=== PATIENT | female | born 1985 | race African-American/Black ===

== ENCOUNTER 2016-03-07 09:33 | Inpatient (IN) | payer OTHER ==
[2016-03-07] MEDS ORDERED: HYDROmorphone 1 MG/ML 1 ML SYRINGE IVP STA ×2 (10:11→12:18)
[2016-03-07] MEDS ORDERED: SODIUM CHLORIDE 0.9% 1,000 ML IV STA (10:12)
[2016-03-07] MEDS ORDERED: AMPICILLIN-SULBACTAM 3 GM in SODIUM CHLORIDE 0.9% 100 ML IVPB STA (10:13)
[2016-03-07 10:58] LABS: Basophils % (A) 0 %; CH 28.4; CHCM 32.9; Eosinophils # (A) 0.2 k/uL (0-0.7); Eosinophils % (A) 1 %; HCT 36.8 % (34.0-46.0); HDW 2.28; HGB 11.7 gm/dL (11.4-16.0); Luc # (Auto) 0.12; Luc % (Auto) 1; Lymphocytes # (A) 1.9 k/uL (1.0-4.8); Lymphocytes % (A) 14 %; MCH 27.5 pg (25.0-35.0); MCHC 31.7 g/dL (31.0-37.0); MCV 86.7 fL (80.0-100.0); Mean Platelet Volume 7.8; Monocytes # (A) 0.5 k/uL (0-1.0); Monocytes % (A) 4 %; Neutrophils # (A) 10.5 k/uL (1.3-7.7); Neutrophils % (A) 79 %; RBC 4.25 m/uL (3.80-5.40); RDW 12.8 % (11.5-15.5); WBC 13.2 k/uL (3.8-10.6); WBC (Perox) 13.86
[2016-03-07] MEDS ORDERED: IV VANCOMYCIN PER PHARMACY 1 EACH MISC MISCELLANE PRN ×2 (11:01→14:17)
[2016-03-07] MEDS ORDERED: VANCOMYCIN 1,250 MG in SODIUM CHLORIDE 0.9% 250 ML IVPB STA (11:01)
--- NOTE | 2016-03-07 11:01 | ED ---
Skin/Abscess/FB HPI - General Chief complaint: Skin/Abscess/Foreign Body Stated complaint: BOIL UNDER RT ARM Time Seen by Provider: 03/07/16 10:03 Source: patient Mode of arrival: ambulatory Limitations: no limitations - History of Present Illness Initial comments: This 31-year-old after medical female presents complaining of some right axillary pain. She states that she developed the pain and swelling approximately one week ago. She had the abscess drained in the emergency department approximately 3 days ago. This has not improved her symptoms. She rates the pain as severe in nature. She has tried some Motrin as well as [place] with limited relief. She was prescribed Bactrim and she's been taking this. She has a fever of 101 at home. She has a history of hidradenitis suppurativa. She has had previous surgeries on both her left and right axillary regions. No other complaints or modifying factors. - Related Data Home Medications Medication Instructions Recorded Confirmed Ibuprofen [Motrin] 400 mg PO Q6HR PRN 03/07/16 03/07/16 Sulfamethox-Tmp 800-160Mg [Bactrim 1 tab PO Q12HR 03/07/16 03/07/16 DS 800-160 mg] Previous Rx's Medication Instructions Recorded HYDROcodone/APAP 5-325MG [[place] 1 tab PO Q4HR PRN #20 tab 02/05/15 5-325] Allergies Allergy/AdvReac Type Severity Reaction Status Date / Time No Known Allergies Allergy Verified 03/07/16 10:12 Review of Systems ROS Statement: Those systems with pertinent positive or pertinent negative responses have been documented in the HPI. ROS Other: All systems not noted in ROS Statement are negative. Past Medical History Past Medical History: Skin Disorder, Syncope Additional Past Medical History / Comment(s): 02/03/15 Pt admitted to [facility] ER with abscess in L armpit. Pt has had extensive surgery in the past for this abscess but it has come back. Pt was on clindamycin about 2 weeks ago. She is admitted with hidadenitis suppurativa. Other HX: L/R axillae hidradenitis with ABX and surgical txs, syncopy, UTI, chronic pain. History of Any Multi-Drug Resistant Organisms: MRSA Date of last positivie culture/infection: 12/23/2014 MDRO Source:: left axilla Past Surgical History: Section Additional Past Surgical History / Comment(s): R axillary abscess (hidradenitis suppuriativa) removal, L axillary abscess (hidradenitis suppurativa) surgery- large excision with wound vac, sweat glands removed. Past Anesthesia/Blood Transfusion Reactions: No Reported Reaction Additional Past Anesthesia/Blood Transfusion Reaction / Comment(s): Pt received blood without reaction after 1st childbirth. Past Psychological History: Anxiety Additional Psychological History / Comment(s): Works at a local [employer]. Lives in the family home with her children. Did not have a history of experience, travels. No noted current animal exposures. Smoking Status: Current every day smoker Past Alcohol Use History: Occasional Additional Past Alcohol Use History / Comment(s): started smoking at age 19 smokes 1/2 ppd- smoking cessation boooklet given to pt. Past Drug Use History: None Reported - Past Family History Father Family Medical History: No Reported History Additional Family Medical History / Comment(s): Father is healthy Mother Family Medical History: No Reported History Additional Family Medical History / Comment(s): Mother is healthy General Exam - General Exam Comments Initial Comments: GENERAL: The patient is well nourished and well hydrated. VITAL SIGNS: Heart rate, blood pressure, respiratory rate reviewed as recorded in nurse's notes. EYES: Pupils are round and reactive. Extraocular movements are intact. No conjunctival / lid redness or swelling. ENT: No external evidence of injury, swelling, or ecchymosis. Airway is patent. Throat is clear. NECK: Nontender. No swelling or evidence of injury. No subcutaneous emphysema. Trachea is midline. No thyroid mass. HEART: Regular rate and rhythm. Good peripheral pulses. LUNGS/CHEST: Breath sounds clear and equal bilaterally. No rales, rhonchi, or wheezes. No ecchymosis, subcutaneous emphysema, or tenderness. ABDOMEN: Abdomen soft without tenderness. No palpable masses or organomegaly. No peritoneal signs. No abdominal wall swelling or ecchymosis. EXTREMITIES: The patient will barely move her right arm due to the pain associated with the right axillary abscess. No thoracolumbar tenderness. NEUROLOGIC: Sensation is grossly intact. Cranial nerve exam reveals face is symmetrical, tongue is midline, speech is clear. SKIN: There is a large tender fluctuant erythematous abscess noted to the right axillary region. PSYCHIATRIC: Alert and oriented. Appropriate behavior and judgment. Limitations: no limitations Course Vital Signs 03/07/16 03/07/16 03/07/16 09:41 10:01 10:47 Temperature 100.5 F H 98.3 F Pulse Rate 84 86 79 Respiratory 20 18 15 Rate Blood Pressure 130/82 137/72 106/63 O2 Sat by Pulse 99 99 99 Oximetry 03/07/16 11:54 Temperature 98.3 F Pulse Rate 83 Respiratory 14 Rate Blood Pressure 110/63 O2 Sat by Pulse 99 Oximetry Medical Decision Making - Medical Decision Making The patient was seen and examined. All diagnostics were reviewed. An IV is started patient is hydrated. She receives antibiotics intravenously and IV Dilaudid for pain. She is placed on nothing by mouth status. Laboratory is reviewed and it appears that she does have a slight leukocytosis. The case is discussed with Dr. Mason from general surgery and she will see the patient in the near future. It is felt as though the patient may require operative intervention for treatment. She is still having pain on recheck and receives additional Dilaudid. She will be going to the operating room in the near future. - Lab Data Result diagrams: 03/07/16 10:42 03/07/16 10:42 Lab Results 03/07/16 03/07/16 03/07/16 Range/Units 10:42 10:42 10:42 WBC 13.2 H (3.8-10.6) k/uL RBC 4.25 (3.80-5.40) m/uL Hgb 11.7 (11.4-16.0) gm/dL Hct 36.8 (34.0-46.0) % MCV 86.7 (80.0-100.0) fL MCH 27.5 (25.0-35.0) pg MCHC 31.7 (31.0-37.0) g/dL RDW 12.8 (11.5-15.5) % Plt Count 244 (150-450) k/uL Neutrophils % 79 % Lymphocytes % 14 % Monocytes % 4 % Eosinophils % 1 % Basophils % 0 % Neutrophils # 10.5 H (1.3-7.7) k/uL Lymphocytes # 1.9 (1.0-4.8) k/uL Monocytes # 0.5 (0-1.0) k/uL Eosinophils # 0.2 (0-0.7) k/uL Basophils # 0.0 (0-0.2) k/uL PT 10.8 (9.0-12.0) sec INR 1.1 (<1.1) APTT 24.6 (22.0-30.0) sec Sodium 145 (137-145) mmol/L Potassium 4.0 (3.5-5.1) mmol/L Chloride 106 (98-107) mmol/L Carbon Dioxide 26 (22-30) mmol/L Anion Gap 13 mmol/L BUN 5 L (7-17) mg/dL Creatinine 0.60 (0.52-1.04) mg/dL Est GFR (MDRD) Af Amer >60 (>60 ml/min/1.73 sqM) Est GFR (MDRD) Non-Af >60 (>60 ml/min/1.73 sqM) Glucose 109 H (74-99) mg/dL Calcium 10.0 (8.4-10.2) mg/dL Total Bilirubin 0.5 (0.2-1.3) mg/dL AST 14 (14-36) U/L ALT 23 (9-52) U/L Alkaline Phosphatase 72 (38-126) U/L Total Protein 7.4 (6.3-8.2) g/dL Albumin 4.0 (3.5-5.0) g/dL HCG, Qual Not Detected Disposition Clinical Impression: Abscess of right axilla, Hidradenitis suppurativa, Fever, Leukocytosis Disposition: ADMITTED IP TO THIS [facility] Condition: Fair Time of Disposition: : Decision Date: 03/07/16 Decision Time: 13:
[2016-03-07 11:05] LABS: HCG,Qualitative Serum Not Detected
[2016-03-07 11:08] LABS: INR 1.1 (<1.1); Partial Thromboplastin Time 24.6 sec (22.0-30.0); Prothrombin Time 10.8 sec (9.0-12.0)
[2016-03-07 11:18] LABS: ALT 23 U/L (9-52); AST 14 U/L (14-36); Alkaline Phosphatase 72 U/L (38-126); Anion Gap 13 mmol/L; Blood Urea Nitrogen 5 mg/dL (7-17); Carbon Dioxide 26 mmol/L (22-30); Chloride 106 mmol/L (98-107); Glucose 109 mg/dL (74-99); Non-African American GFR(MDRD) >60 (>60 ml/min/1.73 sqM); Sodium 145 mmol/L (137-145); Total Bilirubin 0.5 mg/dL (0.2-1.3); Total Protein 7.4 g/dL (6.3-8.2)
[2016-03-07] MEDS ORDERED: IV FLUID CONTINUATION 1,000 ML IV ONE (14:08)
--- NOTE | 2016-03-07 14:14 | P.GSHP ---
History of Present Illness H&P Date: 03/07/16 Chief Complaint: Right axilla abscess 31 years old female with known history of axillary hidradenitis presents with pain and swelling in the right axilla with decreased range of motion. She had prior incision and drainage of axillary abscess on both sides. She underwent incision and drainage in the ER on Saturday and was started on Bactrim. However this continued to worsen and she comes to ER at [facility]. Prior history of MRSA skin infections. Chronic cigarette smoking half pack per day. Denies use of illicit drug - Review of Systems Comment: Constitutional: Denies fever, weight loss or loss of appetite HEENT: No difficulty in vision or hearing. Denies dysphagia. Cardiovascular: Denies chest pain, palpitations, dizziness, shortness of breath. Respiratory: Recent upper respiratory tract infection with dry cough. Long- standing asthma well controlled with rescue inhalers. Gastrointestinal: No recent change in bowel habits, no abdominal pain, no nausea or vomiting. Genitourinary: No urinary incontinence, hematuria or dysuria Neurologic: No seizures, denies weakness in upper or lower extremities Past Medical History Past Medical History: Skin Disorder, Syncope Additional Past Medical History / Comment(s): 02/03/15 Pt admitted to [facility] ER with abscess in L armpit. Pt has had extensive surgery in the past for this abscess but it has come back. Pt was on clindamycin about 2 weeks ago. She is admitted with hidadenitis suppurativa. Other HX: L/R axillae hidradenitis with ABX and surgical txs, syncopy, UTI, chronic pain. History of Any Multi-Drug Resistant Organisms: MRSA Date of last positivie culture/infection: 12/23/2014 MDRO Source:: left axilla Past Surgical History: Section Additional Past Surgical History / Comment(s): R axillary abscess (hidradenitis suppuriativa) removal, L axillary abscess (hidradenitis suppurativa) surgery- large excision with wound vac, sweat glands removed. Past Anesthesia/Blood Transfusion Reactions: No Reported Reaction Additional Past Anesthesia/Blood Transfusion Reaction / Comment(s): Pt received blood without reaction after 1st childbirth. 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 Lives in the family home with her children. Did not have a history of experience, travels. No noted current animal exposures. Smoking Status: Current every day smoker Past Alcohol Use History: Occasional Additional Past Alcohol Use History / Comment(s): started smoking at age 19 smokes 1/2 ppd- smoking cessation boooklet given to pt. Past Drug Use History: None Reported - Past Family History Father Family Medical History: No Reported History Additional Family Medical History / Comment(s): Father is healthy Mother Family Medical History: No Reported History Additional Family Medical History / Comment(s): Mother is healthy Medications and Allergies Home Medications Medication Instructions Recorded Confirmed Type Ibuprofen [Motrin] 400 mg PO Q6HR PRN 03/07/16 03/07/16 History Sulfamethox-Tmp 800-160Mg [Bactrim 1 tab PO Q12HR 03/07/16 03/07/16 History DS 800-160 mg] Allergies Allergy/AdvReac Type Severity Reaction Status Date / Time No Known Allergies Allergy Verified 03/07/16 10:12 Surgical - Exam Vital Signs Temp Pulse Resp BP Pulse Ox 100.5 F H 84 20 130/82 99 03/07/16 09:41 03/07/16 09:41 03/07/16 09:41 03/07/16 09:41 03/07/16 09:41 Gen.: Patient is alert and oriented to time place and person and cooperative with exam. She is in distress and crying secondary to pain. Chest: Bilateral breath sounds present Cardiovascular: S1 and S2 with no murmurs Integumentary: Multiple abscesses in right axilla with chronic hidradenitis Musculoskeletal: Limited range of motion of the right arm secondary to pain Results - Labs 03/07/16 10:42 03/07/16 10:42 Assessment and Plan (1) Abscess of right axilla Status: Acute (2) Leukocytosis Status: Acute (3) Hidradenitis suppurativa Status: Acute (4) Leukocytosis Status: Acute Plan: Right axillary abscess Known axillary hidradenitis Vancomycin IV in ER Incision and drainage in operating room. Full consent obtained from the patient after explaining the risks, benefits and potential complications and she elected to undergo right axillary incision and drainage for axillary abscess. The risks, benefits and potential complications were discussed and she elected to undergo the procedure.
[2016-03-07] MEDS ORDERED: ONDANSETRON 4 MG/2 ML VIAL ONE (14:23)
[2016-03-07] MEDS ORDERED: PROPOFOL 10 MG/ML 20 ML VIAL IV ONE (14:23)
[2016-03-07] MEDS ORDERED: fentaNYL (PF) 50 MCG/ML 2 ML AMP ONE (14:23)
[2016-03-07] MEDS ORDERED: LIDOCAINE 1% INJ 10MG/ML (20 ML MDV) ONE (14:23)
[2016-03-07] MEDS ORDERED: SODIUM CHLORIDE 0.9% 1,000 ML BAG ONE (14:23)
[2016-03-07] MEDS ORDERED: SUCCINYLCHOLINE CHLORIDE 100 MG/5 ML SYR IV ONE (14:23)
[2016-03-07] MEDS ORDERED: HYDROmorphone (PF) 1 MG/ML ONE (14:23)
[2016-03-07] MEDS ORDERED: MIDAZOLAM 2 MG/2 ML VIAL ONE (14:23)
--- NOTE | 2016-03-07 14:55 | P.OP ---
Date of Procedure: 03/07/16 Preoperative Diagnosis: Right axillary abscess History of multiple axillary abscess and MRSA infection Bilateral axillary hidradenitis Chronic smoking Postoperative Diagnosis: Same Procedure(s) Performed: Incision and drainage of right axillary abscess. Post debridement measurement 3 x 2 x 1 cm. Implants: NA Anesthesia: CRISTINEA Surgeon: Jessica Mason Pathology: other Condition: other (ASA2) Disposition: PACU Indications for Procedure: 31 years old female with prior history of axillary abscesses secondary to hydradenitis and chronic smoking presents with painful swelling and limited range of motion of the right arm. She is febrile and has leukocytosis secondary to axillary abscess. Informed consent obtained from the patient and she elected to undergo incision and drainage of right axillary abscess. The risks, benefits and potential complications were discussed with the patient. Operative Findings: Right axillary abscess. 10 mL of farhana pus drained. Final post-debridement measurement 3 x 1 x 2 cm. Description of Procedure: Patient was brought to the operating room and placed in supine position with both arms out. Gen. anesthesia with endotracheal intubation was performed as per anesthesia team. Chlorhexidine was used to prep the skin followed by application of sterile drapes. A timeout was performed to verify correct patient, correct procedure and correct side. A 3 x 1cm elliptical incision was made over the area of maximum fluctuance using Bovie electrocautery. 10 mL of farhana pus was drained which was sent for aerobic and anaerobic cultures. The cavity was opened. Post debridement cavity measured 3 x 1 x 2 cm. Hemostasis was checked. The cavity was irrigated with half-strength hydrogen peroxide. This was packed with half-inch iodoform. Dressings were applied. Patient tolerates procedure well and was taken to postanesthesia care unit in stable condition. The sponge, instrument and needle count were correct 2 Patient tolerated the procedure well and was sent to post anesthesia care unit in stable condition.
[2016-03-07] MEDS ORDERED: HYDROmorphone 1 MG/ML 1 ML SYRINGE IVP ONE ×4 (15:21→15:45)
[2016-03-07] MEDS ORDERED: SODIUM CHLORIDE 0.9% 1,000 ML IV ONE ×2 (17:00)
[2016-03-07] MEDS: DOCUSATE 100 MG CAP PO SCH (19:44)
[2016-03-07] MEDS: HYDROmorphone 1 MG/ML 1 ML SYRINGE IVP PRN (19:44)
[2016-03-07] MEDS: HEPARIN SODIUM,PORCINE 5,000 UNIT/ML 1 ML VIAL SQ SCH (19:44)
[2016-03-07] MEDS: HYDROcodone/APAP 5-325MG 1 EACH TAB PO PRN (21:08)
[2016-03-07] MEDS: VANCOMYCIN 1,250 MG in SODIUM CHLORIDE 0.9% 250 ML IVPB SCH (21:30)
[2016-03-08] MEDS: HEPARIN SODIUM,PORCINE 5,000 UNIT/ML 1 ML VIAL SQ SCH ×4 (00:13→23:52)
[2016-03-08] MEDS: HYDROcodone/APAP 5-325MG 1 EACH TAB PO PRN ×4 (00:28→20:29)
[2016-03-08] MEDS: HYDROmorphone 1 MG/ML 1 ML SYRINGE IVP PRN ×4 (01:52→22:10)
[2016-03-08 07:11] LABS: Basophils % (A) 0 %; CH 27.9; CHCM 31.8; Eosinophils # (A) 0.2 k/uL (0-0.7); Eosinophils % (A) 2 %; HCT 31.6 % (34.0-46.0); HDW 2.21; HGB 10.1 gm/dL (11.4-16.0); Luc # (Auto) 0.21; Luc % (Auto) 2; Lymphocytes # (A) 2.8 k/uL (1.0-4.8); Lymphocytes % (A) 27 %; MCH 28.2 pg (25.0-35.0); MCV 88.1 fL (80.0-100.0); Monocytes # (A) 0.4 k/uL (0-1.0); Monocytes % (A) 4 %; Neutrophils % (A) 66 %; RBC 3.58 m/uL (3.80-5.40); RDW 12.6 % (11.5-15.5); WBC 10.7 k/uL (3.8-10.6); WBC (Perox) 11.39
[2016-03-08 07:32] LABS: ALT 22 U/L (9-52); AST 13 U/L (14-36); Alkaline Phosphatase 63 U/L (38-126); Anion Gap 8 mmol/L; Blood Urea Nitrogen 4 mg/dL (7-17); Calcium 8.8 mg/dL (8.4-10.2); Carbon Dioxide 26 mmol/L (22-30); Chloride 106 mmol/L (98-107); Glucose 96 mg/dL (74-99); Non-African American GFR(MDRD) >60 (>60 ml/min/1.73 sqM); Sodium 140 mmol/L (137-145); Total Bilirubin 0.3 mg/dL (0.2-1.3)
[2016-03-08] MEDS ORDERED: HYDROmorphone 1 MG/ML 1 ML SYRINGE IVP STA (08:45)
[2016-03-08] MEDS: DOCUSATE 100 MG CAP PO SCH ×2 (09:02→20:30)
[2016-03-08] MEDS: VANCOMYCIN 1,250 MG in SODIUM CHLORIDE 0.9% 250 ML IVPB SCH ×2 (09:03→19:45)
[2016-03-08] MEDS ORDERED: KETOROLAC 30 MG/ML 1 ML VIAL IVP PRN (13:06)
--- NOTE | 2016-03-08 13:41 | P.PN ---
Subjective Principal diagnosis: Right axilla abscess S/P incision and drainage of right axillary abscess. Postop day #1. Pain is fairly controlled. No fever or chills or rigors. Bactrim has been removed and repacked. Cultures no growth. Leukocytosis improving. Objective - Vital Signs Vital signs: Vital Signs Temp 96.4 F L 03/08/16 09:54 Pulse 68 03/08/16 09:54 Resp 16 03/08/16 09:54 BP 115/77 03/08/16 09:54 Pulse Ox 100 03/08/16 09:54 Intake & Output 03/07/16 03/08/16 03/08/16 18:59 06:59 18:59 Intake Total 1000 1580 Output Total 10 Balance 990 1580 Intake: IV 1000 Intake, IV Titration 800 Amount Sodium Chloride 0.9% 1, 800 000 ml As IV .[employer] ONE Rx#:[id number] Oral 780 Output: Estimated Blood Loss 10 Other: Voiding Method Toilet - Exam Patient is alert and oriented to time And Person and Cooperative with Exam. Packing in place with dressing clean dry and intact. - Labs CBC & Chem 7: 03/08/16 06:42 03/08/16 06:42 Labs: Abnormal Lab Results - Last 24 Hours (Table) 03/08/16 03/08/16 Range/Units 06:42 06:42 WBC 10.7 H (3.8-10.6) k/uL RBC 3.58 L (3.80-5.40) m/uL Hgb 10.1 L (11.4-16.0) gm/dL Hct 31.6 L (34.0-46.0) % BUN 4 L (7-17) mg/dL AST 13 L (14-36) U/L Total Protein 6.0 L (6.3-8.2) g/dL Albumin 3.0 L (3.5-5.0) g/dL Microbiology - Last 24 Hours (Table) 03/07/16 14:44 Gram Stain - Preliminary Axilla - Right Wound Culture - Preliminary 03/07/16 14:44 Anaerobic Culture - Preliminary Axilla - Right Assessment and Plan (1) Abscess of right axilla Status: Acute (2) Leukocytosis Status: Acute (3) Hidradenitis suppurativa Status: Acute (4) Leukocytosis Status: Acute Plan: 1. Remove packing. Let patient shower. Repack with aquacel silver 2. Consult case management for home health care nursing 3. Antibiotics as per infectious disease 4. Stable from discharge from general surgery standpoint
--- NOTE | 2016-03-08 15:33 | P.PN ---
Progress Note - Text circuit manager did offer home care to be set up for treatment and follow-up and home care setting as requested by surgical service patient is refusing home care at this time states that she has a mother and feels that between her mother and herself she can take care of the wound and does not want home care as offered at this time is declining home care
--- NOTE | 2016-03-08 20:06 | P.CONS ---
History of Present Illness - Reason for Consult Consult date: 03/08/16 - Chief Complaint Abscess right axilla - History of Present Illness 31-year-old woman presents to hospital with increasing pain to her right axilla. She was having some outpatient therapy but despite this the area became considerably more painful, swollen with drainage. With history of a prior extensive abscess to the left axilla she presented emergency center. She' s been seen by general surgery and taken to the operating room for the debridement of the extensive abscess area to the right axillary site. Overall goal will be to debrided the site well to prevent further abscess formation as was very successful to the left axilla. She has a known history of hidradentis suppurativa. She does have a known history of prior MRSA infection. She does relate she was in the outpatient setting and started on antibiotic therapy but never had enough improvement before she presented to the emergency center for the surgical intervention. Other than pain she's doing quite well. She denying high-grade fevers, chills or rigors. Review of Systems HEENT:Denies headache or acute visual change. Denies sinus or mouth discomforts. Denies neck stiffness or pain. Denies significant oral cavity pain. Denies difficulty on swallowing. Lungs: Denies significant shortness of breath, cough, sputum production, or hemoptysis. Cardiovascular: Denies significant shortness of breath, chest pain, chest wall pain, orthopnea, dyspnea on exertion, syncope Gastrointestinal:Denies nausea, vomiting, diarrhea, constipation, hematemesis, melena, hematochezia. No no significant change of bowel habit noticed. Appetite however is been poor Musculoskeletal: denies significant myalgias or arthralgias. No new joint swelling. Denies new back pain. Skin: Significant abscess to the right axilla. Prior abscess left axilla completely healed after the drainage and wound VAC therapy. Neuro: Denies headache or visual change. Denies any new onset weakness or difficulty with ambulation. Denies falls or seizures. Psychiatric:Denies anxiety or depression. Endocrine: Denies significant fatigue, denies significant weight loss or weight gain. Past Medical History Past Medical History: Skin Disorder, Syncope Additional Past Medical History / Comment(s): 03-07-16 RT AXILLARY ABCESS. Pt admitted to [facility] ER with abscess in L armpit. Pt has had extensive surgery in the past for this abscess but it has come back. Pt was on clindamycin about 2 weeks ago. She is admitted with hidadenitis suppurativa. Other HX: L/R axillae hidradenitis with ABX and surgical txs, syncopy, UTI, chronic pain. History of Any Multi-Drug Resistant Organisms: MRSA Year Discovered:: 12/23/2014 MDRO Source:: left axilla Past Surgical History: Section Additional Past Surgical History / Comment(s): R axillary abscess (hidradenitis suppuriativa) removal, L axillary abscess (hidradenitis suppurativa) surgery- large excision with wound vac, sweat glands removed.03-07-16 I&D RT AXILLARY ABCESS. Past Anesthesia/Blood Transfusion Reactions: No Reported Reaction Additional Past Anesthesia/Blood Transfusion Reaction / Comm: Pt received blood without reaction after 1st childbirth. Past Psychological History: Anxiety Additional Psychological History / Comment(s): Works at a local [employer]. Lives in the family home with her MOM and children. Did not have a history of experience, travels. No noted current animal exposures. Smoking Status: Current every day smoker Past Alcohol Use History: Occasional Additional Past Alcohol Use History / Comment(s): started smoking at age 19 smokes 1/2 ppd- smoking cessation boooklet given to pt. Past Drug Use History: None Reported - Past Family History Father Family Medical History: No Reported History Additional Family Medical History / Comment(s): Father is healthy Mother Family Medical History: No Reported History Additional Family Medical History / Comment(s): Mother is healthy Medications and Allergies Home Medications and Allergies Comment(s): Current Medications Acetaminophen/Hydrocodone Bitart ([place] 5-325) 1 each PO Q4HR PRN PRN Reason: moderate Pain Last Admin: 03/08/16 15:44 Dose: 1 each Docusate Sodium (Colace) 100 mg PO BID HAYDEE Last Admin: 03/08/16 09:02 Dose: 100 mg Heparin Sodium (Porcine) (Heparin) 5,000 unit SQ Q8HR HAYDEE Last Admin: 03/08/16 19:45 Dose: 5,000 unit Hydromorphone HCl (Dilaudid) 1 mg IVP Q6HR PRN PRN Reason: severe pain Last Admin: 03/08/16 16:54 Dose: 1 mg Vancomycin HCl 1,250 mg/ (Sodium Chloride) 250 mls @ 125 mls/hr IVPB Q8HR HAYDEE Last Admin: 03/08/16 19:45 Dose: 125 mls/hr Ketorolac Tromethamine (Toradol) 30 mg IVP Q6HR PRN PRN Reason: pain Stop: 03/12/16 13:06 Miscellaneous Information (Vancomycin Trough Due) 0 each MISCELLANE DIRECTED ONE Stop: 03/09/16 07:01 Home Medications Medication Instructions Recorded Confirmed Type Ibuprofen [Motrin] 400 mg PO Q6HR PRN 03/07/16 03/07/16 History Sulfamethox-Tmp 800-160Mg [Bactrim 1 tab PO Q12HR 03/07/16 03/07/16 History DS 800-160 mg] Allergies Allergy/AdvReac Type Severity Reaction Status Date / Time No Known Allergies Allergy Verified 03/07/16 10:12 Physical Exam Vitals: Vital Signs Temp Pulse Pulse Resp BP Pulse Ox 03/08/16 15:00 97 F L 63 17 115/69 100 03/08/16 09:54 96.4 F L 68 16 115/77 100 03/08/16 06:00 97.9 F 66 16 102/56 99 03/07/16 20:15 90 106/70 100 03/07/16 20:00 94 108/63 96 Intake and Output 03/08/16 03/08/16 03/08/16 06:59 14:59 22:59 Intake Total 1280 Balance 1280 Intake: Intake, IV Titration 800 Amount Sodium Chloride 0.9% 1, 800 000 ml As IV .[facility] Rx#:[id number] Oral 480 HEENT: Anicteric conjunctiva are pink and moist nasal mucosa grossly intact without significant lesions, there is no thrush. Neck: The neck is supple without significant lymphadenopathy or thyromegaly. Lungs: Good bilateral air entry without significant crackles or wheezing. There is no significant bronchial sounds. There is no egophony or dullness. Heart: Regular rate and rhythm with an audible S1-S2, no S3 no S4. There is no significant murmur click or rub, PMI was nondisplaced. Abdomen: Positive bowel sounds soft and nontender without palpable masses or organomegaly. There was no guarding or rebound. Extremities: Upper extremities reveal complete resolution of the prior abscess of the effects of with complete healing and minimal scar formation. The right axilla is evidence of the recent surgical incision and drainage. The packing is removed. It is repacked with the silver dressing. She received Dilaudid for pain control. There is no purulence being seen. The site is somewhat tender. No extensive or traveling cellulitis is noted Neuro: Awake alert oriented to person place and time. There are no acute new gross focal sensory motor deficits. Results CBC & Chem 7: 03/08/16 06:42 03/08/16 06:42 Labs: Abnormal Lab Results - Last 24 Hours (Table) 03/08/16 03/08/16 Range/Units 06:42 06:42 WBC 10.7 H (3.8-10.6) k/uL RBC 3.58 L (3.80-5.40) m/uL Hgb 10.1 L (11.4-16.0) gm/dL Hct 31.6 L (34.0-46.0) % BUN 4 L (7-17) mg/dL AST 13 L (14-36) U/L Total Protein 6.0 L (6.3-8.2) g/dL Albumin 3.0 L (3.5-5.0) g/dL Microbiology - Last 24 Hours (Table) 03/07/16 15:36 Blood Culture - Preliminary Blood No Growth after 24 hours 03/07/16 14:44 Gram Stain - Preliminary Axilla - Right Wound Culture - Preliminary 03/07/16 14:44 Anaerobic Culture - Preliminary Axilla - Right Laboratory Results WBC 10.7 k/uL (3.8-10.6) H 03/08/16 06:42 RBC 3.58 m/uL (3.80-5.40) L 03/08/16 06:42 Hgb 10.1 gm/dL (11.4-16.0) L 03/08/16 06:42 Hct 31.6 % (34.0-46.0) L 03/08/16 06:42 MCV 88.1 fL (80.0-100.0) 03/08/16 06:42 MCH 28.2 pg (25.0-35.0) 03/08/16 06:42 MCHC 32.0 g/dL (31.0-37.0) 03/08/16 06:42 RDW 12.6 % (11.5-15.5) 03/08/16 06:42 Plt Count 217 k/uL (150-450) 03/08/16 06:42 Neutrophils % 66 % 03/08/16 06:42 Lymphocytes % 27 % 03/08/16 06:42 Monocytes % 4 % 03/08/16 06:42 Eosinophils % 2 % 03/08/16 06:42 Basophils % 0 % 03/08/16 06:42 Neutrophils # 7.0 k/uL (1.3-7.7) 03/08/16 06:42 Lymphocytes # 2.8 k/uL (1.0-4.8) 03/08/16 06:42 Monocytes # 0.4 k/uL (0-1.0) 03/08/16 06:42 Eosinophils # 0.2 k/uL (0-0.7) 03/08/16 06:42 Basophils # 0.0 k/uL (0-0.2) 03/08/16 06:42 PT 10.8 sec (9.0-12.0) 03/07/16 10:42 INR 1.1 (<1.1) 03/07/16 10:42 APTT 24.6 sec (22.0-30.0) 03/07/16 10:42 Sodium 140 mmol/L (137-145) 03/08/16 06:42 Potassium 4.0 mmol/L (3.5-5.1) 03/08/16 06:42 Chloride 106 mmol/L (98-107) 03/08/16 06:42 Carbon Dioxide 26 mmol/L (22-30) 03/08/16 06:42 Anion Gap 8 mmol/L 03/08/16 06:42 BUN 4 mg/dL (7-17) L 03/08/16 06:42 Creatinine 0.65 mg/dL (0.52-1.04) 03/08/16 06:42 Est GFR (MDRD) Af Amer >60 (>60 ml/min/1.73 sqM) 03/08/16 06:42 Est GFR (MDRD) Non-Af >60 (>60 ml/min/1.73 sqM) 03/08/16 06:42 Glucose 96 mg/dL (74-99) 03/08/16 06:42 Calcium 8.8 mg/dL (8.4-10.2) 03/08/16 06:42 Total Bilirubin 0.3 mg/dL (0.2-1.3) 03/08/16 06:42 AST 13 U/L (14-36) L 03/08/16 06:42 ALT 22 U/L (9-52) 03/08/16 06:42 Alkaline Phosphatase 63 U/L (38-126) 03/08/16 06:42 Total Protein 6.0 g/dL (6.3-8.2) L 03/08/16 06:42 Albumin 3.0 g/dL (3.5-5.0) L 03/08/16 06:42 HCG, Qual Not Detected 03/07/16 10:42 Microbiology 03/07/16 15:36 Blood Blood Culture - Preliminary No Growth after 24 hours 03/07/16 14:44 Axilla - Right Gram Stain - Preliminary 03/07/16 14:44 Axilla - Right Wound Culture - Preliminary 03/07/16 14:44 Axilla - Right Anaerobic Culture - Preliminary Assessment and Plan (1) Abscess of right axilla Narrative/Plan: Pleasant 31-year-old woman presents to Hospital with increasing pain and difficulties to the right axillary area. Has a history of prior abscess to the other axilla to require surgical drainage. Because she was not improving at home percentage emergency center and was admitted. She's been seen by surgery as had the incision and drainage and debridement to that area. She'll follow will allow a similar outcome she's had to her left axilla. Sometimes surgical debridements are ideal in persons with her chronic inflammatory skin condition. Likely has MRSA infection and is currently receiving vancomycin therapy. Await final cultures and hopefully we'll to go home on Bactrim double strength 3 times per day to complete her course of therapy over the next 10-14 days. Will need to have home care so the axillary abscess site can be packed with the silver rope 3 times per week. She understands importance of adequate protein intake. Also but it was zinc as requested. Status: Acute (2) Hidradenitis suppurativa Status: Acute (3) Leukocytosis Status: Acute
--- NOTE | 2016-03-08 21:24 | HP ---
DATE OF ADMISSION: [id number][id number]-old female with history of hidradenitis suppurativa came in with abscess of right axilla ( ) the patient does not have any chills, nausea, vomiting. Patient is on IV fluids. Patient was complaining of severe pain in that area. Biopsy ( ) microbiology showing Gram-positive cocci as well as Gram-negative bacilli. Patient was given a dose of Unasyn and Infectious Disease has already evaluated the patient. They continued vancomycin. I will let Infectious Disease aware of the Gram-negative ( ) in the culture of the axilla. REVIEW OF SYSTEMS: CONSTITUTIONAL: No fever, no malaise, no fatigue. HEENT: No recent visual problems or hearing problems. Denied any sore throat. CARDIOVASCULAR: No chest pain, orthopnea, PND, no palpitations, no syncope. PULMONARY: No shortness of breath, no cough, no hemoptysis. GASTROINTESTINAL: No diarrhea, no nausea, no vomiting, no abdominal pain. Normoactive bowel sounds. NEUROLOGICAL: No headaches, no weakness, no numbness. HEMATOLOGICAL: Denies any bleeding or petechiae. GENITOURINARY: Denies any burning micturition, frequency, or urgency. MUSCULOSKELETAL/RHEUMATOLOGICAL: As described in HPI. ENDOCRINE: Denies any polyuria or polydipsia. The rest of the 14 point review of systems is negative. Past medical history is significant for hidradenitis suppurativa, ( ) in the past, MRSA in the past. SOCIAL HISTORY: Patient is a smoker; smokes about half a pack per day. Denied any alcohol abuse or any drug abuse. FAMILY HISTORY: Father and mother are healthy, without any significant medical problems. Home medications include ibuprofen, Bactrim. ALLERGIES: NO KNOWN DRUG ALLERGIES. PHYSICAL EXAMINATION: VITAL SIGNS: Temperature 100.5, pulse of 84, respiratory rate of 20. Blood pressure is 130/82. saturating at 99% on room air. GENERAL: The patient is alert and oriented x3, not in any acute distress. Well developed, well nourished. HEENT: Pupils are round and equally reacting to light. EOMI. No scleral icterus. No conjunctival pallor. Normocephalic, atraumatic. No pharyngeal erythema. No thyromegaly. CARDIOVASCULAR: S1 and S2 present. No murmurs, rubs, or gallops. PULMONARY: Chest is clear to auscultation, no wheezing or crackles. ABDOMEN: Soft, nontender, nondistended, normoactive bowel sounds. No palpable organomegaly. MUSCULOSKELETAL: No joint swelling or deformity. EXTREMITIES: No cyanosis, clubbing, or pedal edema. NEUROLOGICAL: Gross neurological examination did not reveal any focal deficits. SKIN: No rashes. RIGHT AXILLA: Patient is post-surgically packed, because of which I did not remove the packing. That was already examined by Infectious Disease as well as Surgery. NEUROLOGICAL: Gross neurological examination did not reveal any focal deficits. SKIN: No rashes. LABORATORY DATA: CBC, CMP are abnormal for elevated WBC count of 13,200, hemoglobin 11.7. ASSESSMENT AND PLAN: 1. Sepsis secondary to right axillary abscess. Patient is on vancomycin. Continue with IV fluids. 2. Axillary abscess is secondary to hidradenitis suppurativa. 3. Nicotine abuse. Counseling was provided. 4. Leukocytosis due to assessment #1. Plan is to continue with IV fluids, IV vancomycin. Because of the microbiology report, patient may need Gram-negative coverage with Unasyn as well as anaerobic coverage. Patient's primary care physician is Dr. Richardson.
[2016-03-09] MEDS: VANCOMYCIN 1,250 MG in SODIUM CHLORIDE 0.9% 250 ML IVPB SCH ×3 (00:40→15:52)
[2016-03-09] MEDS: HYDROmorphone 1 MG/ML 1 ML SYRINGE IVP PRN ×2 (06:29→12:59)
[2016-03-09] MEDS ORDERED: VANCOMYCIN TROUGH DUE 1 EACH MISC MISCELLANE ONE (07:00)
[2016-03-09 07:14] LABS: CHCM 31.8; HCT 31.7 % (34.0-46.0); HGB 10.2 gm/dL (11.4-16.0); MCH 28.5 pg (25.0-35.0); MCHC 32.2 g/dL (31.0-37.0); MCV 88.5 fL (80.0-100.0); Mean Platelet Volume 7.1; RBC 3.59 m/uL (3.80-5.40); RDW 12.6 % (11.5-15.5); WBC 5.7 k/uL (3.8-10.6)
[2016-03-09 07:50] LABS: Anion Gap 8 mmol/L; Blood Urea Nitrogen 4 mg/dL (7-17); Calcium 8.9 mg/dL (8.4-10.2); Carbon Dioxide 24 mmol/L (22-30); Chloride 109 mmol/L (98-107); Glucose 86 mg/dL (74-99); Non-African American GFR(MDRD) >60 (>60 ml/min/1.73 sqM); Sodium 141 mmol/L (137-145)
[2016-03-09] MEDS: DOCUSATE 100 MG CAP PO SCH (07:51)
[2016-03-09] MEDS: HEPARIN SODIUM,PORCINE 5,000 UNIT/ML 1 ML VIAL SQ SCH ×2 (07:51→15:52)
[2016-03-09] MEDS: HYDROcodone/APAP 5-325MG 1 EACH TAB PO PRN ×3 (07:52→18:21)
[2016-03-09] MEDS ORDERED: MULTIVITAMINS, THERA 1 EACH TAB PO SCH (12:00)
--- NOTE | 2016-03-09 12:23 | P.PN ---
<Danielle Martínez Nusrat - Last Filed: 03/09/16 12:14> Subjective 31-year-old female being seen on rounds per surgical service for a postop surgical visit in a patient who is status post debridement of an extensive abscess area involving the right axillary area. Currently the patient is sitting up in bed. There is a dressing to the right axillary area is dry. Patient does have a history of prior MRSA infection. Patient has a known history of hidradentis suppurativa. Patient reportedly had been followed in the outpatient setting for the abscess involving the right axillary area had started on antibiotic therapy but there was no significant improvement. Patient presented to the emergency room for surgical intervention which the patient elected to proceed. Did undergo the surgical intervention with a debridement done on March 08. Did discuss with the patient at the bedside the need for home care to participate in the plan of care and that the patient needed to have 3 times a week silver rope packing to the axillary upset site. Patient is now agreeing to have home care set up. Did discuss with the patient case manager who will set up home care for the wound care management Objective - Vital Signs Vital signs: Vital Signs Temp 96.8 F L 03/09/16 07:00 Pulse 64 03/09/16 07:00 Resp 16 03/09/16 07:00 BP 112/64 03/09/16 07:00 Pulse Ox 99 03/09/16 07:00 Intake & Output 03/08/16 03/09/16 03/09/16 18:59 06:59 18:59 Intake Total 1640 Balance 1640 Intake: IV 250 Vancomycin 1,250 mg In 250 Sodium Chloride 0.9% 250 ml @ 125 mls/hr IVPB Q8HR [facility] Rx#:[id number] Intake, IV Titration 650 Amount Sodium Chloride 0.9% 1, 650 000 ml As IV .[facility] Rx#:[id number] Oral 740 Other: Voiding Method Toilet # Voids 1 - Exam Physical exam 31-year-old female talkative appears in no acute distress sitting up oriented 3 Lungs essentially clear adequate air movement bilaterally room air no conversational dyspnea noted Heart S1-S2 audible and regular Abdomen soft nontender reports no nausea vomiting no difficulty in urinating Extremities no pedal edema. The right axillary area surgical dressing in place dressing is dry - Labs CBC & Chem 7: 03/09/16 06:57 03/09/16 06:57 Labs: Abnormal Lab Results - Last 24 Hours (Table) 03/09/16 03/09/16 Range/Units 06:57 06:57 RBC 3.59 L (3.80-5.40) m/uL Hgb 10.2 L (11.4-16.0) gm/dL Hct 31.7 L (34.0-46.0) % Chloride 109 H (98-107) mmol/L BUN 4 L (7-17) mg/dL Microbiology - Last 24 Hours (Table) 03/07/16 15:36 Blood Culture - Preliminary Blood No Growth after 24 hours Assessment and Plan Plan: Impression Status post incision and drainage and debridement of an extensive abscess right axillary area done on March 08 Present on admission right axillary abscess failed outpatient treatment with antibiotic therapy Acute leukocytosis History of prior MRSA infections History of hidradenitis supprativa Chronic nicotine dependency active smoker Plan Continue postop surgical care Continue recommendations antibiotic by infectious disease Follow-up on wound culture Wound care as ordered Silvadene rope packing 3 times a week to the wound right axillary area Patient's been advised to stop smoking cigarettes Set up home care to participate in the plan of care patient has agreed The above dictated assessment and findings were discussed with dr mason Impression and the plan of care have been dictated as directed. Danielle Martínez nurse practitioner acting as a scribe for dr mason <Jessica Mason - Last Filed: 03/09/16 17:13> Objective - Vital Signs Vital signs: Vital Signs Temp 96.4 F L 03/09/16 13:32 Pulse 86 03/09/16 13:32 Resp 17 03/09/16 13:32 BP 121/81 03/09/16 13:32 Pulse Ox 100 03/09/16 13:32 Intake & Output 03/08/16 03/09/16 03/09/16 18:59 06:59 18:59 Intake Total 1640 610 Balance 1640 610 Intake: IV 250 250 Vancomycin 1,250 mg In 250 250 Sodium Chloride 0.9% 250 ml @ 125 mls/hr IVPB Q8HR [facility] Rx#:[id number] Intake, IV Titration 650 Amount Sodium Chloride 0.9% 1, 650 000 ml As IV .[facility] Rx#:[id number] Oral 740 360 Other: Voiding Method Toilet # Voids 1 - Labs CBC & Chem 7: 03/09/16 06:57 03/09/16 06:57 Labs: Abnormal Lab Results - Last 24 Hours (Table) 03/09/16 03/09/16 Range/Units 06:57 06:57 RBC 3.59 L (3.80-5.40) m/uL Hgb 10.2 L (11.4-16.0) gm/dL Hct 31.7 L (34.0-46.0) % Chloride 109 H (98-107) mmol/L BUN 4 L (7-17) mg/dL Microbiology - Last 24 Hours (Table) 03/07/16 15:36 Blood Culture - Preliminary Blood No Growth after 24 hours Assessment and Plan (1) Abscess of right axilla Status: Acute (2) Leukocytosis Status: Acute (3) Hidradenitis suppurativa Status: Acute (4) Leukocytosis Status: Acute Plan: Patient examined. C/O increased pain requiring IV dilaudid . Packing removed with resolution of pain. Wound is clean and has minimmal exudates. USe Aquacel silver rope for packing instead. There were disintegrated pieces of dressing inside the wound. Hence, I recommend using Aquacel silver rope only. Leucocytosis resolved. Cultures- final growth pending. On IV vanco. Antibiotics at discharge as per ID . Home health care nurse for packing changes . Follow up with Dr. Mason in 7-10 days.
[2016-03-09 13:33] VITALS: BP 121/81; PULSE 86; RESP 17; TEMP 96.4
--- NOTE | 2016-03-09 18:07 | PN ---
Patient is admitted with a right arm abscess secondary to hidradenitis suppurativa. Patient is complaining of pain in that area. REVIEW OF SYSTEMS: CARDIOVASCULAR: No chest pain, no orthopnea, no PND, no palpitations. PULMONARY: Denied any shortness of breath. No cough or hemoptysis. GASTROINTESTINAL: No diarrhea, nausea or vomiting. No abdominal pain. Normoactive bowel sounds. NEUROLOGIC: No headaches, no weakness, no numbness. MUSCULOSKELETAL: As described in HPI. Medications were reviewed. PHYSICAL EXAMINATION: VITAL SIGNS: Temperature 96.4, pulse of 86, respiratory rate of 17, blood pressure 128/81. Saturating at 100% on room air. GENERAL: The patient is alert and oriented x3, not in any acute distress. Well developed, well nourished. HEENT: Pupils are round and equally reacting to light. EOMI. No scleral icterus. No conjunctival pallor. Normocephalic, atraumatic. No pharyngeal erythema. No thyromegaly. CARDIOVASCULAR: S1 and S2 present. No murmurs, rubs, or gallops. PULMONARY: Chest is clear to auscultation, no wheezing or crackles. ABDOMEN: Soft, nontender, nondistended, normoactive bowel sounds. No palpable organomegaly. MUSCULOSKELETAL: Right axillary abscess was post-surgically packed. Defer to surgical evaluation for that. EXTREMITIES: No cyanosis, clubbing, or pedal edema. NEUROLOGICAL: Gross neurological examination did not reveal any focal deficits. SKIN: No rashes. LABORATORY DATA: CBC, CMP are essentially within normal limits. Leukocytosis improved. ASSESSMENT AND PLAN: 1. Sepsis secondary to right axillary abscess. Patient had fevers, resolved at this point of time. Patient is on vancomycin. Antibiotic management as per Infectious Disease. 2. Hidradenitis suppurative. 3. Nicotine abuse. 4. Leukocytosis due to assessment #1. PLAN: Continue with antibiotics, pain medications, pain management and IV fluids.
--- NOTE | 2016-03-09 21:25 | P.PN ---
Subjective Principal diagnosis: abscess right axilla 31-year-old woman presents to hospital with increasing pain to her right axilla. She was having some outpatient therapy but despite this the area became considerably more painful, swollen with drainage. With history of a prior extensive abscess to the left axilla she presented emergency center. She' s been seen by general surgery and taken to the operating room for the debridement of the extensive abscess area to the right axillary site. Overall goal will be to debrided the site well to prevent further abscess formation as was very successful to the left axilla. She has a known history of hidradentis suppurativa. She does have a known history of prior MRSA infection. She does relate she was in the outpatient setting and started on antibiotic therapy but never had enough improvement before she presented to the emergency center for the surgical intervention. Other than pain she's doing quite well. She denying high-grade fevers, chills or rigors. she has been cleared by her surgeon for discharge antibiotics for home ordered Objective - Vital Signs Vital signs: Vital Signs Temp 96.4 F L 03/09/16 13:32 Pulse 86 03/09/16 13:32 Resp 17 03/09/16 13:32 BP 121/81 03/09/16 13:32 Pulse Ox 100 03/09/16 13:32 Intake & Output 03/09/16 03/09/16 03/10/16 06:59 18:59 06:59 Intake Total 1090 Balance 1090 Intake: IV 250 Vancomycin 1,250 mg In 250 Sodium Chloride 0.9% 250 ml @ 125 mls/hr IVPB Q8HR ON LICENSE OF [facility] Rx#:[id number] Oral 840 Other: Voiding Method Toilet # Voids 1 - Exam HEENT: Anicteric conjunctiva are pink and moist nasal mucosa grossly intact without significant lesions, there is no thrush. Neck: The neck is supple without significant lymphadenopathy or thyromegaly. Lungs: Good bilateral air entry without significant crackles or wheezing. There is no significant bronchial sounds. There is no egophony or dullness. Heart: Regular rate and rhythm with an audible S1-S2, no S3 no S4. There is no significant murmur click or rub, PMI was nondisplaced. Abdomen: Positive bowel sounds soft and nontender without palpable masses or organomegaly. There was no guarding or rebound. Extremities: Upper extremities reveal complete resolution of the prior abscess of the effects of with complete healing and minimal scar formation. The right axilla is evidence of the recent surgical incision and drainage. The packing is removed. It is repacked with the silver dressing. She received Dilaudid for pain control. There is no purulence being seen. The site is somewhat tender. No extensive or traveling cellulitis is noted Neuro: Awake alert oriented to person place and time. There are no acute new gross focal sensory motor deficits. - Labs CBC & Chem 7: 03/09/16 06:57 03/09/16 06:57 Labs: Abnormal Lab Results - Last 24 Hours (Table) 03/09/16 03/09/16 Range/Units 06:57 06:57 RBC 3.59 L (3.80-5.40) m/uL Hgb 10.2 L (11.4-16.0) gm/dL Hct 31.7 L (34.0-46.0) % Chloride 109 H (98-107) mmol/L BUN 4 L (7-17) mg/dL Microbiology - Last 24 Hours (Table) 03/07/16 14:44 Gram Stain - Final Axilla - Right Wound Culture - Final 03/07/16 15:36 Blood Culture - Preliminary Blood No Growth after 48 hours Laboratory Results WBC 5.7 k/uL (3.8-10.6) 03/09/16 06:57 RBC 3.59 m/uL (3.80-5.40) L 03/09/16 06:57 Hgb 10.2 gm/dL (11.4-16.0) L 03/09/16 06:57 Hct 31.7 % (34.0-46.0) L 03/09/16 06:57 MCV 88.5 fL (80.0-100.0) 03/09/16 06:57 MCH 28.5 pg (25.0-35.0) 03/09/16 06:57 MCHC 32.2 g/dL (31.0-37.0) 03/09/16 06:57 RDW 12.6 % (11.5-15.5) 03/09/16 06:57 Plt Count 206 k/uL (150-450) 03/09/16 06:57 Neutrophils % 66 % 03/08/16 06:42 Lymphocytes % 27 % 03/08/16 06:42 Monocytes % 4 % 03/08/16 06:42 Eosinophils % 2 % 03/08/16 06:42 Basophils % 0 % 03/08/16 06:42 Neutrophils # 7.0 k/uL (1.3-7.7) 03/08/16 06:42 Lymphocytes # 2.8 k/uL (1.0-4.8) 03/08/16 06:42 Monocytes # 0.4 k/uL (0-1.0) 03/08/16 06:42 Eosinophils # 0.2 k/uL (0-0.7) 03/08/16 06:42 Basophils # 0.0 k/uL (0-0.2) 03/08/16 06:42 PT 10.8 sec (9.0-12.0) 03/07/16 10:42 INR 1.1 (<1.1) 03/07/16 10:42 APTT 24.6 sec (22.0-30.0) 03/07/16 10:42 Sodium 141 mmol/L (137-145) 03/09/16 06:57 Potassium 4.0 mmol/L (3.5-5.1) 03/09/16 06:57 Chloride 109 mmol/L (98-107) H 03/09/16 06:57 Carbon Dioxide 24 mmol/L (22-30) 03/09/16 06:57 Anion Gap 8 mmol/L 03/09/16 06:57 BUN 4 mg/dL (7-17) L 03/09/16 06:57 Creatinine 0.68 mg/dL (0.52-1.04) 03/09/16 06:57 Est GFR (MDRD) Af Amer >60 (>60 ml/min/1.73 sqM) 03/09/16 06:57 Est GFR (MDRD) Non-Af >60 (>60 ml/min/1.73 sqM) 03/09/16 06:57 Glucose 86 mg/dL (74-99) 03/09/16 06:57 Calcium 8.9 mg/dL (8.4-10.2) 03/09/16 06:57 Total Bilirubin 0.3 mg/dL (0.2-1.3) 03/08/16 06:42 AST 13 U/L (14-36) L 03/08/16 06:42 ALT 22 U/L (9-52) 03/08/16 06:42 Alkaline Phosphatase 63 U/L (38-126) 03/08/16 06:42 Total Protein 6.0 g/dL (6.3-8.2) L 03/08/16 06:42 Albumin 3.0 g/dL (3.5-5.0) L 03/08/16 06:42 HCG, Qual Not Detected 03/07/16 10:42 Vancomycin Trough 21.7 ug/mL 03/09/16 06:57 Microbiology 03/07/16 14:44 Axilla - Right Gram Stain - Final 03/07/16 14:44 Axilla - Right Wound Culture - Final 03/07/16 15:36 Blood Blood Culture - Preliminary No Growth after 48 hours 03/07/16 14:44 Axilla - Right Anaerobic Culture - Preliminary Assessment and Plan (1) Abscess of right axilla Narrative/Plan: Pleasant 31-year-old woman presents to Hospital with increasing pain and difficulties to the right axillary area. Has a history of prior abscess to the other axilla to require surgical drainage. Because she was not improving at home percentage emergency center and was admitted. She's been seen by surgery as had the incision and drainage and debridement to that area. She'll follow will allow a similar outcome she's had to her left axilla. Sometimes surgical debridements are ideal in persons with her chronic inflammatory skin condition. Likely has MRSA infection and is currently receiving vancomycin therapy. final cultures and prior assessment most like on Bactrim double strength 3 times per day to complete her course of therapy over the next 10-14 days.this is been sent to her pharmacy. Will need to have home care so the axillary abscess site can be packed with the silver rope 3 times per week. She understands importance of adequate protein intake. multivitamin with zinc was requested. Status: Acute (2) Hidradenitis suppurativa Status: Acute (3) Leukocytosis Status: Acute
--- NOTE | 2016-03-12 15:40 | CDI ---
In responding to this query, please exercise your independent professional judgment. The [facility] Coding Staff and Clinical Documentation Specialists appreciate your assistance in clarifying documentation, maintaining compliance with coding guidelines, accurately documenting patients condition and capturing severity of illness. The fact that a question is asked does not imply that any particular answer is desired or expected. Communication forms are a method of clarifying documentation and are not made part of the Legal Health Record. Thank you in advance for your clarification. Last Revision, December 2014 Randolph Lancaster [address] [place] [address] Documentation Clarification Form Date: 03/12/2016 3:34:00 PM From: Janell Barnes Phone: Admit Date: 03/07/2016 1:32:00 PM Patient Name: Zenaida Santos Visit Number: [id number] Discharge Date: 03/12/16 Dr. Jessica Mason Per your operative note, a debridement was performed on pm right axillary abscess. History/Risk Factors: abscesses, axillary hidradenitis, chronic smoking Treatment: I&D with debridement Five elements required for accurate and compliant documentation of a debridement : 1. Technique used (e.g., excisional, excised, cutting, etc.) 2. Instrument(s) used (e.g., scalpel, curette, etc.) 3. Nature of the tissue removed (e.g., necrotic, devitalized tissues, non- viable tissue, etc.) 4. Appearance and size of the wound (e.g., down to fresh bleeding tissue, 7cm x 10cm, etc.) 5. Depth of the debridement* (e.g., skin, subcutaneous tissue, fascia, muscle , bone, etc.) In order to capture the severity of condition and code the appropriate procedure could you please document the following: Excisional debridement (the removal of necrotic, devitalized tissue or slough by means of cutting away of tissue) Non-excisional debridement (the removal of necrotic, devitalized tissue or slough by means of flushing, brushing, or washing. (Irrigation) Other; with explanation for clinical findings Unable to determine (no explanation for clinical findings) Please document in your operative note or progress notes or discharge summary in order to capture severity of illness and risk of mortality. Include clinical findings that support your diagnosis. FYI: Press F11 to launch patient chart. KENISHA Toussaint, CCS, [facility] Certified [employer] Military Technology Manager/Residential Recycle Driver Military Technology Manager II [place]
--- NOTE | 2016-03-27 08:35 | DS ---
DATE OF ADMISSION: 03/07/2016 DATE OF DISCHARGE: 03/09/2016 DATE OF SERVICE: 03/09/2016 Patient was admitted with right axillary abscess. The patient was diagnosed with Hidradenitis suppurativa. Patient is being discharged on Bactrim. Follow up with Surgery. Follow up with Dr. Guaman as an outpatient. Follow up with primary care physician in one week. Activity as tolerated. Regular diet. Patient was counseled regarding nicotine abuse.
== END 2016-03-09 20:01 | disposition home health service (06) | DRG 872 ==
LOC: EC 09:33 → 2ORMAIN 13:32 → 3SUR 17:21
PROVIDERS: ADMIT Hospitalist; ATTEND Hospitalist
PROC: 0X940ZZ Drainage of Right Axilla, Open Approach (ICD-10-PCS; principal; 2016-03-07 11:25)
DX: A41.9 Sepsis, unspecified organism (principal); L02.411 Cutaneous abscess of right axilla; L73.2 Hidradenitis suppurativa; G89.29 Other chronic pain; F41.9 Anxiety disorder, unspecified; F17.210 Nicotine dependence, cigarettes, uncomplicated; Z86.14 Personal history of Methicillin resistant Staphylococcus aureus infection; Z79.899 Other long term (current) drug therapy
CPT/HCPCS: 36415; 80048; 80053; 80202; 81025; 84703; 85025; 85027; 85610; 85730; 87040; 87070; 87075; 87205; 96361; 96365; 96366; 96375; 96376; 99284

== ENCOUNTER 2017-09-06 08:24 | Emergency (ER) | payer SELFPAY ==
[2017-09-06 08:30] VITALS: RESP 16
--- NOTE | 2017-09-06 08:48 | ED ---
General Adult HPI - General Chief complaint: Skin/Abscess/Foreign Body Stated complaint: lump in breast Time Seen by Provider: 09/06/17 08:37 Source: patient, RN notes reviewed Mode of arrival: ambulatory Limitations: no limitations - History of Present Illness Initial comments: Patient 32-year-old female with significant past medical history for hidradenitis suppurativa, presenting to the emergency room today with a chief complaint of a lump to the right breast just above the nipple. Patient does admit that it is red. States it has become more tender over the last 3-4 days after noticing this. Patient denies any other complaints or symptoms. Patient denies any recent fever, chills, shortness of breath, chest pain, back pain, abdominal pain, nausea or vomiting, numbness or tingling, headaches or visual changes, or any other complaints. - Related Data Previous Rx's Medication Instructions Recorded Sulfamethox-Tmp 800-160Mg [Bactrim 1 tab PO Q12HR #20 tab 09/06/17 DS 800-160 mg] Allergies Allergy/AdvReac Type Severity Reaction Status Date / Time No Known Allergies Allergy Verified 09/06/17 08:54 Review of Systems ROS Statement: Those systems with pertinent positive or pertinent negative responses have been documented in the HPI. ROS Other: All systems not noted in ROS Statement are negative. Past Medical History Past Medical History: Skin Disorder, Syncope Additional Past Medical History / Comment(s): 03-07-16 RT AXILLARY ABCESS. Pt admitted to [facility] ER with abscess in L armpit. Pt has had extensive surgery in the past for this abscess but it has come back. Pt was on clindamycin about 2 weeks ago. She is admitted with hidadenitis suppurativa. Other HX: L/R axillae hidradenitis with ABX and surgical txs, syncopy, UTI, chronic pain. History of Any Multi-Drug Resistant Organisms: MRSA Date of last positivie culture/infection: 12/23/2014 MDRO Source:: left axilla Past Surgical History: Section Additional Past Surgical History / Comment(s): R axillary abscess (hidradenitis suppuriativa) removal, L axillary abscess (hidradenitis suppurativa) surgery- large excision with wound vac, sweat glands removed.03-07-16 I&D RT AXILLARY ABCESS. Past Anesthesia/Blood Transfusion Reactions: No Reported Reaction Additional Past Anesthesia/Blood Transfusion Reaction / Comment(s): Pt received blood without reaction after 1st childbirth. Past Psychological History: Anxiety Smoking Status: Current every day smoker Past Alcohol Use History: Occasional Past Drug Use History: None Reported - Past Family History Father Family Medical History: No Reported History Additional Family Medical History / Comment(s): Father is healthy Mother Family Medical History: No Reported History Additional Family Medical History / Comment(s): Mother is healthy General Exam - General Exam Comments Initial Comments: General: The patient is awake and alert, in no distress, and does not appear acutely ill. Eye: Pupils are equal, round and reactive to light, extra-ocular movements are intact. No nystagmus. There is normal conjunctiva bilaterally. No signs of icterus. Ears, nose, mouth and throat: There are moist mucous membranes and no oral lesions. Neck: The neck is supple, there is no tenderness or JVD. Musculoskeletal: Normal ROM, no tenderness. Strength 5/5. Sensation intact. Pulses equal bilaterally 2+. Neurological: A&O x 3. CN II-XII intact, There are no obvious motor or sensory deficits. Coordination appears grossly intact. Speech is normal. Skin: Skin is warm and dry and no rashes or lesions are noted. Psychiatric: Cooperative, appropriate mood & affect, normal judgment. : WASTE REMOVALISTHOA Ortiz present for exam. Patient does have an area just above the right nipple at the 11 o'clock position measures approximately 1-2 cm across. Mild redness. No fluctuant area. Limitations: no limitations Course Vital Signs 09/06/17 08:25 Temperature 98.8 F Pulse Rate 98 Respiratory 16 Rate Blood Pressure 107/68 O2 Sat by Pulse 100 Oximetry Medical Decision Making - Medical Decision Making Patient's ultrasound reviewed and does show a possible abscess measuring 2 x 2 centimeters at 1 o'clock position. At 4 o'clock position possible benign cystic lesion. Results were discussed with the patient in detail. At this time there is no fluctuant area to the abscess. Patient states she would like to follow up with her surgeon for possible drainage. Patient will be started on antibiotic advised warm compresses to the area. Patient is advised to return here to the emergency room symptoms increase worsen or follow-up surgeon. Also discussed about possible benign cystic lesion at the 4 o'clock position advised to follow-up with either surgeon or family physician for further evaluation. Disposition Clinical Impression: Breast abscess, Breast lesion Disposition: HOME SELF-CARE Condition: Good Instructions: Abscess (ED) Additional Instructions: Please use medication as discussed. Please follow-up with surgeon/family doctor in the next 2 days. Please return to emergency room if the symptoms increase or worsen or for any other concerns. Prescriptions: Sulfamethox-Tmp 800-160Mg [Bactrim DS 800-160 mg] 1 tab PO Q12HR #20 tab Is patient prescribed a controlled substance at d/c from ED?: No Referrals: Karolyn Richardson MD [Primary Care Provider] - 1-2 days Kathi iTnoco MD [STAFF PHYSICIAN] - 1-2 days Time of Disposition: 10:56
--- NOTE | 2017-09-06 10:07 | USB ---
Reason for exam: clinical finding. US Breast Limited RT Right limited breast ultrasound including focal area of concern, retroareolar and axilla demonstrates a 2.2 x 0.9 x 1.8cm hypoechoic, vascular lesion at 1 o'clock , appears as a complex phlegmenous fluid collection, likely abscess with peripheral and internal vascularity with overlying skin thickening and a 0.7 x 0.5 x 0.7cm cystic, benign lesion at 4 o'clock. Reassessment with ultrasound is recommended after therapy in 2-3 weeks. These results were verbally communicated with the patient and result sheet given to the patient on 09/06/17. ASSESSMENT: Probably benign, BI-RAD 3 RECOMMENDATION: Ultrasound of the right breast in 1 month. (2-3 weeks after therapy unless worsening, then sooner) [facility]
[2017-09-06 11:03] VITALS: BP 115/68; PULSE 78; TEMP 97.8
== END 2017-09-06 11:02 | disposition home or self-care (01) ==
LOC: EC 08:24
DX: N61.1 Abscess of the breast and nipple (principal); N64.89 Other specified disorders of breast; F17.200 Nicotine dependence, unspecified, uncomplicated; Z86.14 Personal history of Methicillin resistant Staphylococcus aureus infection
CPT/HCPCS: 99283

== ENCOUNTER 2019-05-08 16:48 | Emergency (ER) | payer OTHER ==
[2019-05-08] MEDS ORDERED: SODIUM CHLORIDE 0.9% 1,000 ML IV STA (17:10)
[2019-05-08] MEDS ORDERED: ONDANSETRON 4 MG/2 ML VIAL IVP STA ×2 (17:10→19:33)
--- NOTE | 2019-05-08 17:16 | ED ---
General Adult HPI - General Chief complaint: Nausea/Vomiting/Diarrhea Stated complaint: Abdominal pain Time Seen by Provider: 05/08/19 17:06 Source: patient, RN notes reviewed, old records reviewed Mode of arrival: ambulatory Limitations: no limitations - History of Present Illness Initial comments: 34-year-old female presented for evaluation of nausea vomiting and diarrhea. Symptoms have progressed over the past 24 hours. Began as vomiting, she had several episodes of nonbloody nonbilious vomiting which has progressed to nausea and diarrhea. She's had several episodes of diarrhea over the past few hours. Her vomiting has seemed to improve. She denies fever or chills. She denies significant abdominal pain. She has some mild crampy abdominal pain. No chest pain or dyspnea. No dysuria or hematuria. - Related Data Previous Rx's Medication Instructions Recorded Sulfamethox-Tmp 800-160Mg [Bactrim 1 tab PO Q12HR #20 tab 09/06/17 DS 800-160 mg] Allergies Allergy/AdvReac Type Severity Reaction Status Date / Time No Known Allergies Allergy Verified 05/08/19 16:50 Review of Systems ROS Statement: Those systems with pertinent positive or pertinent negative responses have been documented in the HPI. ROS Other: All systems not noted in ROS Statement are negative. Past Medical History Past Medical History: Skin Disorder, Syncope Additional Past Medical History / Comment(s): 03-07-16 RT AXILLARY ABCESS.02/03/15 Pt admitted to [facility] ER with abscess in L armpit. Pt has had extensive surgery in the past for this abscess but it has come back. Pt was on clindamycin about 2 weeks ago. She is admitted with hidadenitis suppurativa. Other HX: L/R axillae hidradenitis with ABX and surgical txs, syncopy, UTI, chronic pain. History of Any Multi-Drug Resistant Organisms: MRSA Date of last positivie culture/infection: 12/23/2014 MDRO Source:: left axilla Past Surgical History: Section Additional Past Surgical History / Comment(s): R axillary abscess (hidradenitis suppuriativa) removal, L axillary abscess (hidradenitis suppurativa) surgery- large excision with wound vac, sweat glands removed.03-07-16 I&D RT AXILLARY ABCESS. Past Anesthesia/Blood Transfusion Reactions: No Reported Reaction Additional Past Anesthesia/Blood Transfusion Reaction / Comment(s): Pt received blood without reaction after 1st childbirth. Past Psychological History: Anxiety Smoking Status: Current every day smoker Past Alcohol Use History: Occasional Past Drug Use History: None Reported - Past Family History Father Family Medical History: No Reported History Additional Family Medical History / Comment(s): Father is healthy Mother Family Medical History: No Reported History Additional Family Medical History / Comment(s): Mother is healthy General Exam Limitations: no limitations General appearance: alert, in no apparent distress Head exam: Present: atraumatic, normocephalic Eye exam: Present: normal appearance, PERRL ENT exam: Present: normal exam, mucous membranes moist Neck exam: Present: normal inspection. Absent: tenderness, meningismus Respiratory exam: Present: normal lung sounds bilaterally. Absent: respiratory distress, wheezes Cardiovascular Exam: Present: regular rate, normal rhythm GI/Abdominal exam: Present: soft. Absent: distended, tenderness, guarding Extremities exam: Present: normal inspection, normal capillary refill. Absent: pedal edema, calf tenderness Back exam: Present: normal inspection Neurological exam: Present: alert, oriented X3, CN II-XII intact. Absent: motor sensory deficit Psychiatric exam: Present: normal affect, normal mood Skin exam: Present: warm, dry, intact. Absent: cyanosis, diaphoretic Course Vital Signs 05/08/19 05/08/19 05/08/19 16:50 16:52 17:52 Temperature 98.6 F Pulse Rate 84 80 Respiratory 16 20 20 Rate Blood Pressure 121/77 122/75 O2 Sat by Pulse 100 100 Oximetry Medical Decision Making - Medical Decision Making 34-year-old female with nausea vomiting diarrhea. No focal tenderness on exam. Stable vitals. Patient has normal CBC, normal CMP, urinalysis negative for infection, negative for ketosis. Patient's given symptom control, Zofran, morphine, IV fluids. On reevaluation she is feeling much better. She is not driving, she has a ride. Vitals are repeated and they're stable. She has no abdominal pain. She will return with worsening or changing symptoms. - Lab Data Result diagrams: 05/08/19 17:27 05/08/19 17:27 Lab Results 05/08/19 05/08/19 05/08/19 Range/Units 17:27 17:27 17:31 WBC 7.7 (3.8-10.6) k/uL RBC 4.32 (3.80-5.40) m/uL Hgb 11.9 (11.4-16.0) gm/dL Hct 37.6 (34.0-46.0) % MCV 87.1 (80.0-100.0) fL MCH 27.6 (25.0-35.0) pg MCHC 31.7 (31.0-37.0) g/dL RDW 13.2 (11.5-15.5) % Plt Count 298 (150-450) k/uL Neutrophils % 70 % Lymphocytes % 24 % Monocytes % 2 % Eosinophils % 2 % Basophils % 0 % Neutrophils # 5.4 (1.3-7.7) k/uL Lymphocytes # 1.8 (1.0-4.8) k/uL Monocytes # 0.2 (0-1.0) k/uL Eosinophils # 0.2 (0-0.7) k/uL Basophils # 0.0 (0-0.2) k/uL Sodium 135 L (137-145) mmol/L Potassium 3.7 (3.5-5.1) mmol/L Chloride 103 (98-107) mmol/L Carbon Dioxide 28 (22-30) mmol/L Anion Gap 4 mmol/L BUN 7 (7-17) mg/dL Creatinine 0.66 (0.52-1.04) mg/dL Est GFR (CKD-EPI)AfAm >90 (>60 ml/min/1.73 sqM) Est GFR (CKD-EPI)NonAf >90 (>60 ml/min/1.73 sqM) Glucose 94 (74-99) mg/dL Calcium 9.1 (8.4-10.2) mg/dL Total Bilirubin 0.3 (0.2-1.3) mg/dL AST 23 (14-36) U/L ALT 11 (4-34) U/L Alkaline Phosphatase 77 (38-126) U/L Total Protein 7.2 (6.3-8.2) g/dL Albumin 3.9 (3.5-5.0) g/dL Lipase 96 (23-300) U/L Urine Color Yellow Urine Appearance Cloudy H (Clear) Urine pH 6.0 (5.0-8.0) Ur Specific [place] 1.020 (1.001-1.035) Urine Protein Negative (Negative) Urine Glucose (UA) Negative (Negative) Urine Ketones Negative (Negative) Urine Blood Negative (Negative) Urine Nitrite Negative (Negative) Urine Bilirubin Negative (Negative) Urine Urobilinogen <2.0 (<2.0) mg/dL Ur Leukocyte Esterase Small H (Negative) Urine RBC 2 (0-5) /hpf Urine WBC 9 H (0-5) /hpf Ur Squamous Epith Cells 3 (0-4) /hpf Amorphous Sediment Rare H (None) /hpf Urine Bacteria Many H (None) /hpf Hyaline Casts 6 H (0-2) /lpf Urine Mucus Occasional H (None) /hpf Urine HCG, Qual (Not Detectd) 05/08/19 Range/Units 17:31 WBC (3.8-10.6) k/uL RBC (3.80-5.40) m/uL Hgb (11.4-16.0) gm/dL Hct (34.0-46.0) % MCV (80.0-100.0) fL MCH (25.0-35.0) pg MCHC (31.0-37.0) g/dL RDW (11.5-15.5) % Plt Count (150-450) k/uL Neutrophils % % Lymphocytes % % Monocytes % % Eosinophils % % Basophils % % Neutrophils # (1.3-7.7) k/uL Lymphocytes # (1.0-4.8) k/uL Monocytes # (0-1.0) k/uL Eosinophils # (0-0.7) k/uL Basophils # (0-0.2) k/uL Sodium (137-145) mmol/L Potassium (3.5-5.1) mmol/L Chloride (98-107) mmol/L Carbon Dioxide (22-30) mmol/L Anion Gap mmol/L BUN (7-17) mg/dL Creatinine (0.52-1.04) mg/dL Est GFR (CKD-EPI)AfAm (>60 ml/min/1.73 sqM) Est GFR (CKD-EPI)NonAf (>60 ml/min/1.73 sqM) Glucose (74-99) mg/dL Calcium (8.4-10.2) mg/dL Total Bilirubin (0.2-1.3) mg/dL AST (14-36) U/L ALT (4-34) U/L Alkaline Phosphatase (38-126) U/L Total Protein (6.3-8.2) g/dL Albumin (3.5-5.0) g/dL Lipase (23-300) U/L Urine Color Urine Appearance (Clear) Urine pH (5.0-8.0) Ur Specific [place] (1.001-1.035) Urine Protein (Negative) Urine Glucose (UA) (Negative) Urine Ketones (Negative) Urine Blood (Negative) Urine Nitrite (Negative) Urine Bilirubin (Negative) Urine Urobilinogen (<2.0) mg/dL Ur Leukocyte Esterase (Negative) Urine RBC (0-5) /hpf Urine WBC (0-5) /hpf Ur Squamous Epith Cells (0-4) /hpf Amorphous Sediment (None) /hpf Urine Bacteria (None) /hpf Hyaline Casts (0-2) /lpf Urine Mucus (None) /hpf Urine HCG, Qual Not Detected (Not Detectd) Disposition Clinical Impression: Nausea vomiting and diarrhea Disposition: HOME SELF-CARE Condition: Fair Instructions (If sedation given, give patient instructions): Acute Nausea and Vomiting (ED), Acute Diarrhea (ED) Is patient prescribed a controlled substance at d/c from ED?: No Referrals: Karolyn Richardson MD [Primary Care Provider] - 1-2 days Time of Disposition: 18:45
[2019-05-08] MEDS ORDERED: MORPHINE SULFATE 4 MG/ML SYRINGE IVP STA (17:37)
[2019-05-08 17:46] LABS: Basophils % (A) 0 %; Eosinophils # (A) 0.2 k/uL (0-0.7); Eosinophils % (A) 2 %; HCT 37.6 % (34.0-46.0); HGB 11.9 gm/dL (11.4-16.0); Lymphocytes # (A) 1.8 k/uL (1.0-4.8); Lymphocytes % (A) 24 %; MCH 27.6 pg (25.0-35.0); MCHC 31.7 g/dL (31.0-37.0); MCV 87.1 fL (80.0-100.0); Mean Platelet Volume 7.3; Monocytes # (A) 0.2 k/uL (0-1.0); Monocytes % (A) 2 %; Neutrophils # (A) 5.4 k/uL (1.3-7.7); Neutrophils % (A) 70 %; Platelet Count 298 k/uL (150-450); RBC 4.32 m/uL (3.80-5.40); RDW 13.2 % (11.5-15.5); WBC 7.7 k/uL (3.8-10.6)
[2019-05-08 17:53] LABS: ALT 11 U/L (4-34); AST 23 U/L (14-36); African American GFR (CKD) >90 (>60 ml/min/1.73 sqM); Albumin 3.9 g/dL (3.5-5.0); Alkaline Phosphatase 77 U/L (38-126); Anion Gap 4 mmol/L; Blood Urea Nitrogen 7 mg/dL (7-17); Calcium 9.1 mg/dL (8.4-10.2); Carbon Dioxide 28 mmol/L (22-30); Chloride 103 mmol/L (98-107); Glucose 94 mg/dL (74-99); Non-African American GFR(CKD) >90 (>60 ml/min/1.73 sqM); Potassium 3.7 mmol/L (3.5-5.1); Sodium 135 mmol/L (137-145); Total Bilirubin 0.3 mg/dL (0.2-1.3); Total Protein 7.2 g/dL (6.3-8.2)
[2019-05-08 18:14] LABS: Amorphous Sediment,Urine Rare /hpf; Appearance,Urine Cloudy (Clear); Bacteria,Urine Many /hpf; Bilirubin,Urine Negative (Negative); Blood,Urine Negative (Negative); Color,Urine Yellow; Glucose,Urine (UA) Negative (Negative); Hyaline Casts,Urine 6 /lpf (0-2); Ketones,Urine Negative (Negative); Leukocyte Esterase,Urine Small (Negative); Mucus,Urine Occasional /hpf; Nitrite,Urine Negative (Negative); Protein,Urine Negative (Negative); RBC,Urine 2 /hpf (0-5); Squamous Epithelial Cell,Urine 3 /hpf (0-4); Urobilinogen,Urine <2.0 mg/dL (<2.0); WBC,Urine 9 /hpf (0-5)
[2019-05-08 19:42] VITALS: BP 108/68; PULSE 70; RESP 16; TEMP 98.1
== END 2019-05-08 19:42 | disposition home or self-care (01) ==
LOC: EC 16:48
DX: R11.2 Nausea with vomiting, unspecified (principal); R19.7 Diarrhea, unspecified; R10.9 Unspecified abdominal pain; F17.200 Nicotine dependence, unspecified, uncomplicated
CPT/HCPCS: 36415; 80053; 83690; 85025; 81001; 81025; 99284; 96374; 96375; 96376; 96361 ×2; J2270; J2405

== ENCOUNTER 2020-08-24 21:27 | Inpatient (IN) | payer OTHER ==
--- NOTE | 2020-08-24 21:56 | ED ---
SOB HPI - General Chief Complaint: Shortness of Breath Stated Complaint: SOB Time Seen by Provider: 08/24/20 21:55 Source: patient Mode of arrival: ambulatory Limitations: no limitations - History of Present Illness Initial Comments: This patient is a 35-year-old woman who presents with pain to the right sided chest and upper back as well as shoulder that had started last night. She states that the pain as a sharp sensation, worse with taking a deep breath or coughing. She has not had fever or chills. No productive cough. She feels like she can't take a deep breath but she is not short of breath at rest. MD Complaint: shortness of breath, cough, pain with inspiration Onset/Timin -: days(s) Radiation: back Severity: severe Quality: sharp Consistency: constant Improves With: nothing Worsens With: coughing, inspiration Associated Symptoms: denies other symptoms Treatments Prior to Arrival: none - Related Data Previous Rx's Medication Instructions Recorded Sulfamethox-Tmp 800-160Mg [Bactrim 1 tab PO Q12HR #20 tab 09/06/17 DS 800-160 mg] Ondansetron Odt [Zofran Odt] 4 mg PO Q8HR PRN #10 tab 05/08/19 Allergies Allergy/AdvReac Type Severity Reaction Status Date / Time No Known Allergies Allergy Verified 08/24/20 21:43 Review of Systems ROS Statement: Those systems with pertinent positive or pertinent negative responses have been documented in the HPI. ROS Other: All systems not noted in ROS Statement are negative. Constitutional: Denies: fever, chills Respiratory: Reports: as per HPI, cough. Denies: dyspnea, wheezes, hemoptysis Cardiovascular: Reports: as per HPI, chest pain. Denies: palpitations, orthopnea, edema, syncope Gastrointestinal: Denies: abdominal pain, nausea, vomiting, diarrhea Genitourinary: Denies: dysuria, hematuria Musculoskeletal: Denies: back pain Skin: Denies: rash Neurological: Denies: headache, weakness, numbness Hematological/Lymphatic: Denies: easy bleeding Past Medical History Past Medical History: Skin Disorder, Syncope Additional Past Medical History / Comment(s): 03-07-16 RT AXILLARY ABCESS.02/03/15 Pt admitted to [facility] ER with abscess in L armpit. Pt has had extensive surgery in the past for this abscess but it has come back. Pt was on clindamycin about 2 weeks ago. She is admitted with hidadenitis suppurativa. Other HX: L/R axillae hidradenitis with ABX and surgical txs, syncopy, UTI, chronic pain. History of Any Multi-Drug Resistant Organisms: MRSA Date of last positivie culture/infection: 12/23/2014 MDRO Source:: left axilla Past Surgical History: Section Additional Past Surgical History / Comment(s): R axillary abscess (hidradenitis suppuriativa) removal, L axillary abscess (hidradenitis suppurativa) surgery- large excision with wound vac, sweat glands removed.03-07-16 I&D RT AXILLARY ABCESS. Past Anesthesia/Blood Transfusion Reactions: No Reported Reaction Additional Past Anesthesia/Blood Transfusion Reaction / Comment(s): Pt received blood without reaction after 1st childbirth. Past Psychological History: Anxiety Smoking Status: Current every day smoker Past Alcohol Use History: Occasional Past Drug Use History: None Reported - Past Family History Father Family Medical History: No Reported History Additional Family Medical History / Comment(s): Father is healthy Mother Family Medical History: No Reported History Additional Family Medical History / Comment(s): Mother is healthy General Exam Limitations: no limitations General appearance: alert, in no apparent distress Head exam: Present: atraumatic, normocephalic Eye exam: Present: normal appearance. Absent: scleral icterus, conjunctival injection Neck exam: Present: normal inspection, full ROM Respiratory exam: Present: decreased breath sounds (Right-sided). Absent: respiratory distress, wheezes, rales, rhonchi, chest wall tenderness, accessory muscle use Cardiovascular Exam: Present: regular rate, normal rhythm, normal heart sounds. Absent: systolic murmur, diastolic murmur, rubs, gallop GI/Abdominal exam: Present: soft. Absent: distended, tenderness, guarding, rebound, rigid, mass Extremities exam: Present: normal inspection, normal capillary refill. Absent: pedal edema, calf tenderness Back exam: Present: normal inspection. Absent: CVA tenderness (R), CVA tenderness (L) Neurological exam: Present: alert Skin exam: Present: warm, dry, intact, normal color. Absent: rash Course Vital Signs 08/24/20 08/24/20 08/24/20 21:43 23:01 23:35 Temperature 98.0 F Pulse Rate 95 68 Respiratory 20 20 20 Rate Blood Pressure 116/84 137/95 O2 Sat by Pulse 100 100 Oximetry 08/25/20 08/25/20 08/25/20 00:00 00:38 02:31 Temperature Pulse Rate 86 101 H 86 Respiratory 18 18 22 Rate Blood Pressure 113/69 124/81 139/91 O2 Sat by Pulse 100 100 95 Oximetry 08/25/20 02:36 Temperature Pulse Rate 79 Respiratory 22 Rate Blood Pressure 139/91 O2 Sat by Pulse 95 Oximetry Procedures - Chest Tube Insertion Consent Obtained: verbal consent Side of Procedure: right Indication: Pneumothorax Placed on monitor/pulse oximetry: Yes Site Prep: Chloroprep Local Anesthesia: Lidocaine 1% Insertion Site: Other (Anterior approach) Scalpel: #10 Open into Pleural Space Using: Trocar Tube Size (Greenlandic): Other (11) Returns: Air Sutured in Place: No (Self- adhesive dressing) Attached to Suction: Yes Repeat X-ray Results: Lung Inflated Patient Tolerated Procedure: well, no complications - Procedural Sedation Indications: other (Thoravent tube) ASA Class: I Mallampati Airway Score: 2 Preparation: cardiac cath lab technologist applied, pulse oximeter, supplemental O2 applied, suction/airway equipment at bedside, IV secured Complications: none Patient Tolerated Procedure: well, no complications Medical Decision Making - Medical Decision Making Patient is a 35-year-old woman presenting with right-sided thoracic pain and found to have what appears to be spontaneous pneumothorax at probably had de veloped day previous. Discussed risks, benefits, indications and patient did give consent for the tube thoracostomy. This was placed without complication, see the note. Case discussed with Dr. Dominguez. Case is discussed with admitting physician group. Case discussed with Verna from CT surgery - Lab Data Result diagrams: 08/24/20 23:33 08/24/20 23:33 Lab Results 08/24/20 08/24/20 08/24/20 Range/Units 22:42 23:33 23:33 WBC 8.3 (3.8-10.6) k/uL RBC 4.18 (3.80-5.40) m/uL Hgb 12.2 (11.4-16.0) gm/dL Hct 36.3 (34.0-46.0) % MCV 86.7 (80.0-100.0) fL MCH 29.3 (25.0-35.0) pg MCHC 33.8 (31.0-37.0) g/dL RDW 13.0 (11.5-15.5) % Plt Count 256 (150-450) k/uL MPV 7.1 Neutrophils % 51 % Lymphocytes % 41 % Monocytes % 3 % Eosinophils % 3 % Basophils % 0 % Neutrophils # 4.2 (1.3-7.7) k/uL Lymphocytes # 3.4 (1.0-4.8) k/uL Monocytes # 0.3 (0-1.0) k/uL Eosinophils # 0.2 (0-0.7) k/uL Basophils # 0.0 (0-0.2) k/uL Sodium 139 (137-145) mmol/L Potassium 3.9 (3.5-5.1) mmol/L Chloride 107 (98-107) mmol/L Carbon Dioxide 26 (22-30) mmol/L Anion Gap 6 mmol/L BUN 11 (7-17) mg/dL Creatinine 0.66 (0.52-1.04) mg/dL Est GFR (CKD-EPI)AfAm >90 (>60 ml/min/1.73 sqM) Est GFR (CKD-EPI)NonAf >90 (>60 ml/min/1.73 sqM) Glucose 83 (74-99) mg/dL Calcium 9.4 (8.4-10.2) mg/dL Coronavirus (PCR) Not Detected (Not Detectd) - EKG Data -: EKG Interpreted by Me EKG shows normal: sinus rhythm, axis (Normal), intervals (Normal), QRS complexes (Normal), ST-T waves (Normal) Rate: normal Interpretation: normal EKG Disposition Clinical Impression: Pneumothorax Disposition: ADMITTED IP TO THIS HOSP Condition: Fair
--- NOTE | 2020-08-24 23:02 | XR ---
EXAMINATION TYPE: XR chest 2V DATE OF EXAM: 08/24/2020 COMPARISON: NONE HISTORY: Short of breath TECHNIQUE: 2 view FINDINGS: There is a large right-sided pneumothorax. Trachea is midline. Pneumothorax is more than 90 %. The left lung is clear. Bony thorax is intact. IMPRESSION: Large right-sided pneumothorax. No tension seen. Normal heart. This exam was discussed with Dr. Aranda at 11:00 PM
[2020-08-24] MEDS ORDERED: SODIUM CHLORIDE 0.9% 500 ML 500 ML IV STA (23:21)
[2020-08-24] MEDS ORDERED: MORPHINE SULFATE 4 MG/ML SYRINGE IV STA (23:21)
[2020-08-24 23:46] LABS: Basophils % (A) 0 %; Eosinophils # (A) 0.2 k/uL (0-0.7); Eosinophils % (A) 3 %; HCT 36.3 % (34.0-46.0); HGB 12.2 gm/dL (11.4-16.0); Lymphocytes # (A) 3.4 k/uL (1.0-4.8); Lymphocytes % (A) 41 %; MCH 29.3 pg (25.0-35.0); MCHC 33.8 g/dL (31.0-37.0); MCV 86.7 fL (80.0-100.0); Mean Platelet Volume 7.1; Monocytes # (A) 0.3 k/uL (0-1.0); Monocytes % (A) 3 %; Neutrophils # (A) 4.2 k/uL (1.3-7.7); Neutrophils % (A) 51 %; Platelet Count 256 k/uL (150-450); RBC 4.18 m/uL (3.80-5.40); WBC 8.3 k/uL (3.8-10.6)
[2020-08-24 23:58] LABS: African American GFR (CKD) >90 (>60 ml/min/1.73 sqM); Anion Gap 6 mmol/L; Blood Urea Nitrogen 11 mg/dL (7-17); Calcium 9.4 mg/dL (8.4-10.2); Carbon Dioxide 26 mmol/L (22-30); Chloride 107 mmol/L (98-107); Glucose 83 mg/dL (74-99); Non-African American GFR(CKD) >90 (>60 ml/min/1.73 sqM); Potassium 3.9 mmol/L (3.5-5.1); Sodium 139 mmol/L (137-145)
[2020-08-25] MEDS ORDERED: LIDOCAINE 1% INJ 10MG/ML (20 ML MDV) SQ ONE (00:07)
[2020-08-25] MEDS ORDERED: MORPHINE SULFATE 4 MG/ML SYRINGE IV STA (00:07)
[2020-08-25] MEDS ORDERED: LORazepam 2 MG/ML INJ IV STA (00:07)
[2020-08-25] MEDS ORDERED: HYDROmorphone 0.5 MG/0.5 ML SYRINGE IVP STA ×2 (00:51→02:01)
[2020-08-25] MEDS ORDERED: MAG HYDROX/AL HYDROX/SIMETH 30 ML CUP PO PRN (01:28)
[2020-08-25] MEDS ORDERED: ONDANSETRON 4 MG/2 ML VIAL IVP PRN (01:28)
[2020-08-25] MEDS ORDERED: NALOXONE 0.4 MG/ML 1 ML VIAL IV PRN (01:28)
--- NOTE | 2020-08-25 01:39 | XR ---
EXAMINATION TYPE: XR chest 1V portable DATE OF EXAM: 08/25/2020 COMPARISON: 08/24/2020 HISTORY: Chest tube TECHNIQUE: Single view FINDINGS: There is right-sided chest tube. There is a small right apical pneumothorax of approximatel y 15%. There is some atelectasis right lung base. The left lung is clear. Heart and mediastinum are n ormal. IMPRESSION: There is significant improvement in the right side pneumothorax. Normal heart. Mild to mo derate atelectasis at the right lung base.
[2020-08-25] MEDS: SODIUM CHLORIDE 0.9% 1,000 ML IV SCH ×3 (02:18→21:00)
[2020-08-25] MEDS: MORPHINE SULFATE 4 MG/ML SYRINGE IV PRN ×4 (02:22→22:47)
[2020-08-25] MEDS: HYDROmorphone 0.5 MG/0.5 ML SYRINGE IVP PRN ×2 (04:14→10:12)
[2020-08-25] MEDS: KETOROLAC 15 MG/ML 1 ML VIAL IVP SCH ×4 (07:26→23:47)
--- NOTE | 2020-08-25 07:31 | XR ---
EXAMINATION TYPE: XR chest 1V portable DATE OF EXAM: 08/25/2020 COMPARISON: 08/25/2020 HISTORY: History of pneumothorax TECHNIQUE: Single frontal view of the chest is obtained. FINDINGS: Low lung volumes. Heart size is within normal limits. No mediastinal shift. There is a smal l right pneumothorax at the right lung apex measuring up to 1.1 cm. This is similar to prior exam. Th ere is a chest tube seen at the right upper lung. Right basilar atelectasis. The left lung is clear. IMPRESSION: 1. Findings are relatively stable with right sided pneumothorax with chest tube. Right basilar atelec tasis. No mediastinal shift.
[2020-08-25 08:12] LABS: HCT 35.4 % (34.0-46.0); HGB 11.8 gm/dL (11.4-16.0); MCH 29.2 pg (25.0-35.0); MCHC 33.3 g/dL (31.0-37.0); MCV 87.5 fL (80.0-100.0); Mean Platelet Volume 7.3; Platelet Count 227 k/uL (150-450); RBC 4.05 m/uL (3.80-5.40); RDW 13.1 % (11.5-15.5); WBC 16.9 k/uL (3.8-10.6)
[2020-08-25 08:23] LABS: African American GFR (CKD) >90 (>60 ml/min/1.73 sqM); Anion Gap 4 mmol/L; Blood Urea Nitrogen 7 mg/dL (7-17); Calcium 9.1 mg/dL (8.4-10.2); Carbon Dioxide 27 mmol/L (22-30); Chloride 106 mmol/L (98-107); Glucose 95 mg/dL (74-99); Non-African American GFR(CKD) >90 (>60 ml/min/1.73 sqM); Potassium 3.6 mmol/L (3.5-5.1); Sodium 137 mmol/L (137-145)
[2020-08-25] MEDS: FAMOTIDINE 20 MG TAB PO SCH ×2 (09:41→19:16)
--- NOTE | 2020-08-25 09:53 | P.GSCN ---
History of Present Illness Consult date: 08/25/20 Reason for Consult: Right-sided spontaneous pneumothorax status post thoravent placement Requesting physician: Dayton Faulkner History of present illness: This is a 35-year-old active female who follows on an outpatient basis with Dr. Richardson for primary care. Her previous medical history includes current tobacco dependence and hydadenitis suppurativa with bilateral axillary abscesses. She presented to [facility] with complaints of sudden onset right-sided chest pain and being unable to take a deep breath. She was not doing anything in particular at the time, denies any trauma, denies ever having this happen before. Chest x-ray was obtained demonstrating large right-sided pneumothorax estimated to be about 90% per radiology read. Thoravent was placed by the emergency room physician with almost complete reexpansion of the right sided pneumothorax. The patient was admitted for evaluation and continued treatment with consultation placed to pulmonology and cardiothoracic services. Review of Systems Review of systems was completed and was negative except as noted - Cardiovascular Cardiovascular Comment(s): Difficulty taking a deep breath Reports as per HPI, Reports chest pain Past Medical History Past Medical History: Skin Disorder, Syncope Additional Past Medical History / Comment(s): 03-07-16 RT AXILLARY ABCESS.02/03/15 Pt admitted to [facility] ER with abscess in L armpit. Pt has had extensive surgery in the past for this abscess but it has come back. Pt was on clindamycin about 2 weeks ago. She is admitted with hidadenitis suppurativa. Other HX: L/R axillae hidradenitis with ABX and surgical txs, syncopy, UTI, chronic pain. History of Any Multi-Drug Resistant Organisms: MRSA Year Discovered:: 12/23/2014 MDRO Source:: left axilla Past Surgical History: Section Additional Past Surgical History / Comment(s): R axillary abscess (hidradenitis suppuriativa) removal, L axillary abscess (hidradenitis suppurativa) surgery- large excision with wound vac, sweat glands removed.03-07-16 I&D RT AXILLARY ABCE SS. Past Anesthesia/Blood Transfusion Reactions: No Reported Reaction Additional Past Anesthesia/Blood Transfusion Reaction / Comm: Pt received blood without reaction after 1st childbirth. Past Psychological History: Anxiety Smoking Status: Current every day smoker Past Alcohol Use History: Occasional Past Drug Use History: None Reported - Past Family History Father Family Medical History: No Reported History Additional Family Medical History / Comment(s): Father is healthy Mother Family Medical History: No Reported History Additional Family Medical History / Comment(s): Mother is healthy Medications and Allergies Home Medications Medication Instructions Recorded Confirmed Type No Known Home Medications 08/25/20 08/25/20 History Allergies Allergy/AdvReac Type Severity Reaction Status Date / Time No Known Allergies Allergy Verified 08/25/20 07:43 Surgical - Exam Vital Signs Temp Pulse Resp BP Pulse Ox 98.0 F 95 20 116/84 100 08/24/20 21:43 08/24/20 21:43 08/24/20 21:43 08/24/20 21:43 08/24/20 21:43 CONSTITUTIONAL: Awake and alert, appears uncomfortable, cooperative, well- developed, well-nourished, appears to be in pain, no acute distress EYES: Pupils equal, round, reactive to light, normal ocular movement ENT: Moist mucous membranes without oral lesions present NECK: No masses, no bruits, trachea midline RESPIRATORY: Lungs sounds diminished to auscultation bilaterally, right greater than left. Respirations even, nonlabored. Currently on room air with oxygen saturation 93%. Strong cough. No clubbing or cyanosis present. Right-sided thoravent present, connected to wall suction CARDIOVASCULAR: S1, S2 present. Regular rate and rhythm. Palpable peripheral pulses bilaterally. No edema present. No calf pain or tenderness noted. GASTROINTESTINAL: Abdomen soft, nontender, nondistended without masses or org anomegaly noted. There is no rebound or guarding present. Active bowel sounds present 4 quadrants. GENITOURINARY: Deferred INTEGUMENTARY: Skin is warm and dry with evidence of good perfusion. NEUROLOGIC: Cranial nerves II through XII intact, normal coordination, no obvious motor or sensory deficits, speech is normal MUSKULOSKELETAL: Able to move all extremities, strength equal bilaterally, normal posture PSYCHIATRIC: Alert and oriented to person place and time, appropriate affect, intact judgment and insight Results - Labs 08/25/20 07:43 08/25/20 07:43 Diabetes panel 08/24/20 Range/Units 23:33 Sodium 139 (137-145) mmol/L Potassium 3.9 (3.5-5.1) mmol/L Chloride 107 (98-107) mmol/L Carbon Dioxide 26 (22-30) mmol/L BUN 11 (7-17) mg/dL Creatinine 0.66 (0.52-1.04) mg/dL Glucose 83 (74-99) mg/dL Calcium 9.4 (8.4-10.2) mg/dL Calcium panel 08/24/20 Range/Units 23:33 Calcium 9.4 (8.4-10.2) mg/dL Pituitary panel 08/24/20 Range/Units 23:33 Sodium 139 (137-145) mmol/L Potassium 3.9 (3.5-5.1) mmol/L Chloride 107 (98-107) mmol/L Carbon Dioxide 26 (22-30) mmol/L BUN 11 (7-17) mg/dL Creatinine 0.66 (0.52-1.04) mg/dL Glucose 83 (74-99) mg/dL Calcium 9.4 (8.4-10.2) mg/dL Adrenal panel 08/24/20 Range/Units 23:33 Sodium 139 (137-145) mmol/L Potassium 3.9 (3.5-5.1) mmol/L Chloride 107 (98-107) mmol/L Carbon Dioxide 26 (22-30) mmol/L BUN 11 (7-17) mg/dL Creatinine 0.66 (0.52-1.04) mg/dL Glucose 83 (74-99) mg/dL Calcium 9.4 (8.4-10.2) mg/dL - Imaging Chest x-ray: report reviewed, image reviewed EKG: image reviewed Assessment and Plan Assessment: 1. Spontaneous right-sided pneumothorax, first occurrence, status post thoravent placement by the emergency room physicians 2. Current tobacco dependence 3. History of hydadenitis suppurativa with bilateral axillary abscesses Plan: The patient was seen and examined on the medical surgical unit. Chart/diagnostics were reviewed. The case was discussed in detail with Dr. Lee from cardiothoracic surgery. Chest x-rays were reviewed with Dr. Lee. When placing thoravent to atrium with continuous wall suction initial air leak was present, followed by no air leak present. Continue thoravent to continuous wall suction for another 24 hours. Incentive spirometry was ordered and should be encouraged. Smoking cessation was discussed with the patient. Pain control with current medication regimen, Toradol added. Increase activity, ambulate in room, nursing to lengthen suction tubing so patient may ambulate. The usual course of treatment for spontaneous pneumothorax was discussed with the patient, she is at risk for future spontaneous pneumothorax especially if she does not quit smoking. If spontaneous pneumothorax occurs second time for risk for future pneumothoraces increases significantly and we would offer surgical intervention at that time. This was discussed in detail with the patient and she demonstrates understanding. We'll continue to follow daily chest x-rays and make further recommendations. Medical management of other comorbidities per primary care service. Thank you for this consult. Please call us with any questions. Time with Patient: Greater than 30
[2020-08-25] MEDS ORDERED: ALPRAZolam 0.25 MG TAB PO STA (13:23)
--- NOTE | 2020-08-25 16:20 | P.HPIM ---
History of Present Illness H&P Date: 08/25/20 Chief Complaint: Chest tightness Patient is a 35-year-old male with a known history of anxiety, currently rate is no current occasional alcohol use presents to ER with complaints of right-sided chest pain as well as upper back and right shoulder pain worsened last night. Patient says that she has been having sharp pains almost 6 months on and off. Patient did not go to see her primary care physician. Pain gets worse with deep breathing and coughing. Otherwise denied any sputum production. No fever no chills. No recent illnesses. No respiratory infections. No nausea vomiting or abdominal pain or diarrhea. Chest x-ray showed large right-sided pneumothorax. No tension seen. Normal heart. EKG showed normal sinus rhythm Right-sided chest tube was placed in the ER with significant improvement in pneumothorax. Laboratory data reviewed. . Review of Systems Constitutional: Patient denies any fever or chills . No generalized weakness or weight loss. Abdomen: Patient denied nausea vomiting and diarrhea and abdominal pain. Cardiovascular: Patient does have right-sided chest pain and shortness of breath. No palpitations no leg swelling.. Respiratory: patient denied any cough is from production. No shortness of breath Neurologic: Patient denied any numbness or tingling headache. Musculoskeletal: Patient denies any complaints of joint swelling or deformity. Skin: Negative Psychiatric: Negative Endocrine: No heat or cold intolerance. No recent weight gain. Genitourinary: No dysuria or hematuria. All other 14 point ROS negative except the above Past Medical History Past Medical History: Skin Disorder, Syncope Additional Past Medical History / Comment(s): 03-07-16 RT AXILLARY ABCESS.02/03/15 Pt admitted to [facility] ER with abscess in L armpit. Pt has had extensive surgery in the past for this abscess but it has come back. Pt was on clindamycin about 2 weeks ago. She is admitted with hidadenitis suppurativa. Other HX: L/R axillae hidradenitis with ABX and surgical txs, syncopy, UTI, chronic pain. History of Any Multi-Drug Resistant Organisms: MRSA Date of last positivie culture/infection: 12/23/2014 MDRO Source:: left axilla Past Surgical History: Section Additional Past Surgical History / Comment(s): R axillary abscess (hidradenitis suppuriativa) removal, L axillary abscess (hidradenitis suppurativa) surgery- large excision with wound vac, sweat glands removed.03-07-16 I&D RT AXILLARY ABCESS. Past Anesthesia/Blood Transfusion Reactions: No Reported Reaction Additional Past Anesthesia/Blood Transfusion Reaction / Comment(s): Pt received blood without reaction after 1st childbirth. Past Psychological History: Anxiety Smoking Status: Current every day smoker Past Alcohol Use History: Occasional Past Drug Use History: None Reported - Past Family History Father Family Medical History: No Reported History Additional Family Medical History / Comment(s): Father is healthy Mother Family Medical History: No Reported History Additional Family Medical History / Comment(s): Mother is healthy Medications and Allergies Home Medications Medication Instructions Recorded Confirmed Type No Known Home Medications 08/25/20 08/25/20 History Allergies Allergy/AdvReac Type Severity Reaction Status Date / Time No Known Allergies Allergy Verified 08/25/20 07:43 Physical Exam Vitals: Vital Signs Temp Pulse Pulse Resp BP BP Pulse Ox 08/25/20 05:22 98.7 F 97 16 124/77 93 L 08/25/20 03:02 98.2 F 95 16 134/85 100 08/25/20 02:36 79 22 139/91 95 08/25/20 02:31 86 22 139/91 95 08/25/20 00:38 101 H 18 124/81 100 08/25/20 00:00 86 18 113/69 100 08/24/20 23:35 68 20 137/95 100 08/24/20 23:01 20 08/24/20 21:43 98.0 F 95 20 116/84 100 Intake and Output 08/24/20 08/25/20 08/25/20 22:59 06:59 14:59 Intake Total 590 Balance 590 Intake: Oral 590 Other: Voiding Method Toilet Weight 64.864 kg 64.864 kg PHYSICAL EXAMINATION: Patient is lying in the bed comfortably, no acute distress, awake alert and orie nted.. HEENT: Normocephalic. Neck is supple. Pupils reactive. Nostrils clear. Oral cavity is moist. Neck reveals no JVD, carotid bruits, or thyromegaly. CHEST EXAMINATION: Trachea is central. Symmetrical expansion. Right basilar dementia sounds. Lung hi clear to auscultation and percussion. CARDIAC: Normal S1, S2 with no gallops. No murmurs ABDOMEN: Soft. Bowel sounds normal. No organomegaly. No abdominal bruits. Extremities: reveal no edema. No clubbing or cyanosis Neurologically awake, alert, oriented x3 with well-coordinated movements. No focal deficits noted Skin: No rash or skin lesions. Psychiatric: Coperative. Nonsuicidal Musculoskeletal: No joint swelling or deformity. Normal range of motion. Results CBC & Chem 7: 08/25/20 07:43 08/25/20 07:43 Labs: Abnormal Lab Results - Last 24 Hours (Table) 08/25/20 Range/Units 07:43 WBC 16.9 H (3.8-10.6) k/uL Thrombosis Risk Factor Assmnt - DVT/VTE Prophylaxis DVT/VTE Prophylaxis: Pharmacologic Prophylaxis ordered - Choose All That Apply Any of the Below Risk Factors Present?: Yes Each Factor Represents 1 point: Obesity (BMI >25), Serious lung disease incl. pneumonia (< 1month) Other Risk Factors: No Other congenital or acquired thrombophilia - If yes, enter type in comment: No Thrombosis Risk Factor Assessment Total Risk Factor Score: 2 Thrombosis Risk Factor Assessment Level: Low Risk Assessment and Plan Assessment: Spontaneous right-sided pneumothorax status post coronary thoravent placement in the ER. Ongoing nicotine addiction Anxiety Currently with a smoking Occasional USE History of hydradenitis suppurative with bilateral axillary abscesses. DVT prophylaxis with heparin subcu Plan: Status post right-sided chest tube placement. Continue with pain management. CT surgery and pulmonary was consulted. Encourage incentive spirometry and deep breathing exercises. Follow-up serial x-rays. Arnoldo 1 antitrypsin level was ordered. Smoking cessation has been counseled.
--- NOTE | 2020-08-25 16:24 | P.CNPUL ---
History of Present Illness Consult date: 08/25/20 Requesting physician: Asuncion Damon Reason for consult: pneumothorax, abnormal CXR/CT Chief complaint: Right-sided chest and upper back pain History of present illness: This is a pleasant 35-year-old female patient with no significant past medical history. She does have chronic and ongoing tobacco dependence. She presented here to the emergency room 08/24/2020 with complaints of right-sided chest back and right shoulder pain. She was having pain while taking a deep breath. She sensation in her chest. Chest x-ray revealed a large right-sided pneumothorax. No tension was noted. Follow-up chest x-ray revealed small right apical pneumothorax of approximately 15%. Status post right-sided Thoravent placement. She is seen today in consultation on the regular medical or chest currently resting comfortably in bed. Awake and alert in no acute distress. He is maintaining O2 saturations up to 100% on room air. She's afebrile. Hemodynamically stable. Remains in place to Pleur-evac and wall suction. No leak noted currently. White count 16.9. Hemoglobin 14.8. Sodium 137. Potas sium 3.6. Creatinine 0.56. Santiago virus not detected. Review of Systems REVIEW OF SYSTEMS: CONSTITUTIONAL: Denies any recent significant weight loss or weight gain. EYES: Denies change in vision. EARS, NOSE, MOUTH, THROAT: Denies headaches, denies sore throat. CARDIOVASCULAR: Positive for right-sided chest pain, no palpitations or syncopal episodes. RESPIRATORY: Positive for sharp right-sided chest pain, shortness of breath on inspiration GASTROINTESTINAL: Denies change in appetite, denies abdominal pain GENITOURINARY: Denies hematuria, denies infections. MUSKULOSKELETAL: Denies pain, denies swelling. INTEGUMENTARY: Denies rash, denies eczema. NEUROLOGICAL: Denies recent memory loss, no recent seizure activity. PSYCHIATRIC: Denies anxiety, denies depression. HEMATOLOGIC/LYMPHATIC: Denies anemia, denies enlarged lymph nodes. Past Medical History Past Medical History: Skin Disorder, Syncope Additional Past Medical History / Comment(s): 03-07-16 RT AXILLARY ABCESS.02/03/15 Pt admitted to [facility] ER with abscess in L armpit. Pt has had extensive surgery in the past for this abscess but it has come back. Pt was on clindamycin about 2 weeks ago. She is admitted with hidadenitis suppurativa. Other HX: L/R axillae hidradenitis with ABX and surgical txs, syncopy, UTI, chronic pain. History of Any Multi-Drug Resistant Organisms: MRSA Date of last positivie culture/infection: 12/23/2014 MDRO Source:: left axilla Past Surgical History: Section Additional Past Surgical History / Comment(s): R axillary abscess (hidradenitis suppuriativa) removal, L axillary abscess (hidradenitis suppurativa) surgery- large excision with wound vac, sweat glands removed.03-07-16 I&D RT AXILLARY ABCESS. Past Anesthesia/Blood Transfusion Reactions: No Reported Reaction Additional Past Anesthesia/Blood Transfusion Reaction / Comment(s): Pt received blood without reaction after 1st childbirth. Past Psychological History: Anxiety Smoking Status: Current every day smoker Past Alcohol Use History: Occasional Past Drug Use History: None Reported - Past Family History Father Family Medical History: No Reported History Additional Family Medical History / Comment(s): Father is healthy Mother Family Medical History: No Reported History Additional Family Medical History / Comment(s): Mother is healthy Medications and Allergies Home Medications Medication Instructions Recorded Confirmed Type No Known Home Medications 08/25/20 08/25/20 History Allergies Allergy/AdvReac Type Severity Reaction Status Date / Time No Known Allergies Allergy Verified 08/25/20 07:43 Physical Exam Vitals: Vital Signs Temp Pulse Pulse Resp BP BP Pulse Ox 08/25/20 11:19 97.7 F 58 L 16 104/64 100 08/25/20 08:40 58 L 16 08/25/20 05:22 98.7 F 97 16 124/77 93 L 08/25/20 03:02 98.2 F 95 16 134/85 100 08/25/20 02:36 79 22 139/91 95 08/25/20 02:31 86 22 139/91 95 08/25/20 00:38 101 H 18 124/81 100 08/25/20 00:00 86 18 113/69 100 08/24/20 23:35 68 20 137/95 100 08/24/20 23:01 20 08/24/20 21:43 98.0 F 95 20 116/84 100 Intake and Output 08/25/20 08/25/2021 06:59 14:59 22:59 Intake Total 590 Balance 590 Intake: Oral 590 Other: Voiding Method Toilet Toilet Weight 64.864 kg GENERAL EXAM: Alert, very pleasant 35-year-old female patient, on room air, fairly comfortable in no apparent distress. HEAD: Normocephalic. EYES: Normal reaction of pupils, equal size. NOSE: Clear with pink turbinates. THROAT: No erythema or exudates. NECK: No masses, no JVD. CHEST: Right sided Thora-Vent in place LUNGS: Equal air entry with no crackles, wheeze, rhonchi or dullness. Diminished in the right upper lobe. CVS: S1 and S2 normal with no audible murmur, regular rhythm. ABDOMEN: No hepatosplenomegaly, normal bowel sounds, no guarding or rigidity. SPINE: No scoliosis or deformity SKIN: No rashes CENTRAL NERVOUS SYSTEM: No focal deficits, tone is normal in all 4 extremities. EXTREMITIES: There is no peripheral edema. No clubbing, no cyanosis. Peripheral pulses are intact. Results - Laboratory Findings CBC and BMP: 08/25/20 07:43 08/25/20 07:43 Abnormal lab findings: Abnormal Labs 08/25/20 07:43 WBC 16.9 H - Diagnostic Findings Chest x-ray: image reviewed Assessment and Plan Assessment: 1 Spontaneous right-sided pneumothorax status post Thora-Vent placement early AM 08/25/2020 2 Chronic and ongoing tobacco dependence 3 History of left axillary abscess with extensive surgery Plan: The patient was seen and evaluated by Dr. Dominguez Chest x-ray was reviewed Continue Thora vent for now Incentive spirometer Follow-up chest x-ray in a.m. Educated regarding the importance of complete smoking cessation We will continue to follow and make further recommendations based on her clinical status I, the cosigning physician, performed a history & physical examination of the patient. Lungs sounds diminished in the right upper lobe. Maintaining good O2 saturations in the 90s on room air. I discussed the assessment and plan of care with my nurse practitioner, Katerine Frazier. I attest to the above consultation as dictated by her. Time with Patient: Greater than 30
[2020-08-25] MEDS: HEPARIN SODIUM,PORCINE/PF 5,000 UNIT/0.5 ML SYRINGE SQ SCH (19:16)
[2020-08-26] MEDS: KETOROLAC 15 MG/ML 1 ML VIAL IVP SCH ×4 (05:25→23:45)
[2020-08-26] MEDS: MORPHINE SULFATE 4 MG/ML SYRINGE IV PRN ×4 (05:30→21:48)
[2020-08-26 05:45] LABS: Basophils % (A) 0 %; Eosinophils # (A) 0.1 k/uL (0-0.7); Eosinophils % (A) 2 %; HCT 33.4 % (34.0-46.0); HGB 10.6 gm/dL (11.4-16.0); Lymphocytes # (A) 3.5 k/uL (1.0-4.8); Lymphocytes % (A) 55 %; MCH 28.4 pg (25.0-35.0); MCHC 31.7 g/dL (31.0-37.0); MCV 89.7 fL (80.0-100.0); Mean Platelet Volume 7.4; Monocytes # (A) 0.2 k/uL (0-1.0); Monocytes % (A) 3 %; Neutrophils # (A) 2.4 k/uL (1.3-7.7); Neutrophils % (A) 38 %; Platelet Count 194 k/uL (150-450); RBC 3.72 m/uL (3.80-5.40); RDW 13.5 % (11.5-15.5); WBC 6.4 k/uL (3.8-10.6)
--- NOTE | 2020-08-26 08:24 | XR ---
EXAMINATION TYPE: XR chest 1V portable DATE OF EXAM: 08/26/2020 COMPARISON: NONE HISTORY: TECHNIQUE: Single frontal view of the chest is obtained. FINDINGS: There is a slightly larger right pneumothorax of approximately 20%. Right-sided chest tube is seen. No evidence of mediastinal shift. Heart size is within normal limits. Left lung is clear. IMPRESSION: 1. Slightly larger right pneumothorax is approximately 20%. Right chest tube is seen. This may need t o be readjusted. No mediastinal shift.
[2020-08-26] MEDS ORDERED: ALPRAZolam 0.25 MG TAB PO PRN (09:14)
[2020-08-26] MEDS: HEPARIN SODIUM,PORCINE/PF 5,000 UNIT/0.5 ML SYRINGE SQ SCH ×2 (09:26→21:40)
[2020-08-26] MEDS: SODIUM CHLORIDE 0.9% 1,000 ML IV SCH ×2 (09:26→21:17)
[2020-08-26] MEDS: FAMOTIDINE 20 MG TAB PO SCH ×2 (09:26→21:40)
--- NOTE | 2020-08-26 10:27 | P.PN ---
Subjective Progress Note Date: 08/26/20 Principal diagnosis: Spontaneous right-sided pneumothorax, first occurrence, status post thoravent placement by the emergency room physicians. Current tobacco dependence, history of hydadenitis suppurativa with bilateral axillary abscesses Patient's currently laying in bed on the medical surgical unit in no acute distress. Does complain of pain at the thoravent site and continues to have pain with deep breaths. Chest x-ray reviewed this morning, right-sided pneumothorax appears worse than yesterday and there is no air leak in the chest tube chamber despite being connected to continuous wall suction. She is oxygenating well on room air and able to achieve 1250 mL on incentive spirometry. Objective - Vital Signs Vital signs: Vital Signs Temp 98 F 08/26/20 05:07 Pulse 68 08/26/20 05:20 Resp 16 08/26/20 05:07 BP 109/73 08/26/20 05:07 Pulse Ox 100 08/26/20 05:07 Intake & Output 08/25/20 08/26/20 08/26/20 18:59 06:59 18:59 Intake Total 240 1550 480 Balance 240 1550 480 Intake: Intake, IV Titration 1250 Amount Sodium Chloride 0.9% 1, 1200 000 ml @ 100 mls/hr IV . Q10H HAYDEE Rx#:[id number] ceFAZolin 1,000 mg In 50 Sodium Chloride 0.9% 50 ml @ 100 mls/hr IVPB Q8H HAYDEE Rx#:[id number] Oral 240 300 480 Other: Voiding Method Toilet Toilet # Voids 3 2 - Exam CONSTITUTIONAL: Appears uncomfortable, cooperative, no acute distress RESPIRATORY: Lungs sounds diminished bilaterally. Respirations even, nonlabored. Currently on room air with oxygen saturation 100%. Able to achieve 1250 mL on incentive spirometry. Strong cough. CARDIOVASCULAR: S1, S2 present. Regular rate and rhythm. Palpable peripheral pulses bilaterally. No edema present. No calf pain or tenderness noted. GASTROINTESTINAL: Abdomen soft, nontender, nondistended. Active bowel sounds present 4 quadrants. Tolerating diet. GENITOURINARY: Continues to void clear, yellow urineThoracic incision well approximated and covered with dry intact dressing. NEUROLOGIC: Cranial nerves II through XII intact MUSKULOSKELETAL: Able to move all extremities, strength equal bilaterally, gait normal PSYCHIATRIC: Alert and oriented to person place and time, appropriate affect, intact judgment and insight INVASIVE LINES AND TUBES: Right-sided thoravent present to continuous wall suction, no air leak initially, no drainage - Allied health notes Allied health notes reviewed: nursing - Labs CBC & Chem 7: 08/26/20 05:11 08/25/20 07:43 Labs: Abnormal Lab Results - Last 24 Hours (Table) 08/26/20 Range/Units 05:11 RBC 3.72 L (3.80-5.40) m/uL Hgb 10.6 L (11.4-16.0) gm/dL Hct 33.4 L (34.0-46.0) % - Imaging and Cardiology Chest x-ray: report reviewed, image reviewed Assessment and Plan Assessment: 1. Spontaneous right-sided pneumothorax, first occurrence, status post thoravent placement by the emergency room physicians 2. Current tobacco dependence 3. History of hydadenitis suppurativa with bilateral axillary abscesses Plan: 1. T piece connected to thoravent with suction applied via 60 mm Luer-Jane syringe, air leak present post removal of T piece. Will repeat chest x-ray in 2 hours. If pneumothorax not significantly better may need full thoracostomy tube 2. Continue to encourage incentive spirometry use 3. Continue to encourage smoking cessation 4. Pain controlled current medication regimen 5. Increase activity, ambulate in room 6. We'll continue to monitor daily chest x-rays 7. Medical management other comorbidities per primary care service 8. More recommendations to follow Time with Patient: Greater than 30
[2020-08-26] MEDS: HYDROmorphone 0.5 MG/0.5 ML SYRINGE IVP PRN ×2 (11:06→17:36)
--- NOTE | 2020-08-26 11:52 | XR ---
EXAMINATION TYPE: XR chest 1V portable DATE OF EXAM: 08/26/2020 COMPARISON: 08/26/2020 HISTORY: Right pneumothorax TECHNIQUE: Single frontal view of the chest is obtained. FINDINGS: There is near complete resolution of the previously seen right pneumothorax. Right-sided c hest tube is seen. No mediastinal shift. Right basilar atelectasis. Probable tiny right pleural effus ion. Nodule projecting over the right lower lobe may be external. The left lung is clear. Heart size is within normal limits, stable. IMPRESSION: 1. Near complete resolution of previously seen right pneumothorax. Right-sided chest tube is seen. 2. This may be part of tubing. There is a nodular area within the right lower lung. This may be part of the right chest tube device. Follow-up chest x-ray could be obtained after chest tube is removed.
[2020-08-26 12:42] LABS: African American GFR (CKD) 131.9 (60.0-200.0); Anion Gap 5.4 mmol/L (4.00-12.00); BUN/Creat Ratio 8.57 Ratio (12.00-20.00); Calcium 8.2 mg/dL (8.7-10.3); Carbon Dioxide 23.6 mmol/L (21.6-31.8); Non-African American GFR(CKD) 113.8 (60.0-200.0); Potassium 3.9 mmol/L (3.5-5.5)
[2020-08-26] MEDS: ALPRAZolam 0.5 MG TAB PO PRN ×2 (13:03→21:40)
--- NOTE | 2020-08-26 15:16 | P.PN ---
Subjective Progress Note Date: 08/26/20 Principal diagnosis: Spontaneous pneumothorax This is a pleasant 35-year-old female patient with no significant past medical history. She does have chronic and ongoing tobacco dependence. She presented here to the emergency room 08/24/2020 with complaints of right-sided chest back and right shoulder pain. She was having pain while taking a deep breath. She sensation in her chest. Chest x-ray revealed a large right-sided pneumothorax. No tension was noted. Follow-up chest x-ray revealed small right apical pneumothorax of approximately 15%. Status post right-sided Thoravent placement. She is seen today in consultation on the regular medical or chest currently resting comfortably in bed. Awake and alert in no acute distress. He is maintaining O2 saturations up to 100% on room air. She's afebrile. Hemodynamically stable. Remains in place to Pleur-evac and wall suction. No leak noted currently. White count 16.9. Hemoglobin 14.8. Sodium 137. Potassium 3.6. Creatinine 0.56. Santiago virus not detected. Patient is seen today 08/26/2020 in follow-up on the regular medical floor. She is currently resting quite comfortably in bed. Awake and alert in no acute distress. Maintaining O2 saturations up to 100% on room air. She's afebrile. Hemodynamically stable. Right sided Thora-Vent remains in place. Currently to wall suction. No leak noted. Follow-up chest x-ray reveals near complete resolution of right-sided pneumothorax. She continues to work well with the incentive spirometer. Objective - Vital Signs Vital signs: Vital Signs Temp 97.8 F 08/26/20 12:45 Pulse 74 08/26/20 12:45 Resp 16 08/26/20 12:45 BP 119/79 08/26/20 12:45 Pulse Ox 100 08/26/20 12:45 Intake & Output 08/25/20 08/26/20 08/26/20 18:59 06:59 18:59 Intake Total 240 1550 480 Balance 240 1550 480 Intake: Intake, IV Titration 1250 Amount Sodium Chloride 0.9% 1, 1200 000 ml @ 100 mls/hr IV . Q10H HAYDEE Rx#:[id number] ceFAZolin 1,000 mg In 50 Sodium Chloride 0.9% 50 ml @ 100 mls/hr IVPB Q8H HAYDEE Rx#:[id number] Oral 240 300 480 Other: Voiding Method Toilet Toilet Toilet # Voids 3 2 - Exam GENERAL EXAM: Alert, active, pleasant 35-year-old female patient, on room air, comfortable in no apparent distress. HEAD: Normocephalic. EYES: Normal reaction of pupils, equal size. NOSE: Clear with pink turbinates. THROAT: No erythema or exudates. NECK: No masses, no JVD. CHEST: Right sided Thora-Vent remains in place LUNGS: Equal air entry with no crackles, wheeze, rhonchi or dullness. CVS: S1 and S2 normal with no audible murmur, regular rhythm. ABDOMEN: No hepatosplenomegaly, normal bowel sounds, no guarding or rigidity. SPINE: No scoliosis or deformity SKIN: No rashes CENTRAL NERVOUS SYSTEM: No focal deficits, tone is normal in all 4 extremities. EXTREMITIES: There is no peripheral edema. No clubbing, no cyanosis. Peripheral pulses are intact. - Labs CBC & Chem 7: 08/26/20 05:11 08/26/20 05:11 Labs: Abnormal Lab Results - Last 24 Hours (Table) 08/26/20 08/26/20 08/26/20 Range/Units 05:11 05:11 05:31 RBC 3.72 L (3.80-5.40) m/uL Hgb 10.6 L (11.4-16.0) gm/dL Hct 33.4 L (34.0-46.0) % Chloride 111 H (96-109) mmol/L BUN 6.0 L (9.0-27.0) mg/dL BUN/Creatinine Ratio 8.57 L (12.00-20.00) Ratio Calcium 8.2 L (8.7-10.3) mg/dL Sxvcq-9-Pxnyumtdisa 98.8 L (99.0-242.0) mg/dL Assessment and Plan Assessment: 1 Spontaneous right-sided pneumothorax status post Thora-Vent placement early AM 08/25/2020 2 Chronic and ongoing tobacco dependence 3 History of left axillary abscess with extensive surgery Plan: The patient was seen and evaluated by Dr. Dominguez Chest x-ray was reviewed Continue Thora vent for now CT services on the case Continue incentive spirometer I, the cosigning physician, performed a history & physical examination of the patient. Lungs sounds diminished in the right upper lobe. Maintaining good O2 saturations in the 90s on room air. I discussed the assessment and plan of care with my nurse practitioner, Katerine Frazier. I attest to the above note as dictated by her.
--- NOTE | 2020-08-26 16:41 | P.PN ---
Subjective Progress Note Date: 08/26/20 Patient is a 35-year-old male with a known history of anxiety, currently rate is no current occasional alcohol use presents to ER with complaints of right-sided chest pain as well as upper back and right shoulder pain worsened last night. Patient says that she has been having sharp pains almost 6 months on and off. Patient did not go to see her primary care physician. Pain gets worse with deep breathing and coughing. Otherwise denied any sputum production. No fever no chills. No recent illnesses. No respiratory infections. No nausea vomiting or abdominal pain or diarrhea. Chest x-ray showed large right-sided pneumothorax. No tension seen. Normal heart. EKG showed normal sinus rhythm Right-sided chest tube was placed in the ER with significant improvement in pneumothorax. Laboratory data reviewed. 08/26/2020 Patient is seen in follow-up with no acute overnight issues noted. Patient had repeat chest x-ray this morning showing a slightly larger right pneumothorax that is approximately 20% with no mediastinal shift noted. Review thoracic along with pulmonary following closely and [employer]YER from CT surgery evaluated after the x-ray with adjustments and did note an air leak in the chest tube. After adjusting repeat chest x-ray shows near complete resolution of the right pneumothorax with the possibility of a part of the tubing appearing as a nodular area within the right lower lung and radiologist reports that this may be part of the right chest tube device with follow-up chest x-ray after chest tube was removed is recommended. Patient is extremely anxious and will add Xanax as n eeded. Patient is tearful and very scared at this time. White blood count markedly improved at 6.4 and hemoglobin is stable at 10.6. Sodium is 140 with a potassium of 3.9 current creatinine is 0.7. Alpha 1 anti-trypsin is low at 98.8. Review of systems: Constitutional: No reports of fatigue, fever, or chills, reports increased anxiety Cardiovascular: Reports some chest wall tenderness, denies palpitations Respiratory: rePorts intermittent shortness of breath GI: No reports of nausea, vomiting, or diarrhea : No reports of dysuria or retention Neurovascular: No reports of weakness or numbness All medications have been reviewed Objective - Vital Signs Vital signs: Vital Signs Temp 98 F 08/26/20 05:07 Pulse 68 08/26/20 05:20 Resp 16 08/26/20 05:07 BP 109/73 08/26/20 05:07 Pulse Ox 100 08/26/20 05:07 Intake & Output 08/25/20 08/26/20 08/26/20 18:59 06:59 18:59 Intake Total 240 1550 480 Balance 240 1550 480 Intake: Intake, IV Titration 1250 Amount Sodium Chloride 0.9% 1, 1200 000 ml @ 100 mls/hr IV . Q10H [facility]AYDEE Rx#:[id number] ceFAZolin 1,000 mg In 50 Sodium Chloride 0.9% 50 ml @ 100 mls/hr IVPB Q8H HAYDEE Rx#:[id number] Oral 240 300 480 Other: Voiding Method Toilet Toilet # Voids 3 2 - Exam Patient is sitting up in the bed comfortably, no acute distress, awake alert and oriented.. Anxious and tearful HEENT: Normocephalic. Neck is supple. Pupils reactive. Nostrils clear. Oral cavity is moist. Neck reveals no JVD, carotid bruits, or thyromegaly. CHEST EXAMINATION: Trachea is central. Symmetrical expansion. Right basilar diminished breath sounds. Lung hi clear to auscultation and percussion. CARDIAC: Normal S1, S2 with no gallops. No murmurs ABDOMEN: Soft. Bowel sounds normal. No organomegaly. No abdominal bruits. Extremities: reveal no edema. No clubbing or cyanosis Neurologically awake, alert, oriented x3 with well-coordinated movements. No focal deficits noted Skin: No rash or skin lesions. Psychiatric: Cooperative. Non-suicidal, anxious and tearful Musculoskeletal: No joint swelling or deformity. Normal range of motion. - Labs CBC & Chem 7: 08/26/20 05:11 08/26/20 05:11 Labs: Abnormal Lab Results - Last 24 Hours (Table) 08/26/20 Range/Units 05:11 RBC 3.72 L (3.80-5.40) m/uL Hgb 10.6 L (11.4-16.0) gm/dL Hct 33.4 L (34.0-46.0) % Assessment and Plan Assessment: Spontaneous right-sided pneumothorax status post coronary thoravent placement in the ER. Ongoing nicotine addiction Anxiety History of hydradenitis suppurative with bilateral axillary abscesses. History of MRSA DVT prophylaxis with heparin subcu Plan: Status post right-sided chest tube placement. Continue with pain management. CT surgery and pulmonary following. Follow-up chest x-ray this morning showed an increase in pneumothorax on the right side of 20% and adjustments were made and repeat chest x-ray shows near resolution and will continue with low intermittent suction and will reevaluate in the morning again repeat x-ray. Encourage incentive spirometry and deep breathing exercises. Patient's anxiety is extremely elevated and patient is easily tearful during conversation and will add Xanax as needed. [id number] level is 98.8. Smoking cessation has been counseled.
[2020-08-26] MEDS: HYDROmorphone 1 MG/ML 1 ML SYRINGE IVP PRN (19:54)
[2020-08-27] MEDS: HYDROmorphone 1 MG/ML 1 ML SYRINGE IVP PRN ×3 (01:43→23:58)
[2020-08-27] MEDS: SODIUM CHLORIDE 0.9% 1,000 ML IV SCH ×3 (04:34→23:58)
[2020-08-27] MEDS: MORPHINE SULFATE 4 MG/ML SYRINGE IV PRN ×3 (04:34→14:49)
[2020-08-27] MEDS: KETOROLAC 15 MG/ML 1 ML VIAL IVP SCH ×4 (05:36→23:58)
--- NOTE | 2020-08-27 09:16 | P.PN ---
Subjective Progress Note Date: 08/27/20 Principal diagnosis: Spontaneous right-sided pneumothorax, first occurrence, status post thoravent placement by the emergency room physicians. Current tobacco dependence, history of hydadenitis suppurativa with bilateral axillary abscesses Patient's currently laying in bed on the medical surgical unit in no acute distress. Does complain of pain at the thoravent site, pain medication adjusted yesterday. Chest x-ray reviewed this morning, stable. She is oxygenating well on room air and able to achieve 1500 mL on incentive spirometry. Objective - Vital Signs Vital signs: Vital Signs Temp 97.5 F L 08/27/20 02:00 Pulse 51 L 08/27/20 02:00 Resp 16 08/27/20 02:00 BP 106/71 08/27/20 02:00 Pulse Ox 100 08/27/20 02:00 Intake & Output 08/26/20 08/27/20 08/27/20 18:59 06:59 18:59 Intake Total 480 2320 Output Total 0 Balance 480 2320 Intake: Intake, IV Titration 1250 Amount Sodium Chloride 0.9% 1, 1200 000 ml @ 100 mls/hr IV . Q10H HAYDEE Rx#:[id number] ceFAZolin 1,000 mg In 50 Sodium Chloride 0.9% 50 ml @ 100 mls/hr IVPB Q8H HAYDEE Rx#:[id number] Oral 480 1070 Output: Chest Tube Drainage 0 Thora-Vent Right Anterior 0 Chest Other: Voiding Method Toilet # Voids 1 2 - Exam CONSTITUTIONAL: Appears comfortable, cooperative, no acute distress RESPIRATORY: Lungs sounds diminished bilaterally. Respirations even, nonlabored. Currently on room air with oxygen saturation 100%. Able to achieve 1500 mL on incentive spirometry. Strong cough. CARDIOVASCULAR: S1, S2 present. Regular rate and rhythm. Palpable peripheral pulses bilaterally. No edema present. No calf pain or tenderness noted. GASTROINTESTINAL: Abdomen soft, nontender, nondistended. Active bowel sounds present 4 quadrants. Tolerating diet. GENITOURINARY: Continues to void clear, yellow urine NEUROLOGIC: Cranial nerves II through XII intact MUSKULOSKELETAL: Able to move all extremities, strength equal bilaterally, gait normal PSYCHIATRIC: Alert and oriented to person place and time, appropriate affect, intact judgment and insight INVASIVE LINES AND TUBES: Right-sided thoravent present to continuous wall suction, no air leak - Allied health notes Allied health notes reviewed: nursing - Labs CBC & Chem 7: 08/26/20 05:11 08/26/20 05:11 Labs: Abnormal Lab Results - Last 24 Hours (Table) 08/26/20 08/26/20 Range/Units 05:11 05:31 Chloride 111 H (96-109) mmol/L BUN 6.0 L (9.0-27.0) mg/dL BUN/Creatinine Ratio 8.57 L (12.00-20.00) Ratio Calcium 8.2 L (8.7-10.3) mg/dL [id number] 98.8 L (99.0-242.0) mg/dL - Imaging and Cardiology Chest x-ray: image reviewed Assessment and Plan Assessment: 1. Spontaneous right-sided pneumothorax, first occurrence, status post tho ravent placement by the emergency room physicians 2. Current tobacco dependence 3. History of hydadenitis suppurativa with bilateral axillary abscesses Plan: 1. Continuous wall suction discontinued at 7 AM, continues to have no air leak. Will place occlusive cap. Will repeat chest x-ray tomorrow morning, if lung remains expanded will discontinue thoravent tomorrow 2. Continue to encourage incentive spirometry use 3. Continue to encourage smoking cessation 4. Pain control with current medication regimen 5. Increase activity, ambulate as tolerated 6. Medical management other comorbidities per primary care service 7. More recommendations to follow Time with Patient: Greater than 30
[2020-08-27] MEDS: FAMOTIDINE 20 MG TAB PO SCH ×2 (09:24→20:31)
[2020-08-27] MEDS: HEPARIN SODIUM,PORCINE/PF 5,000 UNIT/0.5 ML SYRINGE SQ SCH ×2 (09:24→20:31)
--- NOTE | 2020-08-27 10:53 | XR ---
EXAMINATION TYPE: XR chest 1V portable DATE OF EXAM: 08/27/2020 COMPARISON: 08/26/2020 HISTORY: Pneumothorax status post suction of chest tube TECHNIQUE: Single frontal view of the chest is obtained. FINDINGS: Stable right thoracostomy catheter. No pneumothorax or pleural effusion. Mild pulmonary vascular congestion. Bibasilar atelectasis, no focal airspace disease. Normal cardiomediastinal silhouette. No acute osseous abnormality. IMPRESSION: No pneumothorax. Mild pulmonary vascular congestion and atelectasis improved.
--- NOTE | 2020-08-27 11:06 | P.PN ---
Subjective Progress Note Date: 08/27/20 Principal diagnosis: Spontaneous pneumothorax This is a pleasant 35-year-old female patient with no significant past medical history. She does have chronic and ongoing tobacco dependence. She presented here to the emergency room 08/24/2020 with complaints of right-sided chest back and right shoulder pain. She was having pain while taking a deep breath. She sensation in her chest. Chest x-ray revealed a large right-sided pneumothorax. No tension was noted. Follow-up chest x-ray revealed small right apical pneumothorax of approximately 15%. Status post right-sided Thoravent placement. She is seen today in consultation on the regular medical or chest currently resting comfortably in bed. Awake and alert in no acute distress. He is maintaining O2 saturations up to 100% on room air. She's afebrile. Hemodynamically stable. Remains in place to Pleur-evac and wall suction. No leak noted currently. White count 16.9. Hemoglobin 14.8. Sodium 137. Potassium 3.6. Creatinine 0.56. Santiago virus not detected. Patient is seen today 08/26/2020 in follow-up on the regular medical floor. She is currently resting quite comfortably in bed. Awake and alert in no acute distress. Maintaining O2 saturations up to 100% on room air. She's afebrile. Hemodynamically stable. Right sided Thora-Vent remains in place. Currently to wall suction. No leak noted. Follow-up chest x-ray reveals near complete resolution of right-sided pneumothorax. She continues to work well with the incentive spirometer. The patient is seen today 08/27/2020 in follow-up on the regular medical floor. She is currently awake and alert in no acute distress. Resting comfortably in bed. Maintaining O2 saturations in the 90s on room air. Right Thora vent has been capped. Chest x-ray reveals no evidence of pneumothorax. There is improved mild pulmonary vascular congestion and atelectasis. She continues to work well with the incentive spirometer. Objective - Vital Signs Vital signs: Vital Signs Temp 97.5 F L 08/27/20 02:00 Pulse 51 L 08/27/20 08:35 Resp 16 08/27/20 08:35 BP 106/71 08/27/20 02:00 Pulse Ox 100 08/27/20 02:00 Intake & Output 08/26/20 08/27/20 08/27/20 18:59 06:59 18:59 Intake Total 480 2320 Output Total 0 Balance 480 2320 Intake: Intake, IV Titration 1250 Amount Sodium Chloride 0.9% 1, 1200 000 ml @ 100 mls/hr IV . Q10H HAYDEE Rx#:[id number] ceFAZolin 1,000 mg In 50 Sodium Chloride 0.9% 50 ml @ 100 mls/hr IVPB Q8H HAY[facility]E Rx#:[id number] Oral 480 1070 Output: Chest Tube Drainage 0 Thora-Vent Right Anterior 0 Chest Other: Voiding Method Toilet Bedside Commode # Voids 1 2 - Exam GENERAL EXAM: Alert, active, pleasant 35-year-old female patient, on room air, comfortable in no apparent distress. HEAD: Normocephalic. EYES: Normal reaction of pupils, equal size. NOSE: Clear with pink turbinates. THROAT: No erythema or exudates. NECK: No masses, no JVD. CHEST: Right sided Thora-Vent remains in place LUNGS: Equal air entry with no crackles, wheeze, rhonchi or dullness. CVS: S1 and S2 normal with no audible murmur, regular rhythm. ABDOMEN: No hepatosplenomegaly, normal bowel sounds, no guarding or rigidity. SPINE: No scoliosis or deformity SKIN: No rashes CENTRAL NERVOUS SYSTEM: No focal deficits, tone is normal in all 4 extremities. EXTREMITIES: There is no peripheral edema. No clubbing, no cyanosis. Peripheral pulses are intact. - Labs CBC & Chem 7: 08/26/20 05:11 08/26/20 05:11 Labs: Abnormal Lab Results - Last 24 Hours (Table) 08/26/20 08/26/20 Range/Units 05:11 05:31 Chloride 111 H (96-109) mmol/L BUN 6.0 L (9.0-27.0) mg/dL BUN/Creatinine Ratio 8.57 L (12.00-20.00) Ratio Calcium 8.2 L (8.7-10.3) mg/dL [id number] 98.8 L (99.0-242.0) mg/dL Assessment and Plan Assessment: 1 Spontaneous right-sided pneumothorax status post Thora-Vent placement early AM 08/25/2020. Capped on 08/27/2020 2 Chronic and ongoing tobacco dependence 3 History of left axillary abscess with extensive surgery, history of hydradenitis Plan: The patient was seen and evaluated by Dr. Dominguez Chest x-ray was reviewed Continue Thora vent for now, currently capped Follow-up x-ray in a.m. Continue incentive spirometer We will continue to follow I, the cosigning physician, performed a history & physical examination of the patient. Lungs sounds diminished in the right upper lobe. Maintaining good O2 saturations in the 90s on room air. I discussed the assessment and plan of care with my nurse practitioner, Katerine Frazier. I attest to the above note as dictated by her.
[2020-08-27] MEDS ORDERED: DOCUSATE 100 MG CAP PO PRN (14:50)
[2020-08-27] MEDS: ALPRAZolam 0.5 MG TAB PO PRN (16:20)
[2020-08-27 20:56] VITALS: RESP 16
[2020-08-28] MEDS: MORPHINE SULFATE 4 MG/ML SYRINGE IV PRN ×2 (03:33→08:11)
[2020-08-28] MEDS: KETOROLAC 15 MG/ML 1 ML VIAL IVP SCH ×2 (05:45→10:53)
[2020-08-28] MEDS: SODIUM CHLORIDE 0.9% 1,000 ML IV SCH (05:46)
[2020-08-28] MEDS: FAMOTIDINE 20 MG TAB PO SCH (08:11)
[2020-08-28] MEDS: HEPARIN SODIUM,PORCINE/PF 5,000 UNIT/0.5 ML SYRINGE SQ SCH (08:11)
--- NOTE | 2020-08-28 08:17 | P.PN ---
Subjective Progress Note Date: 08/28/20 Principal diagnosis: Spontaneous right-sided pneumothorax, first occurrence, status post thoravent placement by the emergency room physicians. Current tobacco dependence, history of hydadenitis suppurativa with bilateral axillary abscesses Patient's currently laying in bed on the medical surgical unit in no acute distress. Does complain of pain at the thoravent site but otherwise no new complaints. Chest x-ray reviewed this morning, stable, no pneumothorax. She is oxygenating well on room air and able to achieve 1500 mL on incentive spirometry. Objective - Vital Signs Vital signs: Vital Signs Temp 98.2 F 08/28/20 05:00 Pulse 59 L 08/28/20 05:00 Resp 16 08/28/20 05:00 BP 103/69 08/28/20 05:00 Pulse Ox 100 08/28/20 05:00 Intake & Output 08/27/20 08/28/20 08/28/20 18:59 06:59 18:59 Intake Total 240 590 Balance 240 590 Intake: Oral 240 590 Other: Voiding Method Bedside Commode # Voids 3 4 - Exam CONSTITUTIONAL: Appears comfortable, cooperative, no acute distress RESPIRATORY: Lungs sounds diminished bilaterally. Respirations even, nonlabored. Currently on room air with oxygen saturation 100%. Able to achieve 1500 mL on incentive spirometry. Strong cough. CARDIOVASCULAR: S1, S2 present. Regular rate and rhythm. Palpable peripheral pulses bilaterally. No edema present. No calf pain or tenderness noted. GASTROINTESTINAL: Abdomen soft, nontender, nondistended. Active bowel sounds present 4 quadrants. Tolerating diet. GENITOURINARY: Continues to void clear, yellow urine NEUROLOGIC: Cranial nerves II through XII intact MUSKULOSKELETAL: Able to move all extremities, strength equal bilaterally, gait normal PSYCHIATRIC: Alert and oriented to person place and time, appropriate affect, intact judgment and insight INVASIVE LINES AND TUBES: Right-sided thoravent present, capped with occlusive cap - Allied health notes Allied health notes reviewed: nursing - Labs CBC & Chem 7: 08/26/20 05:11 08/26/20 05:11 - Imaging and Cardiology Chest x-ray: image reviewed Assessment and Plan Assessment: 1. Spontaneous right-sided pneumothorax, first occurrence, status post thoravent placement by the emergency room physicians 2. Current tobacco dependence 3. History of hydadenitis suppurativa with bilateral axillary abscesses Plan: 1. Chest x-ray reviewed, no pneumothorax present. Thoravent discontinued. Repeat chest x-ray 2 hours, if stable may discharged home from cardiothoracic surgery standpoint when okay with other services 2. Continue to encourage incentive spirometry use 3. Continue to encourage smoking cessation 4. Pain control with current medication regimen 5. Increase activity, ambulate as tolerated 6. Medical management other comorbidities per primary care service 7. More recommendations to follow Time with Patient: Greater than 30
--- NOTE | 2020-08-28 09:04 | XR ---
EXAMINATION TYPE: XR chest 2V DATE OF EXAM: 08/28/2020 COMPARISON: 08/27/2020 HISTORY: Pneumothorax follow-up TECHNIQUE: Frontal and lateral views of the chest are obtained. FINDINGS AND IMPRESSION: Right-sided pleural catheter remains in place. Mild pulmonary vasculature congestion and lung base atelectasis is stable. Cannot exclude a right lower lobe developing airspace disease. No pneumothorax or pleural effusion. Cardiomediastinal silhouette within normal limits. No acute osseous abnormality.
--- NOTE | 2020-08-28 10:37 | P.PN ---
Subjective Progress Note Date: 08/27/20 Principal diagnosis: Spontaneous pneumothorax Patient is a 35-year-old male with a known history of anxiety, currently rate is no current occasional alcohol use presents to ER with complaints of right-sided chest pain as well as upper back and right shoulder pain worsened last night. Patient says that she has been having sharp pains almost 6 months on and off. Patient did not go to see her primary care physician. Pain gets worse with deep breathing and coughing. Otherwise denied any sputum production. No fever no chills. No recent illnesses. No respiratory infections. No nausea vomiting or abdominal pain or diarrhea. Chest x-ray showed large right-sided pneumothorax. No tension seen. Normal heart. EKG showed normal sinus rhythm Right-sided chest tube was placed in the ER with significant improvement in pneumothorax. Laboratory data reviewed. 08/26/2020 Patient is seen in follow-up with no acute overnight issues noted. Patient had repeat chest x-ray this morning showing a slightly larger right pneumothorax that is approximately 20% with no mediastinal shift noted. Review thoracic along with pulmonary following closely and [employer] from CT surgery evaluated after the x-ray with adjustments and did note an air leak in the chest tube. After adjusting repeat chest x-ray shows near complete resolution of the right pneumothorax with the possibility of a part of the tubing appearing as a nodular area within the right lower lung and radiologist reports that this may be part of the right chest tube device with follow-up chest x-ray after chest tube was removed is recommended. Patient is extremely anxious and will add Xanax as needed. Patient is tearful and very scared at this time. White blood count markedly improved at 6.4 and hemoglobin is stable at 10.6. Sodium is 140 with a potassium of 3.9 current creatinine is 0.7. Alpha 1 anti-trypsin is low at 98.8. 08/27/2020 Patient is currently in the medical floor. Awake alert oriented 3. Requesting IV pain medications. Does not appear to be in distress. Right Thora vent has been Today. Next and chest x-ray showed no evidence of pneumothorax. Improved pulmonary vascular congestion and atelectasis. Review of systems: Constitutional: No reports of fatigue, fever, or chills, reports increased anxiety Cardiovascular: Reports some chest wall tenderness, denies palpitations Respiratory: rePorts intermittent shortness of breath GI: No reports of nausea, vomiting, or diarrhea : No reports of dysuria or retention Neurovascular: No reports of weakness or numbness All medications have been reviewed Objective - Vital Signs Vital signs: Vital Signs Temp 98.1 F 08/27/20 12:25 Pulse 63 08/27/20 12:25 Resp 17 08/27/20 12:25 BP 100/67 08/27/20 12:25 Pulse Ox 100 08/27/20 12:25 Intake & Output 08/26/20 08/27/20 08/27/20 18:59 06:59 18:59 Intake Total 480 2320 Output Total 0 Balance 480 2320 Intake: Intake, IV Titration 1250 Amount Sodium Chloride 0.9% 1, 1200 000 ml @ 100 mls/hr IV . Q10H [facility] Rx#:[id number] ceFAZolin 1,000 mg In 50 Sodium Chloride 0.9% 50 ml @ 100 mls/hr IVPB Q8H [facility]E Rx#:[id number] Oral 480 1070 Output: Chest Tube Drainage 0 Thora-Vent Right Anterior 0 Chest Other: Voiding Method Toilet Bedside Commode # Voids 1 2 3 - Exam PHYSICAL EXAMINATION: Patient is lying in the bed comfortably, no acute distress, awake alert and oriented.. HEENT: Normocephalic. Neck is supple. Pupils reactive. Nostrils clear. Oral cavity is moist. Neck reveals no JVD, carotid bruits, or thyromegaly. CHEST EXAMINATION: Trachea is central. Symmetrical expansion. Lung hi clear to auscultation and percussion. Right chest wall Thorvent capped CARDIAC: Normal S1, S2 with no gallops. No murmurs ABDOMEN: Soft. Bowel sounds normal. No organomegaly. No abdominal bruits. Extremities: reveal no edema. No clubbing or cyanosis Neurologically awake, alert, oriented x3 with well-coordinated movements. No focal deficits noted Skin: No rash or skin lesions. Psychiatric: Coperative. Nonsuicidal Musculoskeletal: No joint swelling or deformity. Normal range of motion. - Labs CBC & Chem 7: 08/26/20 05:11 08/26/20 05:11 Assessment and Plan Assessment: Spontaneous right-sided pneumothorax status post thoravent placement in the ER. capped today. Ongoing nicotine addiction Anxiety History of hydradenitis suppurative with bilateral axillary abscesses. History of MRSA DVT prophylaxis with heparin subcu Plan: Status post right-sided chest tube placement. capped today. Continue with pain management. CT surgery and pulmonary following. Follow-up chest x-ray this morning showed an increase in pneumothorax on the right side of 20% and adjustments were made and repeat chest x-ray shows near resolution and will continue with low intermittent suction and will reevaluate in the morning again repeat x-ray. Encourage incentive spirometry and deep breathing exercises. Patient's anxiety is extremely elevated and patient is easily tearful during conversation and will add Xanax as needed. [id number] level is 98.8. Smoking cessation has been counseled.
--- NOTE | 2020-08-28 10:48 | P.PN ---
Subjective Progress Note Date: 08/28/20 Principal diagnosis: Spontaneous pneumothorax This is a pleasant 35-year-old female patient with no significant past medical history. She does have chronic and ongoing tobacco dependence. She presented here to the emergency room 08/24/2020 with complaints of right-sided chest back and right shoulder pain. She was having pain while taking a deep breath. She sensation in her chest. Chest x-ray revealed a large right-sided pneumothorax. No tension was noted. Follow-up chest x-ray revealed small right apical pneumothorax of approximately 15%. Status post right-sided Thoravent placement. She is seen today in consultation on the regular medical or chest currently resting comfortably in bed. Awake and alert in no acute distress. He is maintaining O2 saturations up to 100% on room air. She's afebrile. Hemodynamically stable. Remains in place to Pleur-evac and wall suction. No leak noted currently. White count 16.9. Hemoglobin 14.8. Sodium 137. Potassium 3.6. Creatinine 0.56. Santiago virus not detected. Patient is seen today 08/26/2020 in follow-up on the regular medical floor. She is currently resting quite comfortably in bed. Awake and alert in no acute distress. Maintaining O2 saturations up to 100% on room air. She's afebrile. Hemodynamically stable. Right sided Thora-Vent remains in place. Currently to wall suction. No leak noted. Follow-up chest x-ray reveals near complete resolution of right-sided pneumothorax. She continues to work well with the incentive spirometer. The patient is seen today 08/27/2020 in follow-up on the regular medical floor. She is currently awake and alert in no acute distress. Resting comfortably in bed. Maintaining O2 saturations in the 90s on room air. Right Thora vent has been capped. Chest x-ray reveals no evidence of pneumothorax. There is improved mild pulmonary vascular congestion and atelectasis. She continues to work well with the incentive spirometer. The patient is seen today 08/28/2020 in follow-up on the regular medical floor. Currently resting comfortably in bed. Awake and alert in no acute distress. Her Thora vent was removed by CT services this morning. Follow-up chest x-ray does not reveal any evidence of pneumothorax. Some atelectatic changes in the right lung base only. She is maintaining good O2 saturations in the 90s on room air. No shortness of breath. No right-sided chest discomfort. Hemodynamically stable. Objective - Vital Signs Vital signs: Vital Signs Temp 98.2 F 08/28/20 05:00 Pulse 59 L 08/28/20 05:00 Resp 16 08/28/20 05:00 BP 103/69 08/28/20 05:00 Pulse Ox 100 08/28/20 05:00 Intake & Output 08/27/20 08/28/20 08/28/20 18:59 06:59 18:59 Intake Total 240 590 Balance 240 590 Intake: Oral 240 590 Other: Voiding Method Bedside Commode Bedside Commode # Voids 3 4 - Exam GENERAL EXAM: Alert, active, pleasant 35-year-old female patient, on room air, comfortable in no apparent distress. HEAD: Normocephalic. EYES: Normal reaction of pupils, equal size. NOSE: Clear with pink turbinates. THROAT: No erythema or exudates. NECK: No masses, no JVD. CHEST: Right sided Thora-Vent removed this a.m. LUNGS: Equal air entry with no crackles, wheeze, rhonchi or dullness. CVS: S1 and S2 normal with no audible murmur, regular rhythm. ABDOMEN: No hepatosplenomegaly, normal bowel sounds, no guarding or rigidity. SPINE: No scoliosis or deformity SKIN: No rashes CENTRAL NERVOUS SYSTEM: No focal deficits, tone is normal in all 4 extremities. EXTREMITIES: There is no peripheral edema. No clubbing, no cyanosis. Peripheral pulses are intact. - Labs CBC & Chem 7: 08/26/20 05:11 08/26/20 05:11 Assessment and Plan Assessment: 1 Spontaneous right-sided pneumothorax status post Thora-Vent placement early AM 08/25/2020. Capped on 08/27/2020. Removed on 08/28/2020. 2 Chronic and ongoing tobacco dependence 3 History of left axillary abscess with extensive surgery, history of hydradenitis Plan: The patient was seen and evaluated by Dr. Dominguez Chest x-ray was reviewed No evidence of pneumothorax post Thora vent removal Cleared for discharge once cleared by CT services Continue incentive spirometer Follow-up in the office in 1-2 weeks' I, the cosigning physician, performed a history & physical examination of the patient. Lungs sounds clear bilaterally. Maintaining good O2 saturations in the 90s on room air. I discussed the assessment and plan of care with my nurse Katerine marrero. I attest to the above note as dictated by her.
[2020-08-28 12:05] VITALS: BP 149/82; PULSE 53; TEMP 98.3
--- NOTE | 2020-08-28 14:37 | XR ---
EXAMINATION TYPE: XR chest 2V DATE OF EXAM: 08/28/2020 COMPARISON: 12/29/2020 6:44 AM HISTORY: Post Thora vent removal TECHNIQUE: Frontal and lateral views of the chest are obtained. FINDINGS AND IMPRESSION: Interval removal of right side pleural catheter. No pneumothorax or pleural effusion. Minimal bibasilar right greater than left atelectasis and minimal pulmonary vascular congestion. Cardiomediastinal silhouette within normal limits. No acute osseous abnormality.
--- NOTE | 2020-09-02 17:29 | P.DS ---
Providers Date of admission: 08/25/20 01:29 Expected date of discharge: 08/28/20 Attending physician: Asuncion Damon Consults: 08/25/20 01:30 Consult Physician Routine Consulting Provider: Rei Dominguez Consult Reason/Comments: Spontaneous pneumothorax Do you want consulting provider notified?: Already Contacted 08/25/20 01:53 Consult Physician Routine Consulting Provider: Isael Cummings Consult Reason/Comments: spontaneous Pneumothorax. Thoravent tube inserted Do you want consulting provider notified?: Yes Primary care physician: Debra Parr Hospital Course: Spontaneous right-sided pneumothorax status post thoravent placement in the ER. Removed.. Pneumothorax resolved. Ongoing nicotine addiction Anxiety History of hydradenitis suppurative with bilateral axillary abscesses. History of MRSA DVT prophylaxis with heparin subcu Hospital course Patient is a 35-year-old male with a known history of anxiety, currently rate is no current occasional alcohol use presents to ER with complaints of right-sided chest pain as well as upper back and right shoulder pain worsened last night. Patient says that she has been having sharp pains almost 6 months on and off. Patient did not go to see her primary care physician. Pain gets worse with deep breathing and coughing. Otherwise denied any sputum production. No fever no chills. No recent illnesses. No respiratory infections. No nausea vomiting or abdominal pain or diarrhea. Chest x-ray showed large right-sided pneumothorax. No tension seen. Normal heart. EKG showed normal sinus rhythm Right-sided chest tube was placed in the ER with significant improvement in pneumothorax. Laboratory data reviewed. 08/26/2020 Patient is seen in follow-up with no acute overnight issues noted. Patient had repeat chest x-ray this morning showing a slightly larger right pneumothorax that is approximately 20% with no mediastinal shift noted. Review thoracic along with pulmonary following closely and [employer] from CT surgery evaluated after the x-ray with adjustments and did note an air leak in the chest tube. After adjusting repeat chest x-ray shows near complete resolution of the right pneumothorax with the possibility of a part of the tubing appearing as a nodular area within the right lower lung and radiologist reports that this may be part of the right chest tube device with follow-up chest x-ray after chest tube was removed is recommended. Patient is extremely anxious and will add Xanax as needed. Patient is tearful and very scared at this time. White blood count markedly improved at 6.4 and hemoglobin is stable at 10.6. Sodium is 140 with a potassium of 3.9 current creatinine is 0.7. Alpha 1 anti-trypsin is low at 98.8. 08/27/2020 Patient is currently in the medical floor. Awake alert oriented 3. Requesting IV pain medications. Does not appear to be in distress. Right Thora vent has been Today. Next and chest x-ray showed no evidence of pneumothorax. Improved pulmonary vascular congestion and atelectasis. 08/28/2020 Patient is currently resting in the bed comfortably. Chest pain is much improved. Chest tube has been removed and repeat chest x-ray today showed no pneumothorax. Fluid from pulmonary and CT surgery standpoint Patient is being discharged home today and recommends to follow up with pulmonary as an outpatient in the clinic. Next PHYSICAL EXAMINATION: Patient is lying in the bed comfortably, no acute distress, awake alert and oriented.. HEENT: Normocephalic. Neck is supple. Pupils reactive. Nostrils clear. Oral cavity is moist. Neck reveals no JVD, carotid bruits, or thyromegaly. CHEST EXAMINATION: Trachea is central. Symmetrical expansion. Lung hi clear to auscultation and percussion. CARDIAC: Normal S1, S2 with no gallops. No murmurs ABDOMEN: Soft. Bowel sounds normal. No organomegaly. No abdominal bruits. Extremities: reveal no edema. No clubbing or cyanosis Neurologically awake, alert, oriented x3 with well-coordinated movements. No focal deficits noted Skin: No rash or skin lesions. Psychiatric: Coperative. Nonsuicidal Musculoskeletal: No joint swelling or deformity. Normal range of motion. Vital signs: Vital Signs Temp 98.2 F 08/28/20 05:00 Pulse 59 L 08/28/20 05:00 Resp 16 08/28/20 05:00 BP 103/69 08/28/20 05:00 Pulse Ox 100 08/28/20 05:00 Intake & Output 08/27/20 08/28/20 08/28/20 18:59 06:59 18:59 Intake Total 240 590 Balance 240 590 Intake: Oral 240 590 Other: Voiding Method Bedside Commode Bedside Commode # Voids 3 4 Patient Condition at Discharge: Fair Plan - Discharge Summary New Discharge Prescriptions: No Action No Known Home Medications Discharge Medication List No Known Home Medications 08/25/20 [History] Follow up Appointment(s)/Referral(s): Karolyn Richardson MD [Primary Care Provider] - 1-2 days (Patient to make own follow-up appt. Office closed at time of discharge. ) eRi Dominguez DO [Doctor of Osteopathic Medicine] - 2 Weeks (Patient to make own follow-up appt. Office closed at time of discharge. ) Patient Instructions/Handouts: Spontaneous Pneumothorax (ED), How to Stop Smoking (DC), Moderate Sedation (ED) Activity/Diet/Wound Care/Special Instructions: DISCHARGE INSTRUCTIONS: 1. No driving until physician gives their ok. 2. No lifting, pushing, or pulling more than 10 pounds for 2 weeks. The physician will advise of any restriction changes. 3. Continue pain control per as needed orders. Alternate acetaminophen (Tylenol) and ibuprofen (Motrin/Advil) for pain. 4. Continue with incentive spirometry and splinting until otherwise directed by the physician. 5. Leave chest tube dressing for 48 hours. After that, remove all dressings and shower daily. 6. Routine incision care. No powders, lotions, ointments on incisions. 7. Smoking cessation counseling and program information provided, NO SMOKING Discharge Disposition: HOME SELF-CARE
== END 2020-08-28 12:00 | disposition home or self-care (01) | DRG 200 ==
LOC: EC 21:27 → 5NMEDONC 08-25 01:29
PROVIDERS: ADMIT Hospitalist; ATTEND Hospitalist
PROC: 0W9930Z Drainage of Right Pleural Cavity with Drainage Device, Percutaneous Approach (ICD-10-PCS; principal; 2020-08-24)
DX: J93.83 Other pneumothorax (principal); J98.11 Atelectasis; F17.200 Nicotine dependence, unspecified, uncomplicated; Z20.822 Contact with and (suspected) exposure to COVID-19; F41.9 Anxiety disorder, unspecified; Z71.6 Tobacco abuse counseling; Z87.440 Personal history of urinary (tract) infections; Z86.14 Personal history of Methicillin resistant Staphylococcus aureus infection; Z98.891 History of uterine scar from previous surgery; Z98.890 Other specified postprocedural states; G89.29 Other chronic pain; J93.82 Other air leak
CPT/HCPCS: 36415; 71045; 71046; 80048; 82103; 85025; 85027; 87635; 93005; 96361; 96372; 96374; 96375; 99285

== ENCOUNTER 2020-10-24 09:10 | Emergency (ER) | payer OTHER ==
[2020-10-24] MEDS ORDERED: MAG HYDROX/AL HYDROX/SIMETH 30 ML, HYOSCYAMINE ELIXIR 10 ML, LIDOCAINE VISCOUS 2% 10 ML PO STA ×3 (10:18)
[2020-10-24] MEDS ORDERED: FAMOTIDINE 20 MG/2 ML VIAL IV STA (10:18)
[2020-10-24] MEDS ORDERED: ONDANSETRON 4 MG/2 ML VIAL IVP STA (10:18)
[2020-10-24] MEDS ORDERED: SODIUM CHLORIDE 0.9% 1,000 ML IV STA (10:18)
[2020-10-24] MEDS ORDERED: HYDROmorphone 0.5 MG/0.5 ML SYRINGE IVP STA (10:18)
[2020-10-24 10:32] LABS: Basophils % (A) 0 %; Eosinophils # (A) 0.1 k/uL (0-0.7); Eosinophils % (A) 1 %; HCT 38.2 % (34.0-46.0); HGB 12.8 gm/dL (11.4-16.0); Lymphocytes # (A) 2.6 k/uL (1.0-4.8); Lymphocytes % (A) 25 %; MCH 30.3 pg (25.0-35.0); MCHC 33.4 g/dL (31.0-37.0); MCV 90.6 fL (80.0-100.0); Mean Platelet Volume 8.9; Monocytes # (A) 0.4 k/uL (0-1.0); Monocytes % (A) 4 %; Neutrophils % (A) 67 %; Platelet Count 257 k/uL (150-450); RBC 4.22 m/uL (3.80-5.40); RDW 13.8 % (11.5-15.5); WBC 10.4 k/uL (3.8-10.6)
[2020-10-24 10:47] LABS: ALT 9 U/L (4-34); AST 20 U/L (14-36); African American GFR (CKD) >90 (>60 ml/min/1.73 sqM); Albumin 3.9 g/dL (3.5-5.0); Alkaline Phosphatase 67 U/L (38-126); Amylase 48 U/L (30-110); Anion Gap 7 mmol/L; Blood Urea Nitrogen 6 mg/dL (7-17); Calcium 9.7 mg/dL (8.4-10.2); Carbon Dioxide 25 mmol/L (22-30); Chloride 104 mmol/L (98-107); Glucose 101 mg/dL (74-99); Lipase 46 U/L (23-300); Non-African American GFR(CKD) >90 (>60 ml/min/1.73 sqM); Potassium 3.8 mmol/L (3.5-5.1); Sodium 136 mmol/L (137-145); Total Bilirubin 0.3 mg/dL (0.2-1.3)
[2020-10-24 10:49] LABS: HCG,Qualitative Serum Not Detected
--- NOTE | 2020-10-24 11:16 | US ---
EXAMINATION TYPE: US gallbladder DATE OF EXAM: 10/24/2020 COMPARISON: NONE CLINICAL HISTORY: pain. intermittent epigastric pain, nausea/vomiting for 1 year, more constant withi n the last month EXAM MEASUREMENTS: Liver Length: 18.7 cm Gallbladder Wall: 0.2 cm CBD: 0.4 cm Right Kidney: 10.8 x 4.1 x 4.4 cm *technical limitations due to large amount of overlying bowel content Pancreas: Obscured by bowel gas Liver: enlarged Gallbladder: non mobile hyperechoic area = 0.4cm, possible polyp Evidence for sonographic Lam's sign: no CBD: wnl Right Kidney: wnl IMPRESSION: Hepatomegaly. Nonmobile cholelithiasis.
[2020-10-24 11:53] LABS: Appearance,Urine Cloudy (Clear); Bilirubin,Urine Negative (Negative); Blood,Urine Negative (Negative); Color,Urine Yellow; Glucose,Urine (UA) Negative (Negative); Ketones,Urine 1+ (Negative); Leukocyte Esterase,Urine Moderate (Negative); Mucus,Urine Rare /hpf; Nitrite,Urine Negative (Negative); Protein,Urine Negative (Negative); RBC,Urine 4 /hpf (0-5); Specific Gravity,Urine 1.015 (1.001-1.035); Squamous Epithelial Cell,Urine 5 /hpf (0-4); Urobilinogen,Urine <2.0 mg/dL (<2.0); WBC,Urine 17 /hpf (0-5)
--- NOTE | 2020-10-24 11:59 | CT ---
EXAMINATION TYPE: CT abdomen pelvis w con DATE OF EXAM: 10/24/2020 COMPARISON: None HISTORY: Abdominal pain CT DLP: 646.4 mGycm CONTRAST: CT scan of the abdomen and pelvis is performed without Oral Contrast and with IV Contrast, patient in jected with 100 ml mL of Isovue 300. FINDINGS: LUNG BASES-: No visible nodule. No infiltrate. LIVER/GB: No calcified gallstones. No space occupying hepatic lesion. Biliary tree is of normal ca liber. PANCREAS: No inflammation. No distinct mass. SPLEEN: No splenic enlargement. No lesion seen. ADRENALS: No nodule. No thickening. KIDNEYS/BLADDER: No hydronephrosis. No nephrolithiasis. No distinct renal mass. Urinary bladder g rossly unremarkable. BOWEL: Normal appendix. Normal bowel caliber. No inflammation. GENITAL ORGANS: Bilateral ovarian cystic lesions noted on the right measuring 4 cm and on the left 3 .8 cm. Free fluid is seen within the cul-de-sac. The uterus is unremarkable. LYMPH NODES: No greater than 1cm abdominal or pelvic lymph nodes are appreciated. AORTA: No significant abnormality. OSSEOUS STRUCTURES: No significant abnormality is seen. OTHER: No significant additional abnormality is seen. IMPRESSION: 1. Bilateral ovarian cystic lesions noted on the right measuring 4 cm and on the left 3.8 cm. Free fl uid is seen within the cul-de-sac.
--- NOTE | 2020-10-24 13:23 | ED ---
General Adult HPI - General Chief complaint: GI Bleed Stated complaint: Abdominal Pain Time Seen by Provider: 10/24/20 09:28 Source: patient, RN notes reviewed Mode of arrival: wheelchair Limitations: no limitations - History of Present Illness Initial comments: 35-year-old female presents to the emergency room for abdominal pain. Patient has had upper abdominal pain for the past few months on and off. However about a week ago it started worsening. Patient was seen at [facility] 2 days ago and had x-rays which were negative. GI cocktail helped at that time. Patient then started to have worsening symptoms last night again and wanted to be seen in our facility today. Patient reports she did call her GI doctor but cannot get in until November. Patient also has had some nausea vomiting since last night and did have one episode of blood-streaked vomit. Otherwise no other blood in vomit. Patient was discharged home with antibiotic for UTI however no antacid or nausea medicine. Patient has no other complaints at this time including shortness of breath, chest pain, abdominal pain, nausea or vomiting, headache, or visual changes. - Related Data Previous Rx's Medication Instructions Recorded Ondansetron [Zofran ODT] 4 mg PO Q8HR PRN #15 tab 10/24/20 Pantoprazole [Protonix] 40 mg PO DAILY #14 tablet. 10/24/20 Allergies Allergy/AdvReac Type Severity Reaction Status Date / Time No Known Allergies Allergy Verified 10/24/20 09:56 Review of Systems ROS Statement: Those systems with pertinent positive or pertinent negative responses have been documented in the HPI. ROS Other: All systems not noted in ROS Statement are negative. Past Medical History Past Medical History: Skin Disorder, Syncope Additional Past Medical History / Comment(s): 03-07-16 RT AXILLARY ABCESS.02/03/15 Pt admitted to [facility] ER with abscess in L armpit. Pt has had extensive surgery in the past for this abscess but it has come back. Pt was on clindamycin about 2 weeks ago. She is admitted with hidadenitis suppurativa. Other HX: L/R axillae hidradenitis with ABX and surgical txs, syncopy, UTI, chronic pain. History of Any Multi-Drug Resistant Organisms: MRSA Date of last positivie culture/infection: 12/23/2014 MDRO Source:: left axilla Past Surgical History: Section Additional Past Surgical History / Comment(s): R axillary abscess (hidradenitis suppuriativa) removal, L axillary abscess (hidradenitis suppurativa) surgery- large excision with wound vac, sweat glands removed.03-07-16 I&D RT AXILLARY ABCESS. Past Anesthesia/Blood Transfusion Reactions: No Reported Reaction Additional Past Anesthesia/Blood Transfusion Reaction / Comment(s): Pt received blood without reaction after 1st childbirth. Past Psychological History: Anxiety Smoking Status: Current every day smoker Past Alcohol Use History: Occasional Past Drug Use History: None Reported - Past Family History Father Family Medical History: No Reported History Additional Family Medical History / Comment(s): Father is healthy Mother Family Medical History: No Reported History Additional Family Medical History / Comment(s): Mother is healthy General Exam Limitations: no limitations General appearance: alert, in no apparent distress Head exam: Present: atraumatic Eye exam: Present: normal appearance, PERRL, EOMI. Absent: scleral icterus ENT exam: Present: normal exam, mucous membranes moist Neck exam: Present: normal inspection, full ROM. Absent: tenderness Respiratory exam: Present: normal lung sounds bilaterally. Absent: respiratory distress, wheezes Cardiovascular Exam: Present: regular rate, normal rhythm, normal heart sounds GI/Abdominal exam: Present: soft, normal bowel sounds. Absent: distended, tenderness Neurological exam: Present: alert Course Vital Signs 10/24/20 10/24/20 10/24/20 09:18 11:26 13:27 Temperature 98.5 F 98.4 F Pulse Rate 64 70 56 L Respiratory 18 18 16 Rate Blood Pressure 133/85 124/78 105/68 O2 Sat by Pulse 100 99 98 Oximetry Medical Decision Making - Medical Decision Making vitals are stable. HPI and physical exam as documented. Patient well-appearing although does have some abdominal tenderness notably in the epigastric region. No right upper quadrant tenderness. Negative Lam sign. No lower abdominal tenderness. CBC is unremarkable as well as CMP. Ultrasound of the gallbladder showed a non-mobile cholelithiasis without sonographic Lam sign. CT abdomen and pelvis revealed bilateral ovarian cystic lesions noted on the right and left measuring up to 4 cm. She is not having any pain in the lower abdomen. At this time patient was reevaluated after pain medication and had significant improvement in symptoms. At this time patient is stable for discharge home. We will treat with Protonix and Zofran. I will give her on-call surgery name as she may get in earlier. If she has worsening symptoms she is aware she should return to the emergency room. - Lab Data Result diagrams: 10/24/20 10:21 10/24/20 10:21 Lab Results 10/24/20 10/24/20 10/24/20 Range/Units 10:21 10:21 10:21 WBC 10.4 (3.8-10.6) k/uL RBC 4.22 (3.80-5.40) m/uL Hgb 12.8 (11.4-16.0) gm/dL Hct 38.2 (34.0-46.0) % MCV 90.6 (80.0-100.0) fL MCH 30.3 (25.0-35.0) pg MCHC 33.4 (31.0-37.0) g/dL RDW 13.8 (11.5-15.5) % Plt Count 257 (150-450) k/uL MPV 8.9 Neutrophils % 67 % Lymphocytes % 25 % Monocytes % 4 % Eosinophils % 1 % Basophils % 0 % Neutrophils # 7.0 (1.3-7.7) k/uL Lymphocytes # 2.6 (1.0-4.8) k/uL Monocytes # 0.4 (0-1.0) k/uL Eosinophils # 0.1 (0-0.7) k/uL Basophils # 0.0 (0-0.2) k/uL Sodium 136 L (137-145) mmol/L Potassium 3.8 (3.5-5.1) mmol/L Chloride 104 (98-107) mmol/L Carbon Dioxide 25 (22-30) mmol/L Anion Gap 7 mmol/L BUN 6 L (7-17) mg/dL Creatinine 0.73 (0.52-1.04) mg/dL Est GFR (CKD-EPI)AfAm >90 (>60 ml/min/1.73 sqM) Est GFR (CKD-EPI)NonAf >90 (>60 ml/min/1.73 sqM) Glucose 101 H (74-99) mg/dL Plasma Lactic Acid Hua (0.7-2.0) mmol/L Calcium 9.7 (8.4-10.2) mg/dL Total Bilirubin 0.3 (0.2-1.3) mg/dL AST 20 (14-36) U/L ALT 9 (4-34) U/L Alkaline Phosphatase 67 (38-126) U/L Total Protein 7.0 (6.3-8.2) g/dL Albumin 3.9 (3.5-5.0) g/dL Amylase 48 (30-110) U/L Lipase 46 (23-300) U/L HCG, Qual Not Detected Urine Color Yellow Urine Appearance Cloudy H (Clear) Urine pH 8.0 (5.0-8.0) Ur Specific [place] 1.015 (1.001-1.035) Urine Protein Negative (Negative) Urine Glucose (UA) Negative (Negative) Urine Ketones 1+ H (Negative) Urine Blood Negative (Negative) Urine Nitrite Negative (Negative) Urine Bilirubin Negative (Negative) Urine Urobilinogen <2.0 (<2.0) mg/dL Ur Leukocyte Esterase Moderate H (Negative) Urine RBC 4 (0-5) /hpf Urine WBC 17 H (0-5) /hpf Ur Squamous Epith Cells 5 H (0-4) /hpf Urine Mucus Rare H (None) /hpf 10/24/20 Range/Units 10:21 WBC (3.8-10.6) k/uL RBC (3.80-5.40) m/uL Hgb (11.4-16.0) gm/dL Hct (34.0-46.0) % MCV (80.0-100.0) fL MCH (25.0-35.0) pg MCHC (31.0-37.0) g/dL RDW (11.5-15.5) % Plt Count (150-450) k/uL MPV Neutrophils % % Lymphocytes % % Monocytes % % Eosinophils % % Basophils % % Neutrophils # (1.3-7.7) k/uL Lymphocytes # (1.0-4.8) k/uL Monocytes # (0-1.0) k/uL Eosinophils # (0-0.7) k/uL Basophils # (0-0.2) k/uL Sodium (137-145) mmol/L Potassium (3.5-5.1) mmol/L Chloride (98-107) mmol/L Carbon Dioxide (22-30) mmol/L Anion Gap mmol/L BUN (7-17) mg/dL Creatinine (0.52-1.04) mg/dL Est GFR (CKD-EPI)AfAm (>60 ml/min/1.73 sqM) Est GFR (CKD-EPI)NonAf (>60 ml/min/1.73 sqM) Glucose (74-99) mg/dL Plasma Lactic Acid Hua 1.1 (0.7-2.0) mmol/L Calcium (8.4-10.2) mg/dL Total Bilirubin (0.2-1.3) mg/dL AST (14-36) U/L ALT (4-34) U/L Alkaline Phosphatase (38-126) U/L Total Protein (6.3-8.2) g/dL Albumin (3.5-5.0) g/dL Amylase (30-110) U/L Lipase (23-300) U/L HCG, Qual Urine Color Urine Appearance (Clear) Urine pH (5.0-8.0) Ur Specific [place] (1.001-1.035) Urine Protein (Negative) Urine Glucose (UA) (Negative) Urine Ketones (Negative) Urine Blood (Negative) Urine Nitrite (Negative) Urine Bilirubin (Negative) Urine Urobilinogen (<2.0) mg/dL Ur Leukocyte Esterase (Negative) Urine RBC (0-5) /hpf Urine WBC (0-5) /hpf Ur Squamous Epith Cells (0-4) /hpf Urine Mucus (None) /hpf Disposition Clinical Impression: Abdominal pain, Vomiting, Gallstone Disposition: HOME SELF-CARE Condition: Good Instructions (If sedation given, give patient instructions): Abdominal Pain (ED) Additional Instructions: Take Protonix as directed. Take Zofran for nausea. Try to follow up with Dr. Juárez, you may get in earlier for an endoscopy. Please follow-up with your doctor in one to 2 days. Return to the emergency room for any worsening symp toms. Prescriptions: Pantoprazole [Protonix] 40 mg PO DAILY #14 tablet. Ondansetron [Zofran ODT] 4 mg PO Q8HR PRN #15 tab PRN Reason: Nausea Is patient prescribed a controlled substance at d/c from ED?: No Referrals: David Juárez MD [STAFF PHYSICIAN] - 1-2 days Time of Disposition: 13:20
[2020-10-24 13:27] VITALS: BP 105/68; PULSE 56; RESP 16; TEMP 98.4
[2020-10-24] MEDS ORDERED: ACET/COD 300 MG/30 MG STARTER PACK 6 TAB BTL PO STA (13:41)
== END 2020-10-24 13:48 | disposition home or self-care (01) ==
LOC: EC 09:10
DX: K80.80 Other cholelithiasis without obstruction (principal); F17.200 Nicotine dependence, unspecified, uncomplicated
CPT/HCPCS: 36415; 80053; 82150; 83605; 83690; 85025; 81001; 84703; 87086; 76705; 74177; 99284; 96374; 96375 ×2; 96361; J2405; J1170; Q9967

== ENCOUNTER 2020-11-08 09:14 | Day surgery (SDC) | payer OTHER ==
[2020-11-07 08:27] VITALS: BMI 25.8
[~2020-11-08 09:14] MED LIST: ACETAMINOPHEN TAB 500 MG TAB PO PRN; DEXAMETHASONE SOD PHOSPHATE 4 MG/ML 1 ML VIAL IV ONE; HEPARIN SODIUM,PORCINE/PF 5,000 UNIT/0.5 ML SYRINGE SQ PRN; LACTATED RINGERS 1,000 ML IV SCH; LIDOCAINE 1% (10MG/ML) FOR IV START INTRADERMA PRN; MIDAZOLAM 2 MG/2 ML VIAL IV PRN; ONDANSETRON 4 MG/2 ML VIAL IVP ONE; fentaNYL (PF) 50 MCG/ML 2 ML AMP IVP PRN
--- NOTE | 2020-11-08 09:38 | P.GSHP ---
History of Present Illness H&P Date: 11/08/20 Chief Complaint: Right upper quadrant pain This a 35-year-old female who presents today for laparoscopic cholecystectomy. She's had complaints of pain. She is found to have gallstones Past Medical History Past Medical History: Skin Disorder, Syncope Additional Past Medical History / Comment(s): Pt has had extensive surgery in the past for this abscess but it has come back. She is admitted with hidadeniti s suppurativa. Other HX: L/R axillae hidradenitis with ABX and surgical txs, syncopy, UTI, chronic pain. GALLBLADDER DISORDER History of Any Multi-Drug Resistant Organisms: MRSA Date of last positivie culture/infection: 12/23/2014 MDRO Source:: left axilla Past Surgical History: Section Additional Past Surgical History / Comment(s): R axillary abscess (hidradenitis suppuriativa) removal, L axillary abscess (hidradenitis suppurativa) surgery- large excision with wound vac, sweat glands removed.03-07-16 I&D RT AXILLARY ABCESS. C-SEC X 2 Past Anesthesia/Blood Transfusion Reactions: No Reported Reaction Additional Past Anesthesia/Blood Transfusion Reaction / Comment(s): Pt received blood without reaction after 1st childbirth. Smoking Status: Current every day smoker - Past Family History Father Family Medical History: No Reported History Additional Family Medical History / Comment(s): Father is healthy Mother Family Medical History: No Reported History Additional Family Medical History / Comment(s): Mother is healthy Medications and Allergies Home Medications Medication Instructions Recorded Confirmed Type Ondansetron [Zofran ODT] 4 mg PO Q8HR PRN #15 tab 10/24/20 11/07/20 Rx Pantoprazole [Protonix] 40 mg PO DAILY #14 tablet. 10/24/20 11/07/20 Rx Allergies Allergy/AdvReac Type Severity Reaction Status Date / Time No Known Allergies Allergy Verified 11/07/20 08:19 Surgical - Exam - General well developed, well nourished, no distress - Eyes PERRL - ENT normal pinna - Neck no masses - Respiratory normal expansion - Cardiovascular Rhythm: regular - Abdomen Abdomen: soft, non tender Assessment and Plan Assessment: Cholelithiasis We'll perform laparoscopic cholecystectomy
[2020-11-08] MEDS ORDERED: BUPIVACAINE (PF) 0.5% 30 ML VIAL SQ ONE ×2 (09:53→10:36)
[2020-11-08] MEDS ORDERED: KETOROLAC 15 MG/ML 1 ML VIAL ONE (10:09)
[2020-11-08] MEDS ORDERED: fentaNYL (PF) 50 MCG/ML 2 ML AMP ONE (10:09)
[2020-11-08] MEDS ORDERED: GLYCOPYRROLATE 0.2 MG/ML 2 ML VIAL ONE (10:09)
[2020-11-08] MEDS ORDERED: ROCURONIUM 10 MG/ML (5 ML VIAL) IV ONE (10:09)
[2020-11-08] MEDS ORDERED: PROPOFOL 10 MG/ML 20 ML VIAL IV ONE (10:09)
[2020-11-08] MEDS ORDERED: NEOSTIGMINE 1 MG/ML 10 ML VIAL ONE (10:09)
[2020-11-08] MEDS ORDERED: MIDAZOLAM 2 MG/2 ML VIAL ONE (10:09)
[2020-11-08] MEDS ORDERED: LIDOCAINE 1% INJ 10MG/ML (20 ML MDV) ONE (10:09)
[2020-11-08] MEDS ORDERED: SUCCINYLCHOLINE CHLORIDE 100 MG/5 ML SYR IV ONE (10:09)
--- NOTE | 2020-11-08 10:54 | P.OP ---
Date of Procedure: 11/08/20 Preoperative Diagnosis: Cholelithiasis Postoperative Diagnosis: Cholelithiasis Procedure(s) Performed: Laparoscopic cholecystectomy Anesthesia: ROMY Surgeon: David Juárez Estimated Blood Loss (ml): 5 Pathology: other (Gallbladder) Condition: stable Disposition: PACU Description of Procedure: The patient was placed on the operating table. The patient received a general endotracheal tube anesthesia. The patients abdomen was prepped and draped in the usual sterile fashion. Through an infraumbilical stab incision, the fascia of the anterior abdominal wall was grasped with a pair of Kochers and then the Veress needle was placed in the peritoneal cavity. Position of the Veress needle was confirmed with positive drop test. The abdomen was then insufflated. After adequate insufflation, the 10 mm trocar was placed in the peritoneal cavity. Following this the laparoscope was placed in the peritoneal cavity. The patient was placed in the head-up, right side up position and then a 5 mm trocar was placed in the right lateral and right subcostal position under direct visualization. A 8 mm trocar was placed in the epigastric position. The gallbladder was grasped in the fundus and infundibulum. Traction on the gallbladder was placed in the lateral and the cephalad positions. The triangle of Calot was visualized.. The cystic duct was bluntly dissected until the union of the cystic duct and common bile duct was seen. A critical view of safety was achieved. The cystic duct was then divided and sealed with the Harmonic scissors. A PDS Endoloop was then placed throughout the cystic duct stump. The cystic artery divided and sealed with the Harmonic scissors. The gallbladder was then removed from the liver bed using Harmonic scissors. The gallbladder was then extracted through the epigastric port site. Operative field was checked for any bleeding spots and Harmonic scissors was used to coagulate the liver bed. The abdomen was irrigated. The trocars were removed. The skin was closed using interrupted 3-0 Vicryl suture. Dermabond dressing were applied. The patient tolerated the procedure well.
[2020-11-08 11:06] VITALS: TEMP 97.2
[2020-11-08] MEDS: HYDROmorphone 0.5 MG/0.5 ML SYRINGE IVP PRN ×3 (11:07→11:51)
[2020-11-08 11:21] VITALS: RESP 16
[2020-11-08 12:59] VITALS: BP 130/73; PULSE 78
== END 2020-11-08 13:17 | disposition home or self-care (01) ==
LOC: OR 09:14
PROVIDERS: ATTEND Surgery
DX: K81.1 Chronic cholecystitis (principal); G89.29 Other chronic pain; F17.210 Nicotine dependence, cigarettes, uncomplicated; L73.2 Hidradenitis suppurativa; Z79.899 Other long term (current) drug therapy; K21.9 Gastro-esophageal reflux disease without esophagitis
CPT/HCPCS: 81025; 88304; 47562; J2250; J1100; J2710; J0690; J2405; J2001; J3010; J1885; J0330; J2704; J1170; J1644

== ENCOUNTER 2020-12-02 21:22 | Inpatient (IN) | payer OTHER ==
--- NOTE | 2020-12-02 22:09 | XR ---
EXAMINATION TYPE: XR chest 2V DATE OF EXAM: 12/02/2020 COMPARISON: NONE HISTORY: Shortness of breath. TECHNIQUE: Frontal and lateral views of the chest are obtained. FINDINGS: There is a moderate right pneumothorax measuring approximately 2 cm near the apex. There is no focal air space opacity, pleural effusion. The cardiac silhouette size is within normal limits. The osseous structures are intact. IMPRESSION: There is a moderate right pneumothorax. Findings were communicated to Dr. Burrows by Dr. Dayton Bauer on December 02, 2020 at 1005 hours.
[2020-12-02] MEDS ORDERED: SODIUM CHLORIDE 0.9% 1,000 ML IV STA (23:26)
[2020-12-02] MEDS ORDERED: NALOXONE 0.4 MG/ML 1 ML VIAL IV PRN (23:27)
--- NOTE | 2020-12-02 23:30 | ED ---
SOB HPI - General Chief Complaint: Shortness of Breath Stated Complaint: NASREEN Time Seen by Provider: 12/02/20 22:10 Source: patient, family Mode of arrival: ambulatory Limitations: no limitations - Related Data Home Medications Medication Instructions Recorded Confirmed No Known Home Medications 12/02/20 12/02/20 Allergies Allergy/AdvReac Type Severity Reaction Status Date / Time No Known Allergies Allergy Verified 12/02/20 23:22 Review of Systems ROS Statement: Those systems with pertinent positive or pertinent negative responses have been documented in the HPI. ROS Other: All systems not noted in ROS Statement are negative. Past Medical History Past Medical History: Skin Disorder, Syncope Additional Past Medical History / Comment(s): Pt has had extensive surgery in the past for this abscess but it has come back. She is admitted with hidadenitis suppurativa. Other HX: L/R axillae hidradenitis with ABX and surgical txs, syncopy, UTI, chronic pain. GALLBLADDER DISORDER, collapsed right lung History of Any Multi-Drug Resistant Organisms: MRSA Date of last positivie culture/infection: 12/23/2014 MDRO Source:: left axilla Past Surgical History: Section Additional Past Surgical History / Comment(s): R axillary abscess (hidradenitis suppuriativa) removal, L axillary abscess (hidradenitis suppurativa) surgery- large excision with wound vac, sweat glands removed.03-07-16 I&D RT AXILLARY ABCESS. C-SEC X 2 Past Anesthesia/Blood Transfusion Reactions: No Reported Reaction Additional Past Anesthesia/Blood Transfusion Reaction / Comment(s): Pt received blood without reaction after 1st childbirth. Past Psychological History: Anxiety Smoking Status: Current every day smoker Past Alcohol Use History: Occasional Past Drug Use History: None Reported - Past Family History Father Family Medical History: No Reported History Additional Family Medical History / Comment(s): Father is healthy Mother Family Medical History: No Reported History Additional Family Medical History / Comment(s): Mother is healthy General Exam Limitations: no limitations Course Vital Signs 12/02/20 21:38 Temperature 98.1 F Pulse Rate 78 Respiratory 22 Rate Blood Pressure 94/61 O2 Sat by Pulse 100 Oximetry Medical Decision Making - Lab Data Result diagrams: 12/03/20 00:18 12/03/20 00:18 - EKG Data -: EKG Interpreted by Me (EKG shows sinus rhythm 69 AL 174 QRS 96 QTc 422) Disposition Clinical Impression: Pneumothorax, right, Pneumothorax, Recurrent pneumothorax Disposition: ADMITTED IP TO THIS HOSP Condition: Good Is patient prescribed a controlled substance at d/c from ED?: No
[2020-12-03] MEDS: ONDANSETRON 4 MG/2 ML VIAL IVP PRN (00:19)
[2020-12-03] MEDS: MORPHINE SULFATE 4 MG/ML SYRINGE IV PRN ×7 (00:19→23:24)
[2020-12-03 00:43] LABS: Basophils % (A) 0 %; Eosinophils # (A) 0.2 k/uL (0-0.7); Eosinophils % (A) 2 %; HCT 34.6 % (34.0-46.0); HGB 11.4 gm/dL (11.4-16.0); Lymphocytes # (A) 3.3 k/uL (1.0-4.8); Lymphocytes % (A) 44 %; MCH 29.3 pg (25.0-35.0); MCHC 33.1 g/dL (31.0-37.0); MCV 88.6 fL (80.0-100.0); Mean Platelet Volume 7.4; Monocytes # (A) 0.4 k/uL (0-1.0); Monocytes % (A) 5 %; Neutrophils # (A) 3.5 k/uL (1.3-7.7); Neutrophils % (A) 46 %; Platelet Count 281 k/uL (150-450); WBC 7.6 k/uL (3.8-10.6)
[2020-12-03 00:52] LABS: INR 0.9 (<1.2); Partial Thromboplastin Time 24.7 sec (22.0-30.0); Prothrombin Time 10.2 sec (9.0-12.0)
[2020-12-03 01:00] LABS: ALT 12 U/L (4-34); AST 23 U/L (14-36); African American GFR (CKD) >90 (>60 ml/min/1.73 sqM); Albumin 3.6 g/dL (3.5-5.0); Alkaline Phosphatase 69 U/L (38-126); Anion Gap 5 mmol/L; Blood Urea Nitrogen 7 mg/dL (7-17); Calcium 9.4 mg/dL (8.4-10.2); Carbon Dioxide 27 mmol/L (22-30); Chloride 103 mmol/L (98-107); Glucose 97 mg/dL (74-99); Magnesium 1.8 mg/dL (1.6-2.3); Non-African American GFR(CKD) >90 (>60 ml/min/1.73 sqM); Sodium 135 mmol/L (137-145); Total Bilirubin 0.3 mg/dL (0.2-1.3); Total Protein 6.8 g/dL (6.3-8.2)
[2020-12-03] MEDS ORDERED: LIDOCAINE 1%-EPI 1:100,000 20 ML VIAL SQ STA (07:19)
--- NOTE | 2020-12-03 07:51 | XR ---
EXAMINATION TYPE: XR chest 1V portable DATE OF EXAM: 12/03/2020 COMPARISON: Prior chest x-ray 12/02/2020 HISTORY: Pneumothorax TECHNIQUE: Single frontal view of the chest is obtained. FINDINGS: Large right pneumothorax is present, pneumothorax has progressed and is estimated at great er than 50%. Cardiac mediastinal silhouette is stable, there is no evident tension. No evident effusi on. IMPRESSION: Right-sided pneumothorax is increased in size as described as compared to prior.
[2020-12-03] MEDS: LORazepam 2 MG/ML INJ IV PRN ×3 (07:58→15:56)
[2020-12-03] MEDS ORDERED: LORazepam 2 MG/ML INJ IV STA (08:04)
--- NOTE | 2020-12-03 08:36 | XR ---
EXAMINATION TYPE: XR chest 1V confirm line [facility] DATE OF EXAM: 12/03/2020 COMPARISON: Chest x-ray 12/03/2020 at earlier time HISTORY: Status post chest tube placement TECHNIQUE: Single frontal view of the chest is obtained. FINDINGS: There is been interval placement of a right-sided thoracic vent. The right-sided pneumotho rax is improved, some basilar atelectatic changes are present. No other significant interval change. IMPRESSION: Interval improvement in patient's pneumothorax, residual pneumothorax is smaller than on prior. There is likely some atelectatic change.
[2020-12-03] MEDS: KETOROLAC 15 MG/ML 1 ML VIAL IVP SCH ×4 (09:12→23:27)
[2020-12-03] MEDS: LORazepam 0.5 MG TAB PO PRN (11:15)
[2020-12-03] MEDS ORDERED: ACETAMINOPHEN TAB 325 MG TAB PO PRN (12:26)
--- NOTE | 2020-12-03 12:44 | P.GSCN ---
History of Present Illness Consult date: 12/03/20 Reason for Consult: Spontaneous right pneumothorax. Requesting physician: Parker Rivero History of present illness: This is a 35-year-old female patient who follows with Dr. Richardson for her primary care service on an outpatient basis. She has a past medical history significant for chronic ongoing tobacco dependence, previous spontaneous right pneumothorax in August 2020 and hydradenitis suppurativa with bilateral axillary abscesses. She presented here to [facility] emergency room with compla ints of shortness of breath and right-sided chest pain. She did report some episodes of nausea but denies any complaints of vomiting, recent trauma, fever, chills, constipation, diarrhea, palpitations, presyncope or syncope. The patient reports that she presented to the emergency department here due to her experience from her last spontaneous pneumothorax, she felt like the symptoms were the same. A chest x-ray was completed which showed a moderate right-sided pneumothorax. A 12-lead EKG was completed which showed normal sinus rhythm with a heart rate of 69 BPM. Due to the patient's presenting symptoms and history of spontaneous right pneumothorax consult was placed to Dr. Scar Lee from ardiothoracic surgery service. A repeat chest x-ray was completed this morning which demonstrated a 50% right-sided pneumothorax, and due to these findings a right-sided Thoravent was placed by the ER physician. Review of Systems A 14 point review of systems was completed was negative except as mentioned in the HPI. Past Medical History Past Medical History: Skin Disorder, Syncope Additional Past Medical History / Comment(s): Pt has had extensive surgery in the past for this abscess but it has come back. She is admitted with hidadenitis suppurativa. Other HX: L/R axillae hidradenitis with ABX and surgical txs, syncopy, UTI, chronic pain. GALLBLADDER DISORDER, pneumothorax right lung in August 2020. History of Any Multi-Drug Resistant Organisms: MRSA Year Discovered:: 12/23/2014 MDRO Source:: right axilla Past Surgical History: Section, Cholecystectomy Additional Past Surgical History / Comment(s): R axillary abscess (hidradenitis suppuriativa) removal, L axillary abscess (hidradenitis suppurativa) surgery- large excision with wound vac, sweat glands removed.03-07-16 I&D RT AXILLARY ABCESS. C-SEC X 2 Past Anesthesia/Blood Transfusion Reactions: No Reported Reaction Additional Past Anesthesia/Blood Transfusion Reaction / Comm: Pt received blood without reaction after 1st childbirth. Past Psychological History: Anxiety Smoking Status: Current every day smoker Past Alcohol Use History: Occasional Past Drug Use History: None Reported - Past Family History Father Family Medical History: No Reported History Additional Family Medical History / Comment(s): Father is healthy Mother Family Medical History: No Reported History Additional Family Medical History / Comment(s): Mother is healthy Medications and Allergies Home Medications Medication Instructions Recorded Confirmed Type No Known Home Medications 12/02/20 12/02/20 History Allergies Allergy/AdvReac Type Severity Reaction Status Date / Time No Known Allergies Allergy Verified 12/02/20 23:22 Surgical - Exam Vital Signs Temp Pulse Resp BP Pulse Ox 98.1 F 78 22 94/61 100 12/02/20 21:38 12/02/20 21:38 12/02/20 21:38 12/02/20 21:38 12/02/20 21:38 - General well developed, well nourished, no distress, moderate pain (To her right Thoravent insertion site.) - Eyes PERRL, normal ocular movement, no pale, no icteric - ENT normal pinna, normal nares, normal mucosa, no hearing loss, no congestion - Neck Neck is supple, no lymphadenopathy. no masses, no bruits, trachea midline, no venous distension - Respiratory Lung sounds essentially clear throughout, diminished her right lower lobe. Respirations are symmetrical and nonlabored. Right chest Thoravent in place with positive air leak present. Nonocclusive In place. - Cardiovascular Regular rhythm and rate. S1 and S2 present, negative for S3, gallop or murmur. Peripheral pulses palpable. No edema present. - Abdomen Abdomen is soft, nontender and nondistended. Active bowel sounds present in all 4 abdominal quadrants. No guarding or rigidity. No organomegaly appreciated. - Integumentary no rash, no growths, no abnormal pigmentation - Neurologic Cranial nerves II through XII intact. No focal deficits. normal coordination, normal sensation - Musculoskeletal normal gait, normal posture - Psychiatric oriented to time, oriented to person, oriented to place, speech is normal, memory intact Results - Labs 12/03/20 00:18 12/03/20 00:18 Abnormal Lab Results - Last 24 Hours (Table) 12/03/20 Range/Units 00:18 Sodium 135 L (137-145) mmol/L Diabetes panel 12/03/20 Range/Units 00:18 Sodium 135 L (137-145) mmol/L Potassium 4.0 (3.5-5.1) mmol/L Chloride 103 (98-107) mmol/L Carbon Dioxide 27 (22-30) mmol/L BUN 7 (7-17) mg/dL Creatinine 0.61 (0.52-1.04) mg/dL Glucose 97 (74-99) mg/dL Calcium 9.4 (8.4-10.2) mg/dL AST 23 (14-36) U/L ALT 12 (4-34) U/L Alkaline Phosphatase 69 (38-126) U/L Total Protein 6.8 (6.3-8.2) g/dL Albumin 3.6 (3.5-5.0) g/dL Calcium panel 12/03/20 Range/Units 00:18 Calcium 9.4 (8.4-10.2) mg/dL Albumin 3.6 (3.5-5.0) g/dL Pituitary panel 12/03/20 Range/Units 00:18 Sodium 135 L (137-145) mmol/L Potassium 4.0 (3.5-5.1) mmol/L Chloride 103 (98-107) mmol/L Carbon Dioxide 27 (22-30) mmol/L BUN 7 (7-17) mg/dL Creatinine 0.61 (0.52-1.04) mg/dL Glucose 97 (74-99) mg/dL Calcium 9.4 (8.4-10.2) mg/dL Adrenal panel 12/03/20 Range/Units 00:18 Sodium 135 L (137-145) mmol/L Potassium 4.0 (3.5-5.1) mmol/L Chloride 103 (98-107) mmol/L Carbon Dioxide 27 (22-30) mmol/L BUN 7 (7-17) mg/dL Creatinine 0.61 (0.52-1.04) mg/dL Glucose 97 (74-99) mg/dL Calcium 9.4 (8.4-10.2) mg/dL Total Bilirubin 0.3 (0.2-1.3) mg/dL AST 23 (14-36) U/L ALT 12 (4-34) U/L Alkaline Phosphatase 69 (38-126) U/L Total Protein 6.8 (6.3-8.2) g/dL Albumin 3.6 (3.5-5.0) g/dL - Imaging Chest x-ray: report reviewed, image reviewed US - kidney/bladder: image reviewed Assessment and Plan Assessment: 1. Recurrent spontaneous right-sided pneumothorax, history of previous right- sided pneumothorax in August 2020, status post Thoravent placement by the emergency room physician 2. Current ongoing tobacco dependence 3. History of hydradenitis supra-[place] suppurativa Plan: Patient was seen and examined at her bedside in the emergency room Department. Her chart diagnostics reviewed. She was seen and examined by Dr. Scar Carpenter from cardiothoracic surgery. A right Thoravent was placed by the emergency room physician. We will connect the Thoravent to low continuous wall suction at -20 cm H2O. Continue to monitor for air leak resolution. We will order a computed tomography scan of her chest without contrast. Treatment options were discussed with the patient including right thoracoscopic procedure with wedge resection and mechanical pleurodesis. Risks and benefits of the thoracoscopic procedure were discussed with the patient by Dr. Scar Carpenter and her questions were answered to the best of his ability. The patient knowing and understanding the risks of the thoracoscopic procedure wishes to proceed with the surgical option with timing of the procedure to follow. The importance of risk modification including smoking cessation was discussed with the patient. We will order an incentive spirometry with use 10 times every hour while awake. The patient can be started on a diet per the cardiothoracic surgery standpoint. Pain control per current when necessary orders, Toradol and acetaminophen added to the regimen. Continue to monitor daily chest x-rays with further recommendations to follow based on patient's clinical course. Increase activity as tolerated. Medical management other comorbidities per primary care service recommendations. Thank you for this consult and we look for to working with you in the care of this patient. Time with Patient: Greater than 30
--- NOTE | 2020-12-03 14:44 | CT ---
EXAMINATION TYPE: CT chest wo con DATE OF EXAM: 12/03/2020 COMPARISON: 07/30/2014 HISTORY: Spontaneous right pneumothorax CT DLP: 236.2 mGycm Automated exposure control for dose reduction was used. Images obtained from the thoracic inlet to the diaphragm without contrast. There is small right-sided pneumothorax. There is right side anterior chest tube. Chest tube in good position. There is some mild atelectasis right posterior lung field. There is subsegmental atelectasi s left posterior lung base. Heart size is normal. There is no pericardial effusion. There are no franklin r masses. There is no mediastinal adenopathy. The thoracic spine is intact. There is no compression fracture. Sternum is intact. The ribs are intac t. IMPRESSION: Small right-sided pneumothorax approximately 10%. Chest tube in good position. Patchy atelectasis in the posterior right lung field. Atelectasis appears new compared to old exam. No suspicious pulmonary mass.
[2020-12-03] MEDS: HEPARIN SODIUM,PORCINE/PF 5,000 UNIT/0.5 ML SYRINGE SQ SCH ×2 (15:56→23:27)
[2020-12-03] MEDS: NICOTINE 14MG/24HR PATCH TRANSDERM SCH (19:02)
[2020-12-03] MEDS: SODIUM CHLORIDE 0.9% 500 ML 500 ML IV SCH (19:43)
--- NOTE | 2020-12-03 20:07 | HP ---
HISTORY AND PHYSICAL DATE OF SERVICE: 12/03/2020 CHIEF COMPLAINTS: Right-sided chest pain and shortness of breath. HISTORY OF PRESENT ILLNESS: This 35-year-old woman with a past medical history of skin disorders, extensive surgery in the past for abscesses, syncope, history of hydradenitis suppurativa, history of gallbladder disorder, history of MRSA, being followed by Dr. Richardson in the outpatient setting, noted yesterday sudden onset of severe chest pain on the right side and significant shortness of breath. The patient was found to have pneumothorax. Patient had right-sided Thora Vent placement by the ER physician and the chest tube was connected to underwater seal. A repeat CT scan showed only 10% pneumothorax on the right side and Cardiothoracic Surgery is following the patient for possible VATS procedure. There is no history of any fever, rigor or chills at this time. The patient also had a previous history of right-sided pneumothorax. PAST MEDICAL HISTORY: History of hydradenitis suppurativa, history of gallbladder disorder, section, cholecystectomy. MEDICATIONS: None. ALLERGIES: NONE. FAMILY HISTORY: No history of heart disease or strokes in the family. SOCIAL HISTORY: History of smoking. Occasional alcohol intake. REVIEW OF SYSTEMS: ENT: No diminished hearing. No diminished vision. CARDIOVASCULAR SYSTEM: No angina, palpitations. RESPIRATORY SYSTEM: As mentioned earlier. GI: No nausea, vomiting, diarrhea. : No dysuria. NERVOUS SYSTEM: No numbness, weakness. ALLERGY/IMMUNOLOGY: No asthma or hay fever. MUSCULOSKELETAL: As mentioned earlier. HEMATOLOGY/ONCOLOGY: No history of anemia. ENDOCRINE: No history of diabetes or hypothyroidism. CONSTITUTIONAL: As mentioned earlier. DERMATOLOGY: Negative. RHEUMATOLOGY: Negative. PSYCHIATRY: As mentioned earlier. PHYSICAL EXAMINATION: Patient alert and oriented x3. Pulse 61, blood pressure 101/63, respiration 19, temperature 98 degrees, pulse ox 99% on room air. HEENT: Conjunctivae normal. NECK: No jugular venous distention. CARDIOVASCULAR: S1, S2 muffled. RESPIRATION: Breath sounds diminished at the bases. A few scattered rhonchi and crackles. ABDOMEN: Soft, nontender. No mass palpable. LEGS: No edema. No swelling. NERVOUS SYSTEM: Higher functions as mentioned earlier. Moves all 4 limbs. No focal motor or sensory deficit. LYMPHATICS: No lymph node palpable in neck, axillae or groin. SKIN: Thora Vent present on the right side of the chest connected to underwater seal. JOINTS: No active deforming arthropathy. Percent room air. LABS: CBC within normal limits. Sodium 134. ASSESSMENT: 1. Spontaneous right-sided pneumothorax with chest pain and shortness of breath, status post Thora Vent placement. 2. Recurrent pneumothorax on the right. 3. Hyponatremia. 4. History of hidradenitis suppurativa. 5. History of syncope. 6. History of MRSA. 7. History of cholecystectomy. 8. History of anxiety. 9. History of continued ongoing nicotine dependence. RECOMMENDATIONS AND DISCUSSION: In this 35-year-old woman who presented with multiple complex medical issues, we will monitor the patient closely, continue the current medications, symptomatic treatment. Otherwise, chest tube drainage. Closely follow with Cardiothoracic Surgery. has seen the patient. Thoracoscopy and VATS procedure planned by Cardiothoracic Surgery. Further recommendations to follow. Prognosis guarded. A copy of this dictation is being forwarded to Dr. Richardson, who is the primary physician. MMTATIL / CAROLINEN: [id number] / MTDD
[2020-12-04] MEDS: KETOROLAC 15 MG/ML 1 ML VIAL IVP SCH ×3 (05:47→18:11)
[2020-12-04] MEDS: MORPHINE SULFATE 4 MG/ML SYRINGE IV PRN ×5 (05:47→22:25)
--- NOTE | 2020-12-04 07:26 | XR ---
EXAMINATION TYPE: XR chest 1V portable DATE OF EXAM: 12/04/2020 COMPARISON: Chest x-ray 12/03/2020 HISTORY: Chest tube, pneumothorax TECHNIQUE: Single frontal view of the chest is obtained. FINDINGS: Right-sided thoracic vent remains in place. The pneumothorax has resolved. There is overly ing tubing. There is improvement in aeration. Cardiac mediastinal silhouette is within normal limits. No evident effusion. IMPRESSION: Resolution of patient's right-sided pneumothorax.
--- NOTE | 2020-12-04 10:01 | P.PN ---
Subjective Progress Note Date: 12/04/20 Principal diagnosis: Spontaneous right pneumothorax. Past medical history significant for chronic ongoing tobacco dependence, previous spontaneous right pneumothorax in August 2020, treated with right Thoravent and hydradenitis suppurativa with bilateral axillary abscesses. Status post day #1 placement of right sided Thoravent by the emergency room physician. The patient was seen in follow-up today at her bedside on the observation unit. Currently she is laying in bed, is awake, alert and oriented 3 and is in no acute apparent distress. She denies any complaints of shortness of breath or chest pain at this time. She reports that her pain is much more controlled today and she is feeling much better than yesterday. Oxygen saturation are 99% on room air and she is achieving 2500 mL on her incentive spirometry with encouragement. Right Thoravent chest tube remains in place to low continuous wall suction at -20 cm H2O. No air leak is present. No drainage is present. A repeat chest x-ray was completed this morning which demonstrated resolution of her right-sided pneumothorax. She is been afebrile the last 24 hours. No new concerns. Objective - Vital Signs Vital signs: Vital Signs Temp 98.1 F 12/04/20 07:48 Pulse 74 12/04/20 07:48 Resp 17 12/04/20 07:48 BP 107/62 12/04/20 07:48 Pulse Ox 100 12/04/20 07:48 Intake & Output 12/03/20 12/04/20 12/04/20 18:59 06:59 18:59 Intake Total 720 Balance 720 Weight 66.678 kg Intake: Oral 720 Other: # Voids 1 1 - Exam CONSTITUTIONAL: Lying in bed on the observation unit, appears comfortable, cooperative, no apparent acute distress. HEENT: Neck is supple, no JVD, no lymphadenopathy. RESPIRATORY: Lungs sounds essentially clear throughout, diminished to his bilateral bases. Respirations are symmetrical and nonlabored. Currently on room air with oxygen saturations 99%. Able to achieve 2500 mL on her incentive spirometry. Strong cough. CARDIOVASCULAR: Regular rhythm and rate. S1 and S2 present, negative for S3, gallop or murmur. GASTROINTESTINAL: Abdomen soft, nontender, nondistended. Active bowel sounds present 4 quadrants. Tolerating diet. No guarding or rigidity. GENITOURINARY: Continues to void. INTEGUMENTARY: Skin is warm and dry with no evidence of clubbing or cyanosis. NEUROLOGIC: Cranial nerves II through XII intact. No focal deficits. MUSKULOSKELETAL: Able to move all extremities, strength equal bilaterally. PSYCHIATRIC: Alert and oriented to person place and time, appropriate affect, intact judgment and insight. INVASIVE LINES AND TUBES: Right chest Thoravent in place to low continuous wall suction -20 cm H2O. No air leak is present. No drainage is present. - Allied health notes Allied health notes reviewed: nursing - Labs CBC & Chem 7: 12/03/20 00:18 12/03/20 00:18 - Imaging and Cardiology Chest x-ray: report reviewed, image reviewed Assessment and Plan Assessment: 1. Recurrent spontaneous right-sided pneumothorax, history of previous right- sided pneumothorax in August 2020, status post Thoravent placement by the emergency room physician 2. Current ongoing tobacco dependence 3. History of hydradenitis supra-[place] suppurativa Plan: 1. Keep her right chest Thoravent in place and to low continuous wall suction - 20 cm H2O. Continue to monitor for airleak. 2. Encourage use of her incentive spirometry 10 times every hour while awake. 3. Pain management per current when necessary orders. 4. GI and DVT prophylaxis. 5. Medical management and other comorbidities per primary care service. 6. Dr. Carpenter met with the patient yesterday, discussed treatment options with the patient's including right thoracoscopic surgery with wedge resection and mechanical pleurodesis. Timing on surgery to follow. 7. More recommendations to follow based on patient's clinical course. Time with Patient: Greater than 30
[2020-12-04] MEDS: PANTOPRAZOLE 40 MG TABLET PO SCH (10:07)
[2020-12-04] MEDS: NICOTINE 14MG/24HR PATCH TRANSDERM SCH (10:07)
[2020-12-04] MEDS: HEPARIN SODIUM,PORCINE/PF 5,000 UNIT/0.5 ML SYRINGE SQ SCH ×2 (10:07→18:13)
[2020-12-04 10:14] LABS: Basophils % (A) 0 %; Eosinophils # (A) 0.1 k/uL (0-0.7); Eosinophils % (A) 2 %; HCT 34.6 % (34.0-46.0); Lymphocytes # (A) 2.4 k/uL (1.0-4.8); Lymphocytes % (A) 48 %; MCH 28.7 pg (25.0-35.0); MCHC 31.7 g/dL (31.0-37.0); MCV 90.6 fL (80.0-100.0); Mean Platelet Volume 7.5; Monocytes # (A) 0.2 k/uL (0-1.0); Monocytes % (A) 4 %; Neutrophils # (A) 2.2 k/uL (1.3-7.7); Neutrophils % (A) 43 %; Platelet Count 250 k/uL (150-450); RBC 3.82 m/uL (3.80-5.40); RDW 12.9 % (11.5-15.5); WBC 5.2 k/uL (3.8-10.6)
[2020-12-04] MEDS: LORazepam 2 MG/ML INJ IV PRN (10:34)
[2020-12-04 10:40] LABS: African American GFR (CKD) >90 (>60 ml/min/1.73 sqM); Anion Gap 5 mmol/L; Blood Urea Nitrogen 5 mg/dL (7-17); Calcium 9.2 mg/dL (8.4-10.2); Carbon Dioxide 28 mmol/L (22-30); Chloride 103 mmol/L (98-107); Glucose 98 mg/dL (74-99); Non-African American GFR(CKD) >90 (>60 ml/min/1.73 sqM); Potassium 4.4 mmol/L (3.5-5.1); Sodium 136 mmol/L (137-145)
[2020-12-04] MEDS: LORazepam 0.5 MG TAB PO PRN ×2 (13:43→21:00)
--- NOTE | 2020-12-04 18:02 | PN ---
PROGRESS NOTE DATE OF SERVICE: 12/04/2020. This 35-year-old woman was admitted with acute right pneumothorax with history of recurrent pneumothorax. Patient had a chest tube drainage at this time. The patient is ( ) cardiothoracic surgery and is recommending Thora-Vent in place to low continuous suction, incentive spirometry, possible right thoracoscopic surgery and wedge resection and mechanical pleurodesis. No chest pain. No palpitations. No fever. PHYSICAL EXAMINATION: Alert and oriented x3. Pulse 76, blood pressure 101/60, respiration 18, temperature 98.2, pulse ox 97% on room air. HEENT: Conjunctivae normal. Oral mucosa moist. NECK: No jugular venous distention. No lymph node enlargement. CARDIOVASCULAR: S1, S2, muffled. No S3, no S4, RESPIRATORY: Diminished breath sounds at the bases. A few scattered rhonchi. Breath sounds are diminished on the right side. ABDOMEN: Soft, nontender. LEGS: No edema, no swelling. NERVOUS SYSTEM: No focal deficits. Right-sided chest tube present. Air leak also present. LAB STUDIES: WBC 5.8, hemoglobin 11, sodium 136. ASSESSMENT: 1. Acute right spontaneous pneumothorax with shortness of breath and chest pain status post Thora-Vent placement. 2. History of recurrent pneumothorax on the right. 3. Hypernatremia. 4. History of hidradenitis suppurativa. 5. History of syncope. 6. History of MRSA. 7. History of cholecystectomy. 8. History of anxiety. 9. Continued ongoing nicotine dependence. RECOMMENDATIONS: Recommend to continue current management, continue symptomatic treatment. Otherwise, continue with chest tube drainage. Closely follow with Cardiothoracic Surgery. Otherwise, repeat labs, possible thoracoscopic surgery. Guarded prognosis. Further recommendations to follow. MMODL / IJN: [id number] /
[2020-12-04] MEDS: SODIUM CHLORIDE 0.9% 500 ML 500 ML IV SCH (19:45)
[2020-12-05] MEDS: KETOROLAC 15 MG/ML 1 ML VIAL IVP SCH ×5 (00:17→23:11)
[2020-12-05] MEDS: HEPARIN SODIUM,PORCINE/PF 5,000 UNIT/0.5 ML SYRINGE SQ SCH ×4 (00:17→23:09)
[2020-12-05] MEDS: MORPHINE SULFATE 4 MG/ML SYRINGE IV PRN ×4 (03:32→20:43)
[2020-12-05] MEDS: LORazepam 0.5 MG TAB PO PRN (06:08)
[2020-12-05 07:48] LABS: Basophils % (A) 0 %; Eosinophils # (A) 0.2 k/uL (0-0.7); Eosinophils % (A) 3 %; HCT 34.9 % (34.0-46.0); HGB 11.2 gm/dL (11.4-16.0); Lymphocytes # (A) 2.4 k/uL (1.0-4.8); Lymphocytes % (A) 44 %; MCH 29.1 pg (25.0-35.0); MCHC 31.9 g/dL (31.0-37.0); Mean Platelet Volume 7.7; Monocytes # (A) 0.2 k/uL (0-1.0); Monocytes % (A) 5 %; Neutrophils # (A) 2.5 k/uL (1.3-7.7); Neutrophils % (A) 46 %; Platelet Count 246 k/uL (150-450); RBC 3.84 m/uL (3.80-5.40); RDW 12.9 % (11.5-15.5); WBC 5.4 k/uL (3.8-10.6)
[2020-12-05] MEDS: NICOTINE 14MG/24HR PATCH TRANSDERM SCH (07:50)
[2020-12-05] MEDS: PANTOPRAZOLE 40 MG TABLET PO SCH (07:50)
[2020-12-05 08:03] LABS: African American GFR (CKD) >90 (>60 ml/min/1.73 sqM); Anion Gap 4 mmol/L; Blood Urea Nitrogen 6 mg/dL (7-17); Calcium 9.1 mg/dL (8.4-10.2); Carbon Dioxide 26 mmol/L (22-30); Chloride 106 mmol/L (98-107); Glucose 79 mg/dL (74-99); Non-African American GFR(CKD) >90 (>60 ml/min/1.73 sqM); Potassium 4.1 mmol/L (3.5-5.1); Sodium 136 mmol/L (137-145)
[2020-12-05] MEDS ORDERED: LACTATED RINGERS 1,000 ML IV ONE (11:50)
[2020-12-05] MEDS: ONDANSETRON 4 MG/2 ML VIAL IVP PRN (12:01)
[2020-12-05] MEDS ORDERED: fentaNYL (PF) 50 MCG/ML 2 ML AMP IVP ONE (12:17)
[2020-12-05] MEDS ORDERED: MIDAZOLAM 2 MG/2 ML VIAL IVP ONE (12:17)
[2020-12-05] MEDS ORDERED: PHENYLEPHRINE-0.9% NACL SYG 1,000 MCG/10 ML SYRINGE ONE (12:51)
[2020-12-05] MEDS ORDERED: GLYCOPYRROLATE 0.2 MG/ML 2 ML VIAL ONE (12:51)
[2020-12-05] MEDS ORDERED: fentaNYL (PF) 50 MCG/ML 2 ML AMP ONE (12:51)
[2020-12-05] MEDS ORDERED: NEOSTIGMINE 1 MG/ML 10 ML VIAL ONE (12:51)
[2020-12-05] MEDS ORDERED: PROPOFOL 10 MG/ML 20 ML VIAL IV ONE (12:51)
[2020-12-05] MEDS ORDERED: SUCCINYLCHOLINE CHLORIDE 100 MG/5 ML SYR IV ONE (12:51)
[2020-12-05] MEDS ORDERED: LIDOCAINE 1% INJ 10MG/ML (20 ML MDV) ONE (12:51)
[2020-12-05] MEDS ORDERED: MIDAZOLAM 2 MG/2 ML VIAL ONE (12:51)
[2020-12-05] MEDS ORDERED: HYDROmorphone (PF) 1 MG/ML ONE (12:51)
[2020-12-05] MEDS ORDERED: ROCURONIUM 10 MG/ML (5 ML VIAL) IV ONE (12:51)
--- NOTE | 2020-12-05 14:11 | P.ANPRN ---
Procedure Note - Anesthesia - Invasive Line Left Arterial Line Time Out Performed: Yes Date of Procedure: 12/05/20 Location of Patient: PreOp Preparation: Sterile Prep, Sterile Dressing Arterial Line Location: Radial Ultrasound Used: No Purpose - Visualization and Identification of Vasculature: No Needle Guage: 20G Image Stored and Saved: No Narrative: Radial arterial placement per sterile protocol utilized. Angiocatheter placed over guidewire, guidewire removed intact.
[2020-12-05] MEDS ORDERED: diphenhydrAMINE 50 MG/ML 1 ML VIAL IVP ONE (14:59)
[2020-12-05] MEDS ORDERED: HYDROmorphone 0.5 MG/0.5 ML SYRINGE IVP ONE (15:02)
--- NOTE | 2020-12-05 15:08 | OP ---
OPERATIVE REPORT DATE OF SURGERY: 12/05/2020. SURGEON: Dr. Navin Lee. ELASTIC ATTACHER ZIGZAG: RAVINDER Babcock PREOPERATIVE DIAGNOSIS: Recurrent right-sided spontaneous pneumothorax. POSTOPERATIVE DIAGNOSIS: Presence of several blebs, emphysematous in nature, in the right upper lobe. PROCEDURE: 1. Fiberoptic bronchoscopy. 2. Right video thoracoscopic wedge resection of the right upper lobe as well as mechanical pleurodesis. INDICATION FOR SURGERY: The patient is a pleasant 35-year-old lady who got admitted with right-sided spontaneous pneumothorax and had a Thoravent in place. This is a second episode, as in August she had the same thing happening and it resolved with conservative treatment with a Thoravent without surgery. In view of the fact that this is a recurrence, surgery was offered for hopefully decreasing the chances of recurrence. A CT scan done during her first spontaneous pneumothorax episode showed multiple edge blebs in the right upper lobe and a small apical bleb. The risks, benefits and alternatives were discussed with her, including the risk of prolonged air leak. She understood it and agreed to proceed. DESCRIPTION OF THE PROCEDURE: The patient was brought to the operating room, where general double-lumen endotracheal intubation was performed easily. Fiberoptic bronchoscopy confirmed correct positioning of the tube. Sequential compression stockings were applied to both lower extremities. Subsequently the patient was placed in the left lateral decubitus position and all pressure points supported as well as placement of an axillary roll. Fiberoptic bronchoscopy confirmed still proper positioning of the tube. The chest and abdomen and back were prepped and draped using ChloraPrep. The patient received 2 grams of cefazolin intravenously. The right lung was dropped. The table was flexed and initial access was obtained via a 1 cm incision in the seventh intercostal space posterior axillary line. There were no lung adhesions. Exploration revealed multiple blebs all along the edge of the right upper lobe by the major fissure. Anterior as well as posterior incisions were made for triangulation, each around 12 mm in diameter at the level of the fifth intercostal space anterior axillary line and posteriorly. With that, we proceeded exploring and there were no obvious blebs. I tried to elicit a leak. The patient had no air leak today from her Thoravent and we could not elicit any air leak. There was suspicion of a small amount of air coming from one of the blebs on the edge of the upper lobe. It was obvious that we needed to resect those blebs, and they were all taken by multiple firing of a reinforced 60 mm MANUEL parallel to the edge of the right upper lobe and parallel to the major fissure. That staple line was hemostatic. Testing again under water of the whole right upper lobe and staple line showed no leak. There were no other blebs or areas suspicious in the middle lobe or the lower lobe. With that, a 28 mm chest tube was placed via the anterior axillary line port, and the other two ports were closed using Vicryl 2-0 for the fascia, Vicryl 3-0 for the subcutaneous tissue and Vicryl 4-0 for the skin in subcuticular position. The lung had been re-expanded under vision eccentric expansion. Patient tolerated the procedure well, was extubated in the operating room and taken to the recovery room. MMTATIL / IJN: [id number] /
--- NOTE | 2020-12-05 15:35 | XR ---
EXAMINATION TYPE: XR chest 1V portable DATE OF EXAM: 12/05/2020 COMPARISON: Chest x-ray 12/04/2020 HISTORY: Status post chest tube placement TECHNIQUE: Single frontal view of the chest is obtained. FINDINGS: There is been interval removal of the Thora vent and placement of a right-sided chest tube with the distal tip at the apex of the right hemithorax. Some subsegmental atelectatic changes are p resent bilaterally. Lung lines are low. There is no evident pneumothorax. Cardiac mediastinal silhoue tte is within normal limits. IMPRESSION: Interval chest tube placement as described
[2020-12-05] MEDS ORDERED: DEXTROSE 5%-0.45% NACL 1,000 ML IV SCH (16:30)
[2020-12-05] MEDS: ACETAMINOPHEN IV (For NPO) 1,000 MG in EMPTY BAG 1 BAG IVPB SCH ×2 (17:53→23:11)
--- NOTE | 2020-12-05 18:23 | PN ---
PROGRESS NOTE DATE OF SERVICE: 12/05/2020 This 35-year-old woman who was admitted with right spontaneous pneumothorax underwent fiberoptic bronchoscopy as well as right video thoracoscopy with wedge resection of the right upper lobe as well as mechanical pleurodesis by Dr. Lee. Several blebs of an emphysematous nature in the right upper lobe were noted. No chest pain. No palpitations. No fever. PHYSICAL EXAMINATION: Alert and oriented x3. Pulse 106, blood pressure 139/71, respiration 22, temperature normal, pulse ox 99% on room air. HEENT: Conjunctivae normal. NECK: No jugular venous distention. CARDIOVASCULAR: S1, S2 muffled. RESPIRATION: Breath sounds diminished at the bases. A few scattered rhonchi. ABDOMEN: Soft. NERVOUS SYSTEM: No focal deficit. LAB STUDIES: WBC 5.4, hemoglobin 11.2. Sodium 136. ASSESSMENT: 1. Acute right spontaneous pneumothorax with shortness of breath and chest pain, status post ThoraVent as well as pleurodesis and right video thorascopic wedge resection in the right upper lobe for multiple emphysematous blebs in the right upper lobe. 2. History of recurrent pneumothorax on the right. 3. Hyponatremia. 4. History of hidradenitis suppurativa. 5. History of syncope. 6. History of MRSA. 7. History of cholecystectomy. 8. History of anxiety. 9. Continued ongoing nicotine dependence. RECOMMENDATIONS AND DISCUSSION: I recommend to continue current medications, continue with the monitoring, symptomatic treatment. Otherwise at this time, closely follow with Cardiothoracic Surgery. Guarded prognosis. Further recommendations to follow. MMODL / IJN: [id number] /
[2020-12-05] MEDS ORDERED: ALPRAZolam 0.5 MG TAB PO PRN (21:26)
[2020-12-06] MEDS: MORPHINE SULFATE 4 MG/ML SYRINGE IV PRN ×3 (04:45→12:13)
[2020-12-06] MEDS: KETOROLAC 15 MG/ML 1 ML VIAL IVP SCH (06:24)
[2020-12-06] MEDS: PANTOPRAZOLE 40 MG TABLET PO SCH (06:24)
--- NOTE | 2020-12-06 06:47 | XR ---
EXAMINATION TYPE: XR chest 1V DATE OF EXAM: 12/06/2020 CLINICAL HISTORY: Difficulty breathing progress study. Postoperative right VATS TECHNIQUE: Single AP portable upright view of the chest is obtained. COMPARISON: Chest x-ray from one day earlier and older studies. FINDINGS: Patchy lateral left basilar opacity more prominent from prior. Stable right-sided chest tu be without visualized pneumothorax. Surgical changes to right lung with sutures and clips redemonstra keenan. Small amount of fluid right lung fissure are again seen. Developing right basilar opacity. Cardi ac silhouette size stable and upper limits of normal. Osseous structures are intact. IMPRESSION: Developing right basilar acute infiltrate and/or atelectasis. Worsening left basilar acut e infiltrate and/or atelectasis. Persistent right lung surgical change and right-sided chest tube wit hout visualized pneumothorax.
[2020-12-06 08:04] LABS: African American GFR (CKD) >90 (>60 ml/min/1.73 sqM); Anion Gap 5 mmol/L; Blood Urea Nitrogen 4 mg/dL (7-17); Calcium 8.9 mg/dL (8.4-10.2); Carbon Dioxide 26 mmol/L (22-30); Chloride 104 mmol/L (98-107); Glucose 108 mg/dL (74-99); Non-African American GFR(CKD) >90 (>60 ml/min/1.73 sqM); Potassium 3.8 mmol/L (3.5-5.1); Sodium 135 mmol/L (137-145)
[2020-12-06] MEDS: NICOTINE 14MG/24HR PATCH TRANSDERM SCH (08:42)
[2020-12-06 08:48] LABS: Basophils % (A) 0 %; Eosinophils # (A) 0.1 k/uL (0-0.7); Eosinophils % (A) 1 %; HCT 34.8 % (34.0-46.0); HGB 11.2 gm/dL (11.4-16.0); Lymphocytes # (A) 1.1 k/uL (1.0-4.8); Lymphocytes % (A) 10 %; MCH 28.7 pg (25.0-35.0); MCV 89.7 fL (80.0-100.0); Mean Platelet Volume 7.2; Monocytes # (A) 0.4 k/uL (0-1.0); Monocytes % (A) 4 %; Neutrophils # (A) 8.9 k/uL (1.3-7.7); Neutrophils % (A) 84 %; Platelet Count 256 k/uL (150-450); RBC 3.88 m/uL (3.80-5.40); RDW 12.7 % (11.5-15.5); WBC 10.6 k/uL (3.8-10.6)
[2020-12-06] MEDS: HEPARIN SODIUM,PORCINE/PF 5,000 UNIT/0.5 ML SYRINGE SQ SCH ×3 (08:55→23:44)
--- NOTE | 2020-12-06 09:12 | P.PN ---
Subjective Progress Note Date: 12/06/20 Principal diagnosis: Recurrent right sided spontaneous pneumothorax, presence of several blebs, emphysematous in nature to her right upper lobe lung. Past medical history significant for chronic ongoing tobacco dependence, previous spontaneous right pneumothorax in August 2020, treated with right Thoravent and hydradenitis suppurativa with bilateral axillary abscesses. POD #1 fiberoptic bronchoscopy, right video-assisted thoracoscopic wedge resection of the right upper lobe as well as mechanical pleurodesis. The patient was seen in follow-up today at her bedside on the third floor cardiac stepdown unit. Currently she is laying in bed, awake, alert and oriented 3. She is in no acute apparent distress. Currently she reports that her pain is well controlled on the current pain medication regimen and denies any complaints of shortness of breath. Oxygen saturations are 99% on room air and she is achieving 1500 mL on her incentive spirometry. Right pleural chest tube remains in place to low continuous wall suction -20 cm H2O. No air leak is present. Draining thin serosanguineous drainage with 20 mL output last 8 hours and 250 mL output since surgery. Remote telemetry showing normal sinus rhythm heart rate 92 BPM. She has been afebrile the last 24 hours. No new concerns. Objective - Vital Signs Vital signs: Vital Signs Temp 98.7 F 12/06/20 04:05 Pulse 100 12/06/20 04:05 Resp 17 12/06/20 04:05 BP 117/80 12/06/20 04:05 Pulse Ox 99 12/06/20 04:05 Intake & Output 12/05/20 12/06/20 12/06/20 18:59 06:59 18:59 Intake Total 650 Output Total 85 92 Balance 565 -92 Intake: IV 650 Output: Chest Tube Drainage 25 92 Right Lateral Chest 25 92 Pleural Fluid 40 Estimated Blood Loss 20 Other: Voiding Method Toilet # Voids 1 - Exam CONSTITUTIONAL: Lying in bed on the third floor cardiac stepdown unit, appears comfortable, cooperative, no apparent acute distress. HEENT: Neck is supple, no JVD, no lymphadenopathy. RESPIRATORY: Lungs sounds essentially clear throughout, diminished to her bilateral bases. Respirations are symmetrical and nonlabored. Currently on room air with oxygen saturations 99%. Able to achieve 1500 mL on her incentive silvestre metry. Strong cough. CARDIOVASCULAR: Regular rhythm and rate. S1 and S2 present, negative for S3, gallop or murmur. Knee-high sequential compression devices in place to her bilateral lower extremities. GASTROINTESTINAL: Abdomen soft, nontender, nondistended. Active bowel sounds present 4 quadrants. Tolerating diet. No guarding or rigidity. GENITOURINARY: Continues to void. INTEGUMENTARY: Skin is warm and dry with no evidence of clubbing or cyanosis. NEUROLOGIC: Cranial nerves II through XII intact. No focal deficits. MUSKULOSKELETAL: Able to move all extremities, strength equal bilaterally. PSYCHIATRIC: Alert and oriented to person place and time, appropriate affect, intact judgment and insight. INVASIVE LINES AND TUBES: Right pleural chest tube in place to low continuous w all suction -20 cm H2O. No air leak is present. Draining thin serosanguineous drainage with 20 mL output in the last 8 hours and 250 mL output since surgery. - Allied health notes Allied health notes reviewed: nursing - Labs CBC & Chem 7: 12/05/20 07:05 12/06/20 07:27 Labs: Abnormal Lab Results - Last 24 Hours (Table) 12/06/20 Range/Units 07:27 Sodium 135 L (137-145) mmol/L BUN 4 L (7-17) mg/dL Glucose 108 H (74-99) mg/dL - Imaging and Cardiology Chest x-ray: report reviewed, image reviewed Assessment and Plan Assessment: 1. Recurrent spontaneous right-sided pneumothorax, history of previous right- sided pneumothorax in August 2020, status post Thoravent placement by the emergency room physician, status post fiberoptic bronchoscopy, right video- assisted thoracoscopic wedge resection of the right upper lobe as well as mechanical pleurodesis 2. Current ongoing tobacco dependence 3. History of hydradenitis supra[place] suppurativa Plan: 1. We will place her right pleural chest tube to waterseal. Continue to monitor for air leak. 2. Encourage use of her incentive spirometry 10 times every hour while awake. 3. Pain management per current when necessary orders. 4. GI and DVT prophylaxis. 5. Medical management and other comorbidities per primary care service. 6. The importance of this modification were discussed with the patient which included the importance of smoking cessation. 7. Increase activity as tolerated. Out of bed for all meals. 8. Pathology results remain pending, we will continue to follow the results. 9. More recommendations to follow based on patient's clinical course. Time with Patient: Greater than 30
[2020-12-06] MEDS ORDERED: LACTULOSE 20 GM/30 ML CUP PO ONE ×2 (09:46→21:00)
--- NOTE | 2020-12-06 14:24 | XR ---
EXAMINATION TYPE: XR chest 1V portable DATE OF EXAM: 12/06/2020 CLINICAL HISTORY: Chest tube removal. TECHNIQUE: Single AP portable frontal view of the chest is obtained. COMPARISON: Chest x-ray from earlier today FINDINGS: Interval removal of right apical chest tube with apical and lateral scarring. There is brandon pected small right lateral pneumothorax. No new mediastinal shift. Left greater than right bibasilar opacities redemonstrated. Cardiac silhouette Size stable and within normal limits. IMPRESSION: Small residual right lateral pneumothorax after chest tube removal. No new mediastinal sh ift.
[2020-12-06] MEDS ORDERED: ALPRAZolam 0.5 MG TAB PO STA (17:20)
--- NOTE | 2020-12-06 17:43 | PN ---
PROGRESS NOTE DATE OF SERVICE: 12/06/2020. This 35-year-old woman who was admitted with acute right spontaneous pneumothorax underwent thoracoscopic surgery. No chest pain. No palpitations. No fever. The patient underwent upper lobe resection as well. Biopsies are pending at this time. No chest pain. No palpitations. No fever. PHYSICAL EXAMINATION: Alert and oriented x3. Pulse 80, blood pressure 120/73, respiration 18, temperature 98.6, pulse ox 100% on room air. HEENT: Conjunctivae normal. NECK: No jugular venous distention. CARDIOVASCULAR: S1, S2 muffled. RESPIRATION: Breath sounds diminished at the bases. Scattered rhonchi. ABDOMEN: Soft. NERVOUS SYSTEM: No focal deficit. LABS: Sodium is 135. Other labs are noted. ASSESSMENT: 1. Acute right spontaneous pneumothorax with shortness of breath and chest pain, status post ThoraVent initially as well as pleurodesis and right video thorascopic wedge resection of the right upper lobe for multiple emphysematous blebs on the right upper lobe. 2. History of recurrent pneumothorax on the right. 3. Hyponatremia. 4. History of hidradenitis suppurativa. 5. History of syncope. 6. History of MRSA. 7. History of cholecystectomy. 8. History of anxiety. 9. Continued ongoing nicotine dependence. RECOMMENDATIONS AND DISCUSSION: I recommend to continue current medications, continue with symptomatic treatment. Await biopsy report. Incentive spirometry. Closely follow with Cardiothoracic Surgery. Guarded prognosis. Further recommendations to follow. MMODL / IJN: [id number] /
[2020-12-07] MEDS: PANTOPRAZOLE 40 MG TABLET PO SCH (06:12)
--- NOTE | 2020-12-07 07:44 | XR ---
EXAMINATION TYPE: XR chest 1V portable DATE OF EXAM: 12/07/2020 COMPARISON: 12/06/2020 INDICATION: Postop right VATS TECHNIQUE: Single frontal view of the chest is obtained. FINDINGS: The heart size is normal. The pulmonary vasculature is normal. There is mild increased lung markings through the right mid-upper lung field. The lateral linear thuan ings at the right mid lung post chest tube remain present. Minimal residual pneumothorax may be prese nt. Mild atelectatic type changes are left base. IMPRESSION: 1. Persistent residual right mid lung loculated pneumothorax similar to slightly diminished from the comparison study. 2. Left basilar atelectasis
--- NOTE | 2020-12-07 08:34 | P.PN ---
Subjective Progress Note Date: 12/07/20 Principal diagnosis: Recurrent right sided spontaneous pneumothorax, presence of several blebs, emphysematous in nature to her right upper lobe lung. Previous medical history of chronic ongoing tobacco dependence, previous spontaneous right pneumothorax in August 2020, treated with right Thoravent and hydradenitis suppurativa with bilateral axillary abscesses. POD #2 fiberoptic bronchoscopy, right video-assisted thoracoscopic wedge resection of the right upper lobe as well as mechanical pleurodesis. The patient was seen and examined this morning on the cardiac stepdown unit. She states pain is well-controlled, denies shortness of breath, states she feels significantly better than when she came into the hospital. Currently on room air with oxygen saturation 100%. Able to achieve 2000 mL on incentive spirometry without difficulty. Pleural chest tube was removed yesterday, repeat chest x-ray reviewed. No other new concerns. Patient expressing desire to go home Objective - Vital Signs Vital signs: Vital Signs Temp 98.6 F 12/07/20 03:10 Pulse 78 12/07/20 03:10 Resp 17 12/07/20 03:10 BP 114/76 12/07/20 03:10 Pulse Ox 100 12/07/20 03:10 Intake & Output 12/06/20 12/07/20 12/07/20 18:59 06:59 18:59 Intake Total 180 Output Total 20 Balance 160 Intake: Oral 180 Output: Chest Tube Drainage 20 Right Lateral Chest 20 Other: Voiding Method Toilet Toilet - Exam CONSTITUTIONAL: Appears comfortable, cooperative, no acute distress RESPIRATORY: Lungs sounds diminished bilaterally. Respirations even, nonlabored. Currently on room air with oxygen saturation 100%. Able to achieve 2000 mL on incentive spirometry. Strong cough. CARDIOVASCULAR: S1, S2 present. Regular rate and rhythm, sinus rhythm on telemetry. Palpable peripheral pulses bilaterally. No edema present. No calf pain or tenderness noted. GASTROINTESTINAL: Abdomen soft, nontender, nondistended. Active bowel sounds present 4 quadrants. Tolerating diet. GENITOURINARY: Continues to void clear, yellow urine INTEGUMENTARY: Skin is warm and dry with evidence of good perfusion. Thoracic incision well approximated and covered with dry intact dressing. NEUROLOGIC: Cranial nerves II through XII intact MUSKULOSKELETAL: Able to move all extremities, strength equal bilaterally, gait normal PSYCHIATRIC: Alert and oriented to person place and time, appropriate affect, intact judgment and insight - Allied health notes Allied health notes reviewed: nursing - Labs CBC & Chem 7: 12/06/20 07:27 10 07:27 Labs: Abnormal Lab Results - Last 24 Hours (Table) 12/06/20 12/06/20 Range/Units 07:27 07:27 Hgb 11.2 L (11.4-16.0) gm/dL Neutrophils # 8.9 H (1.3-7.7) k/uL Sodium 135 L (137-145) mmol/L BUN 4 L (7-17) mg/dL Glucose 108 H (74-99) mg/dL - Imaging and Cardiology Chest x-ray: image reviewed Assessment and Plan Assessment: 1. Recurrent spontaneous right-sided pneumothorax, history of previous right- sided pneumothorax in August 2020 with Thoravent placement, status post fiberoptic bronchoscopy, right video-assisted thoracoscopic wedge resection of the right upper lobe as well as mechanical pleurodesis 2. Current ongoing tobacco dependence 3. History of hydradenitis suppurativa Plan: 1. Chest tube discontinued yesterday, repeat chest x-ray reviewed. Pathology remains pending 2. Continue to encourage use of her incentive spirometry 10 times every hour while awake 3. Increase activity as tolerated. Out of bed for all meals 4. Pain management per current medication regimen 5. GI and DVT prophylaxis. 6. Smoking cessation counseling was again provided, patient was encouraged to quit smoking 5. Medical management of other comorbidities per primary care service. 6. Patient may be discharged home from cardiothoracic surgery standpoint. We will see her in the office next week for incision check, she should obtain CXR prior to appointment. Discharge instructions placed on discharge planning 7. Will see again while hospitalized on an as-needed basis. Please call us with any concerns Time with Patient: Greater than 30
[2020-12-07] MEDS: HEPARIN SODIUM,PORCINE/PF 5,000 UNIT/0.5 ML SYRINGE SQ SCH (08:46)
[2020-12-07] MEDS: NICOTINE 14MG/24HR PATCH TRANSDERM SCH (09:50)
[2020-12-07 12:16] VITALS: BP 111/58; PULSE 80; RESP 14; TEMP 98.5
--- NOTE | 2020-12-08 10:20 | DS ---
DISCHARGE SUMMARY DATE OF SERVICE: 12/07/2020 FINAL DIAGNOSES: 1. Acute right spontaneous pneumothorax with shortness of breath and as well as chest pain status post ThoraVent initially as well as and right video thoracoscopy with wedge resection of the right upper lobe for multiple emphysematous bleb on the right upper lobe. 2. Rule out tuberous sclerosis. 3. History of recurrent pneumothorax on the right. 4. Hyponatremia. 5. History of hidradenitis suppurativa. 6. History of syncope. 7. History of MRSA. 8. History of cholecystectomy. 9. History of anxiety. 10.Continued ongoing nicotine dependence. DISCHARGE DISPOSITION: The patient will be discharged in stable condition with guarded prognosis. HISTORY OF PRESENT ILLNESS: This 35-year-old woman who presented with multiple complex medical issues, was admitted with Pneumothorax and the patient had a chest tube and a ThoraVent drainage initially, but because of lack of improvement, the patient underwent arthroscopic procedure as mentioned earlier with pleurodesis and lung resection biopsy. Reports are pending at this time. I recommend the patient follow up with Pulmonary and Cardiothoracic surgery and as well as Dr. Richardson closely in the outpatient setting. Otherwise, sodium is 135. The patient did not have any typical features of tuberous sclerosis, but however the patient has some facial lesions. On exam, vitals signs stable. Cardiovascular S1, S2. Abdomen soft. Nervous system: DISCHARGE ADVICE AND MEDICATIONS: 1. Diet is cardiac diet. 2. Activity limited until follow up. 3. Follow up with Dr. Richardson in 2-3 days. 4. Follow up with Dr. Lee as recommended. 5. Habitrol 14 daily. 6. No smoking. 7. Tylenol p.r.n. 8. Chest x-ray follow up with Cardiothoracic. MMODL / IJN: [id number] / RUPAL
== END 2020-12-07 12:50 | disposition home or self-care (01) | DRG 164 ==
LOC: EC 21:22 → 5NMEDONC 23:27 → 1SOBS 12-03 14:29 → 3SCARD 12-05 13:26
PROVIDERS: ADMIT Hospitalist; ATTEND Hospitalist
PROC: 0W9930Z Drainage of Right Pleural Cavity with Drainage Device, Percutaneous Approach (ICD-10-PCS; 2020-12-02)
PROC: 0B5N4ZZ Destruction of Right Pleura, Percutaneous Endoscopic Approach (ICD-10-PCS; principal; 2020-12-05 07:30)
PROC: 0BBC4ZZ Excision of Right Upper Lung Lobe, Percutaneous Endoscopic Approach (ICD-10-PCS; principal; 2020-12-05 07:30)
PROC: 0BJ08ZZ Inspection of Tracheobronchial Tree, Via Natural or Artificial Opening Endoscopic (ICD-10-PCS; principal; 2020-12-05 07:30)
DX: J93.83 Other pneumothorax (principal); E87.1 Hypo-osmolality and hyponatremia; J43.9 Emphysema, unspecified; Z20.822 Contact with and (suspected) exposure to COVID-19; G89.29 Other chronic pain; F41.9 Anxiety disorder, unspecified; L73.2 Hidradenitis suppurativa; F17.210 Nicotine dependence, cigarettes, uncomplicated; Z71.6 Tobacco abuse counseling; Z87.440 Personal history of urinary (tract) infections; Z86.14 Personal history of Methicillin resistant Staphylococcus aureus infection; Z98.891 History of uterine scar from previous surgery; Z90.49 Acquired absence of other specified parts of digestive tract; Z98.890 Other specified postprocedural states
CPT/HCPCS: 71045; 71046; 71250; 80048; 80053; 81025; 83735; 85025; 85610; 85730; 86850; 86900; 86901; 87635; 88307; 93005; 99285

== ENCOUNTER → 2020-12-16 | Outpatient (CLI) | payer OTHER ==
--- NOTE | 2020-12-16 10:51 | XR ---
EXAMINATION TYPE: XR chest 2V DATE OF EXAM: 12/16/2020 COMPARISON: 12/07/2020 HISTORY: 35-year-old female with pain, assess for right-sided pneumothorax. TECHNIQUE: Frontal and lateral views FINDINGS: The cardiomediastinal silhouette, aorta, and pulmonary vasculature are within normal limits. There seems to be some cysts vertically oriented surgical material extending throughout the right nicole g. This should be correlated clinically. No appreciable pneumothorax. Juxtaphrenic peak sign right he midiaphragm suggesting some volume loss on the right. No consolidation or pleural effusion seen. IMPRESSION: Query vertically oriented surgical material extending throughout the right lung. Some indirect signs of chronic volume loss in the right lung. No convincing evidence for pneumothorax.
== END | disposition home or self-care (01) ==
LOC: RADXRMAIN 10:19
PROVIDERS: ATTEND Surgery
DX: J98.4 Other disorders of lung (principal)
CPT/HCPCS: 71046

== ENCOUNTER 2022-08-05 12:21 | Emergency (ER) | payer OTHER ==
[2022-08-05] MEDS ORDERED: KETOROLAC 15 MG/ML 1 ML VIAL IM STA (13:21)
--- NOTE | 2022-08-05 13:26 | ED ---
Skin/Abscess/FB HPI - General Chief complaint: Skin/Abscess/Foreign Body Stated complaint: rash by right ear Time Seen by Provider: 08/05/22 13:04 Source: patient, RN notes reviewed Mode of arrival: ambulatory Limitations: no limitations - History of Present Illness Initial comments: Patient is a 37 year old -Togol[place] female, presenting to the emergency room with complaints of painful rash to the right ear which started posteriorly and has slowly worked around to include the entire aspect of the outer oracle region and tissue of the face just below the ear. She reports that when she was younger, she had recurrent episodes of rashes similar to her presenting rash but has not had any in several years. She is following with dermatology for Hidradenitis Suppurativa. she has an upcoming appointment next week with her instrument repairer steam plant for incisional removal of an abscess related to her Hidradenitis Suppurativa located under her right eye. She denies any changes in that lesion. She reports that the rash to her ear is very painful, with increased swelling, and yellow drainage often. She reports when she wakes in the morning that her pillow is typically covered with yellow exudate. She denies any ear pain not related to external pain, hearing loss, tinnitus, sore throat, headache, dizziness, fevers, or chills. She has been applying antibiotic, ointment to the lesion, but has not been prescribed any other medications. In addition to her Hidradenitis Suppurativa she has a past medical history significant for recurrent UTIs. - Related Data Previous Rx's Medication Instructions Recorded Acetaminophen Tab [Tylenol] 650 mg PO Q4HR PRN #30 tab 12/07/20 Nicotine 14Mg/24Hr Patch [Habitrol] 1 patch TRANSDERM DAILY #30 patch 12/07/20 Clotrimazole/Betameth Cream 1 applic TOPICAL BID #45 gm 08/05/22 [Lotrisone] Ibuprofen [Motrin] 800 mg PO Q8H PRN 7 Days #21 tab 08/05/22 Allergies Allergy/AdvReac Type Severity Reaction Status Date / Time No Known Allergies Allergy Verified 08/05/22 12:37 Review of Systems ROS Statement: Those systems with pertinent positive or pertinent negative responses have been documented in the HPI. ROS Other: All systems not noted in ROS Statement are negative. Past Medical History Past Medical History: Skin Disorder, Syncope Additional Past Medical History / Comment(s): Hidradenitis suppurativa with ABX and surgical txs, syncopy, UTI, chronic pain. GALLBLADDER DISORDER, pneumothorax right lung in August 2020. History of Any Multi-Drug Resistant Organisms: None Reported Date of last positivie culture/infection: 12/23/2014 MDRO Source:: right axilla Past Surgical History: Section, Cholecystectomy Additional Past Surgical History / Comment(s): R axillary abscess (hidradenitis suppuriativa) removal, L axillary abscess (hidradenitis suppurativa) surgery- large excision with wound vac, sweat glands removed.03-07-16 I&D RT AXILLARY ABCESS. C-SEC X 2 Past Anesthesia/Blood Transfusion Reactions: No Reported Reaction Additional Past Anesthesia/Blood Transfusion Reaction / Comment(s): Pt received blood without reaction after 1st childbirth. Past Psychological History: Anxiety Smoking Status: Current every day smoker Past Alcohol Use History: Occasional Past Drug Use History: None Reported - Past Family History Father Family Medical History: No Reported History Additional Family Medical History / Comment(s): Father is healthy Mother Family Medical History: No Reported History Additional Family Medical History / Comment(s): Mother is healthy General Exam Limitations: no limitations General appearance: alert, in no apparent distress Head exam: Present: atraumatic, normocephalic, normal inspection Eye exam: Present: normal appearance, PERRL, EOMI. Absent: scleral icterus, conjunctival injection, periorbital swelling Pupils: Present: other (Soft mobile abscess under left eye.) ENT exam: Present: TM's normal bilaterally Expanded Ear exam: Present: other (Right erythema with crusting rash and trace amounts of serosanguineous exudate.). Absent: auricular hematoma, auricular trauma Mouth exam: Present: normal external inspection Teeth exam: Present: normal inspection Neck exam: Present: normal inspection, full ROM. Absent: tenderness Respiratory exam: Absent: respiratory distress, accessory muscle use Cardiovascular Exam: Present: regular rate Extremities exam: Present: normal inspection. Absent: pedal edema, joint swelling Back exam: Present: normal inspection Neurological exam: Present: alert, oriented X3, CN II-XII intact Psychiatric exam: Present: normal affect, normal mood Skin exam: Present: rash (as above) Course Vital Signs 08/05/22 08/05/22 12:36 13:44 Temperature 98.2 F 97.8 F Pulse Rate 100 90 Respiratory 18 16 Rate Blood Pressure 104/71 112/71 O2 Sat by Pulse 100 97 Oximetry Medical Decision Making - Medical Decision Making Was pt. sent in by a medical professional or institution (, [place], [facility], urgent care, hospital, or [place] [facility] [place] facility...) When possible be specific @ -No Did you speak to anyone other than the patient for history (EMS, parent, family, police, friend...)? What history was obtained from this source @ -No Did you review nursing and triage notes (agree or disagree)? Why? @ -I reviewed and agree with nursing and triage notes Were old charts reviewed (outside hosp., previous admission, EMS record, old EKG, old radiological studies, urgent care reports/EKG's, [place] health [facility] facility records)? Report findings @ -No old charts were reviewed Differential Diagnosis (chest pain, altered mental status, abdominal pain women, abdominal pain men, vaginal bleeding, weakness, fever, dyspnea, syncope, headache, dizziness, GI bleed, back pain, seizure, CVA, palpatations, mental health, musculoskeletal)? @ -Differential Rash: Contact dermatitis, allergic reaction, petechial rash, herpes zoster, urticaria, MRSA infection, cellulitis, erythema multiforme a, tinea corpus, impetigo, and, insect bite, atopic dermatitis, this is not meant to be an all-inclusive list. EKG interpreted by me (3pts min.). @ -None done X-rays interpreted by me (1pt min.). @ -None done CT interpreted by me (1pt min.). @ -None done U/S interpreted by me (1pt. min.). @ -None done What testing was considered but not performed or refused? (CT, X-rays, U/S, labs)? Why? @ -None What meds were considered but not given or refused? Why? @ -None Did you discuss the management of the patient with other professionals (professionals i.e. , Е[facility], [facility], lab, RT, psych nurse, social sciences instructor, container packer operator, teacher, tactical debriefer officer, case managers)? Give summary @ -No Was smoking cessation discussed for >3mins.? @ -No Was critical care preformed (if so, how long)? @ -No Were there social determinants of health that impacted care today? How? (Homelessness, low income, unemployed, alcoholism, drug addiction, transportation, low edu. Level, literacy, decrease access to med. care, long term, rehab)? @ -No Was there de-escalation of care discussed even if they declined (Discuss DNR or withdrawal of care, Hospice)? DNR status @ -No What co-morbidities impacted this encounter? (DM, HTN, Smoking, COPD, CAD, Cancer, CVA, ARF, Chemo, Hep., AIDS, mental health diagnosis, sleep apnea, morbid obesity)? @ -None Was patient admitted / discharged? Hospital course, mention meds given and route, prescriptions, significant lab abnormalities, going to OR and other pertinent info. @ -37-year-old female presenting to the emergency room with complaints of rash to right ear which has progressively gotten worse over the last 2 weeks without any hearing complications. Following with dermatology for history of hidradenitis suppurativa with upcoming appointment and surgical intervention with dermatology next week. No current antibiotic therapy. No indication for diagnostic imaging or laboratory studies. Physical exam consistent with otomycosis of right ear. Treatment of otomycosis discussed with patient. Encouraged follow-up with her instrument repairer steam plant as scheduled. Advised keeping ear clean and dry. Will place on topical medications no indication of her oral medications at this time. Questions and concerns answered. Return parameters emergency room discussed. Will discharge home in stable condition on topical antifungal/steroid medication to treat Otomycosis of right ear advising continued follow-up with her instrument repairer steam plant. Undiagnosed new problem with uncertain prognosis? @ -No Drug Therapy requiring intensive monitoring for toxicity (Heparin, Nitro, Insulin, Cardizem)? @ -No Were any procedures done? @ -No Diagnosis/symptom? @ -Otomycosis of right ear Acute, or Chronic, or Acute on Chronic? @ -Acute Uncomplicated (without systemic symptoms) or Complicated (systemic symptoms)? @ -Uncomplicated Side effects of treatment? @ -No Exacerbation, Progression, or Severe Exacerbation? @ -No Poses a threat to life or bodily function? How? (Chest pain, USA, NV, pneumonia, PE, COPD, DKA, ARF, appy, cholecystitis, CVA, Diverticulitis, Homicidal, Suicidal, threat to staff... and all critical care pts) @ -No Case discussed with Dr. Bernard Disposition Clinical Impression: Otomycosis of right ear Disposition: HOME SELF-CARE Condition: Stable Instructions (If sedation given, give patient instructions): Tinea Corporis (ED) Additional Instructions: Keep skin clean and dry. Apply topical antifungal/steroid cream to affected area twice a day as prescribed. Please follow-up with your instrument repairer steam plant. Please return to the Emergency Department if symptoms worsen or any other concerns. Prescriptions: Clotrimazole/Betameth Cream [Lotrisone] 1 applic TOPICAL BID #45 gm Ibuprofen [Motrin] 800 mg PO Q8H PRN 7 Days #21 tab PRN Reason: Pain Is patient prescribed a controlled substance at d/c from ED?: No Referrals: Aldo Perez MD [Primary Care Provider] - 1-2 days Time of Disposition: 13:21
[2022-08-05 13:45] VITALS: BP 112/71; PULSE 90; RESP 16; TEMP 97.8
== END 2022-08-05 14:00 | disposition home or self-care (01) ==
LOC: EC 12:21
DX: B36.9 Superficial mycosis, unspecified (principal); H62.41 Otitis externa in other diseases classified elsewhere, right ear; F17.200 Nicotine dependence, unspecified, uncomplicated; Z90.49 Acquired absence of other specified parts of digestive tract; Z86.59 Personal history of other mental and behavioral disorders
CPT/HCPCS: 99283; 96372; J1885

== ENCOUNTER 2022-10-03 11:45 | Emergency (ER) | payer OTHER ==
[2022-10-03] MEDS ORDERED: ONDANSETRON 4 MG/2 ML VIAL IVP STA (11:59)
[2022-10-03] MEDS ORDERED: SODIUM CHLORIDE 0.9% 2,000 ML IV ONE (11:59)
[2022-10-03] MEDS ORDERED: HYDROmorphone 0.5 MG/0.5 ML SYRINGE IVP STA ×2 (11:59→12:30)
[2022-10-03 12:10] LABS: Basophils % (A) 0 %; Eosinophils # (A) 0.1 k/uL (0-0.7); Eosinophils % (A) 1 %; HCT 44.3 % (34.0-46.0); HGB 14.4 gm/dL (11.4-16.0); Lymphocytes # (A) 3.6 k/uL (1.0-4.8); Lymphocytes % (A) 37 %; MCH 28.2 pg (25.0-35.0); MCHC 32.6 g/dL (31.0-37.0); MCV 86.7 fL (80.0-100.0); Mean Platelet Volume 7.6; Monocytes # (A) 0.4 k/uL (0-1.0); Monocytes % (A) 4 %; Neutrophils # (A) 5.6 k/uL (1.3-7.7); Neutrophils % (A) 56 %; Platelet Count 372 k/uL (150-450); RBC 5.11 m/uL (3.80-5.40); RDW 13.4 % (11.5-15.5); WBC 9.9 k/uL (3.8-10.6)
[2022-10-03 12:21] LABS: ALT 15 U/L (4-34); AST 26 U/L (14-36); African American GFR (CKD) >90 (>60 ml/min/1.73 sqM); Albumin 4.7 g/dL (3.5-5.0); Alkaline Phosphatase 83 U/L (38-126); Anion Gap 13 mmol/L; Blood Urea Nitrogen 12 mg/dL (7-17); Calcium 10.2 mg/dL (8.4-10.2); Carbon Dioxide 27 mmol/L (22-30); Chloride 98 mmol/L (98-107); Glucose 116 mg/dL (74-99); Lipase 117 U/L (23-300); Non-African American GFR(CKD) >90 (>60 ml/min/1.73 sqM); Sodium 138 mmol/L (137-145); Total Bilirubin 0.8 mg/dL (0.2-1.3); Total Protein 8.8 g/dL (6.3-8.2)
[2022-10-03] MEDS ORDERED: diphenhydrAMINE 50 MG/ML 1 ML VIAL IVP STA (12:30)
[2022-10-03] MEDS ORDERED: METOCLOPRAMIDE 5 MG/ML 2 ML VIAL IVP STA (12:30)
[2022-10-03 13:28] LABS: Appearance,Urine Cloudy (Clear); Bilirubin,Urine 1+ (Negative); Blood,Urine Small (Negative); Color,Urine Light Red; Glucose,Urine (UA) Negative (Negative); Ketones,Urine 3+ (Negative); Leukocyte Esterase,Urine Large (Negative); Mucus,Urine Many /hpf; Nitrite,Urine Negative (Negative); Protein,Urine 1+ (Negative); RBC,Urine 5 /hpf (0-5); Specific Gravity,Urine 1.027 (1.001-1.035); Squamous Epithelial Cell,Urine 13 /hpf (0-4); WBC,Urine 9 /hpf (0-5)
--- NOTE | 2022-10-03 14:06 | CT ---
EXAMINATION TYPE: CT abdomen pelvis w con DATE OF EXAM: 10/03/2022 COMPARISON: 10/24/2020 HISTORY: Stomach pain, nausea and vomiting CT DLP: 718 mGycm CONTRAST: CT scan of the abdomen and pelvis is performed without Oral Contrast and with IV Contrast, patient in jected with 100 mL of Isovue 300. FINDINGS: LUNG BASES-: No visible nodule. No infiltrate. LIVER/GB: The gallbladder is surgically absent. No space occupying hepatic lesion. Biliary tree is of normal caliber. PANCREAS: No inflammation. No distinct mass. SPLEEN: No splenic enlargement. No lesion seen. ADRENALS: No nodule. No thickening. KIDNEYS/BLADDER: No hydronephrosis. No nephrolithiasis. No distinct renal mass. Urinary bladder g rossly unremarkable. BOWEL: Visualized portions of the appendix appear unremarkable. Mild wall thickening of the small bow el fluid distention. Correlate for enteritis. Large bowel is grossly unremarkable. No evidence of samuel e air. Mild gastric wall thickening and fluid retention. GENITAL ORGANS: Resolution of previously noted ovarian cysts. Uterus is unremarkable. LYMPH NODES: No greater than 1cm abdominal or pelvic lymph nodes are appreciated. AORTA: No significant abnormality. OSSEOUS STRUCTURES: No significant abnormality is seen. OTHER: No significant additional abnormality is seen. IMPRESSION: 1. Correlate for gastroenteritis.
--- NOTE | 2022-10-03 14:34 | ED ---
Abdominal Pain HPI - General Chief Complaint: Abdominal Pain Stated Complaint: abd pain, vomiting Time Seen by Provider: 10/03/22 11:51 Source: patient, RN notes reviewed Mode of arrival: ambulatory Limitations: no limitations - History of Present Illness Initial Comments: 37-year-old female presents emergency from chief complaint of nausea vomiting diarrhea. Patient states started last night states Vomited She's Had Severe Abdominal Pain, Cramping. No Fevers or Chills No Sick Contacts. Patient States Never Had Any like This in the past. Patient Denies Any Chance . Patient Had Prior Cholecystectomy. - Related Data Previous Rx's Medication Instructions Recorded Ondansetron Odt [Zofran Odt] 4 mg PO Q8HR PRN #10 tab 10/03/22 Allergies Allergy/AdvReac Type Severity Reaction Status Date / Time No Known Allergies Allergy Verified 10/03/22 12:44 Review of Systems ROS Statement: Those systems with pertinent positive or pertinent negative responses have been documented in the HPI. ROS Other: All systems not noted in ROS Statement are negative. Past Medical History Past Medical History: Skin Disorder, Syncope Additional Past Medical History / Comment(s): Hidradenitis suppurativa with ABX and surgical txs, syncopy, UTI, chronic pain. GALLBLADDER DISORDER, pneumothorax right lung in August 2020. History of Any Multi-Drug Resistant Organisms: None Reported Date of last positivie culture/infection: 12/23/2014 MDRO Source:: right axilla Past Surgical History: Section, Cholecystectomy Additional Past Surgical History / Comment(s): R axillary abscess (hidradenitis suppuriativa) removal, L axillary abscess (hidradenitis suppurativa) surgery- large excision with wound vac, sweat glands removed.03-07-16 I&D RT AXILLARY ABCESS. C-SEC X 2 Past Anesthesia/Blood Transfusion Reactions: No Reported Reaction Additional Past Anesthesia/Blood Transfusion Reaction / Comment(s): Pt received blood without reaction after 1st childbirth. Past Psychological History: Anxiety Smoking Status: Current every day smoker Past Alcohol Use History: Occasional Past Drug Use History: None Reported - Past Family History Father Family Medical History: No Reported History Additional Family Medical History / Comment(s): Father is healthy Mother Family Medical History: No Reported History Additional Family Medical History / Comment(s): Mother is healthy General Exam Limitations: no limitations General appearance: alert, in no apparent distress Head exam: Present: atraumatic, normocephalic, normal inspection Neck exam: Present: normal inspection. Absent: tenderness, meningismus, lymphadenopathy Respiratory exam: Present: normal lung sounds bilaterally. Absent: respiratory distress, wheezes, rales, rhonchi, stridor Cardiovascular Exam: Present: regular rate, normal rhythm, normal heart sounds. Absent: systolic murmur, diastolic murmur, rubs, gallop, clicks GI/Abdominal exam: Present: soft, tenderness, normal bowel sounds. Absent: distended, guarding, rebound, rigid Course Vital Signs 10/03/22 10/03/22 10/03/22 11:46 12:54 14:40 Temperature 99.2 F 98.0 F Pulse Rate 67 78 61 Respiratory 18 20 18 Rate Blood Pressure 140/77 110/65 93/59 O2 Sat by Pulse 100 100 100 Oximetry Medical Decision Making - Medical Decision Making Was pt. sent in by a medical professional or institution (, [place], [facility], urgent care, hospital, or group home...) When possible be specific @ -No Did you speak to anyone other than the patient for history (EMS, parent, family, police, friend...)? What history was obtained from this source @ -No Did you review nursing and triage notes (agree or disagree)? Why? @ -I reviewed and agree with nursing and triage notes Were old charts reviewed (outside hosp., previous admission, EMS record, old EKG, old radiological studies, urgent care reports/EKG's, group home records)? Report findings @ -No old charts were reviewed Differential Diagnosis (chest pain, altered mental status, abdominal pain women, abdominal pain men, vaginal bleeding, weakness, fever, dyspnea, syncope, headache, dizziness, GI bleed, back pain, seizure, CVA, palpatations, mental health, musculoskeletal)? @ -nDifferential Abdominal Pain Women: Appendicitis, Cholecystitis, diverticulosis, ischemic bowel, pancreatitis, hepatitis, UTI, gastroenteritis, AAA, incarcerated hernia, bowel obstruction, constipation, inflammatory bowel, hepatitis, peptic ulcer disease, splenic infarction, perforated viscus, vulvitis, ovarian torsion, PID, kidney stone, placenta abruption, this is not meant to be an all-inclusive listable EKG interpreted by me (3pts min.). @ -None X-rays interpreted by me (1pt min.). @ -None done CT interpreted by me (1pt min.). @ -CT abdomen and pelvis shows evidence of gastroenteritis type changes. U/S interpreted by me (1pt. min.). @ -None done What testing was considered but not performed or refused? (CT, X-rays, U/S, labs)? Why? @ -None What meds were considered but not given or refused? Why? @ -None Did you discuss the management of the patient with other professionals (professionals i.e. DrJulius, PA, [facility], lab, RT, psych nurse, social research assistant, unix system administrator, teacher, operations officer, leather case finisher)? Give summary @ -No Was smoking cessation discussed for >3mins.? @ -No Was critical care preformed (if so, how long)? @ -No Were there social determinants of health that impacted care today? How? (Homelessness, low income, unemployed, alcoholism, drug addiction, transportation, low edu. Level, literacy, decrease access to med. care, care home, rehab)? @ -No Was there de-escalation of care discussed even if they declined (Discuss DNR or withdrawal of care, Hospice)? DNR status @ -No What co-morbidities impacted this encounter? (DM, HTN, Smoking, COPD, CAD, Cancer, CVA, ARF, Chemo, Hep., AIDS, mental health diagnosis, sleep apnea, morbid obesity)? @ -None Was patient admitted / discharged? Hospital course, mention meds given and route, prescriptions, significant lab abnormalities, going to OR and other pertinent info. @ -Discharge patient feels improved IV fluids, antiemetics. Patient has gastroenteritis. Patient we discharged with Zofran to children's were discussed. Undiagnosed new problem with uncertain prognosis? @ -No Drug Therapy requiring intensive monitoring for toxicity (Heparin, Nitro, Insulin, Cardizem)? @ -No Were any procedures done? @ -No Diagnosis/symptom? @ -Fish enteritis Acute, or Chronic, or Acute on Chronic? @ -Acute Uncomplicated (without systemic symptoms) or Complicated (systemic symptoms)? @ -Uncomplicated Side effects of treatment? @ -No Exacerbation, Progression, or Severe Exacerbation? @ -No Poses a threat to life or bodily function? How? (Chest pain, USA, [place], pneumonia, PE, COPD, DKA, ARF, appy, cholecystitis, CVA, Diverticulitis, Homicidal, Suicidal, threat to staff... and all critical care pts) @ -No - Lab Data Result diagrams: 10/03/22 12:01 10/03/22 12:01 Lab Results 10/03/22 10/03/22 10/03/22 Range/Units 12:01 12:01 12:01 WBC 9.9 (3.8-10.6) k/uL RBC 5.11 (3.80-5.40) m/uL Hgb 14.4 (11.4-16.0) gm/dL Hct 44.3 (34.0-46.0) % MCV 86.7 (80.0-100.0) fL MCH 28.2 (25.0-35.0) pg MCHC 32.6 (31.0-37.0) g/dL RDW 13.4 (11.5-15.5) % Plt Count 372 (150-450) k/uL MPV 7.6 Neutrophils % 56 % Lymphocytes % 37 % Monocytes % 4 % Eosinophils % 1 % Basophils % 0 % Neutrophils # 5.6 (1.3-7.7) k/uL Lymphocytes # 3.6 (1.0-4.8) k/uL Monocytes # 0.4 (0-1.0) k/uL Eosinophils # 0.1 (0-0.7) k/uL Basophils # 0.0 (0-0.2) k/uL Sodium 138 (137-145) mmol/L Potassium 4.0 (3.5-5.1) mmol/L Chloride 98 (98-107) mmol/L Carbon Dioxide 27 (22-30) mmol/L Anion Gap 13 mmol/L BUN 12 (7-17) mg/dL Creatinine 0.74 (0.52-1.04) mg/dL Est GFR (CKD-EPI)AfAm >90 (>60 ml/min/1.73 sqM) Est GFR (CKD-EPI)NonAf >90 (>60 ml/min/1.73 sqM) Glucose 116 H (74-99) mg/dL Plasma Lactic Acid Hua (0.7-2.0) mmol/L Calcium 10.2 (8.4-10.2) mg/dL Total Bilirubin 0.8 (0.2-1.3) mg/dL AST 26 (14-36) U/L ALT 15 (4-34) U/L Alkaline Phosphatase 83 (38-126) U/L Total Protein 8.8 H (6.3-8.2) g/dL Albumin 4.7 (3.5-5.0) g/dL Lipase 117 (23-300) U/L Urine Color Light Red Urine Appearance Cloudy H (Clear) Urine pH 6.0 (5.0-8.0) Ur Specific [place] 1.027 (1.001-1.035) Urine Protein 1+ H (Negative) Urine Glucose (UA) Negative (Negative) Urine Ketones 3+ H (Negative) Urine Blood Small H (Negative) Urine Nitrite Negative (Negative) Urine Bilirubin 1+ H (Negative) Urine Urobilinogen 6.0 (<2.0) mg/dL Ur Leukocyte Esterase Large H (Negative) Urine RBC 5 (0-5) /hpf Urine WBC 9 H (0-5) /hpf Ur Squamous Epith Cells 13 H (0-4) /hpf Urine Mucus Many H (None) /hpf Urine HCG, Qual (Not Detectd) 10/03/22 10/03/22 Range/Units 12:01 12:01 WBC (3.8-10.6) k/uL RBC (3.80-5.40) m/uL Hgb (11.4-16.0) gm/dL Hct (34.0-46.0) % MCV (80.0-100.0) fL MCH (25.0-35.0) pg MCHC (31.0-37.0) g/dL RDW (11.5-15.5) % Plt Count (150-450) k/uL MPV Neutrophils % % Lymphocytes % % Monocytes % % Eosinophils % % Basophils % % Neutrophils # (1.3-7.7) k/uL Lymphocytes # (1.0-4.8) k/uL Monocytes # (0-1.0) k/uL Eosinophils # (0-0.7) k/uL Basophils # (0-0.2) k/uL Sodium (137-145) mmol/L Potassium (3.5-5.1) mmol/L Chloride (98-107) mmol/L Carbon Dioxide (22-30) mmol/L Anion Gap mmol/L BUN (7-17) mg/dL Creatinine (0.52-1.04) mg/dL Est GFR (CKD-EPI)AfAm (>60 ml/min/1.73 sqM) Est GFR (CKD-EPI)NonAf (>60 ml/min/1.73 sqM) Glucose (74-99) mg/dL Plasma Lactic Acid Hua 1.9 (0.7-2.0) mmol/L Calcium (8.4-10.2) mg/dL Total Bilirubin (0.2-1.3) mg/dL AST (14-36) U/L ALT (4-34) U/L Alkaline Phosphatase (38-126) U/L Total Protein (6.3-8.2) g/dL Albumin (3.5-5.0) g/dL Lipase (23-300) U/L Urine Color Urine Appearance (Clear) Urine pH (5.0-8.0) Ur Specific [place] (1.001-1.035) Urine Protein (Negative) Urine Glucose (UA) (Negative) Urine Ketones (Negative) Urine Blood (Negative) Urine Nitrite (Negative) Urine Bilirubin (Negative) Urine Urobilinogen (<2.0) mg/dL Ur Leukocyte Esterase (Negative) Urine RBC (0-5) /hpf Urine WBC (0-5) /hpf Ur Squamous Epith Cells (0-4) /hpf Urine Mucus (None) /hpf Urine HCG, Qual Not Detected (Not Detectd) Disposition Clinical Impression: Gastroenteritis Disposition: HOME SELF-CARE Condition: Stable Instructions (If sedation given, give patient instructions): Gastroenteritis (ED) Additional Instructions: Please return to the Emergency Department if symptoms worsen or any other concerns. Prescriptions: Ondansetron Odt [Zofran Odt] 4 mg PO Q8HR PRN #10 tab PRN Reason: Nausea Is patient prescribed a controlled substance at d/c from ED?: No Referrals: Aldo Perez MD [Primary Care Provider] - 1-2 days Time of Disposition: 14:34
[2022-10-03 14:45] VITALS: BP 93/59; PULSE 61; RESP 18; TEMP 98
== END 2022-10-03 15:00 | disposition home or self-care (01) ==
LOC: EC 11:45
DX: K52.9 Noninfective gastroenteritis and colitis, unspecified (principal); F17.200 Nicotine dependence, unspecified, uncomplicated; Z90.49 Acquired absence of other specified parts of digestive tract
CPT/HCPCS: 36415; 80053; 83605; 83690; 85025; 81001; 81025; 74177; 99284; 96374; 96375 ×3; 96376; 96361 ×3; J1200; J2765; J2405; J1170; Q9967

== ENCOUNTER 2022-10-05 07:23 | Emergency (ER) | payer OTHER ==
[2022-10-05 07:30] VITALS: TEMP 98.2
[2022-10-05] MEDS ORDERED: MORPHINE SULFATE 4 MG/ML SYRINGE IVP STA (07:37)
[2022-10-05] MEDS ORDERED: SODIUM CHLORIDE 0.9% 2,000 ML IV STA (07:37)
[2022-10-05] MEDS ORDERED: PANTOPRAZOLE 40 MG/10 ML VIAL IVP STA (07:37)
[2022-10-05] MEDS ORDERED: METOCLOPRAMIDE 5 MG/ML 2 ML VIAL IVP STA (07:37)
--- NOTE | 2022-10-05 07:49 | ED ---
Abdominal Pain HPI - General Chief Complaint: Abdominal Pain Stated Complaint: abd pain Time Seen by Provider: 10/05/22 07:33 Source: patient, RN notes reviewed Mode of arrival: ambulatory Limitations: no limitations - History of Present Illness Initial Comments: This is a 37-year-old female who presents to the emergency department for abdominal pain, nausea, and vomiting. Patient was evaluated here for this issue 2 days ago. She had imaging done revealing gastroenteritis. States that she felt better while in the emergency department, however after being discharged, the pain and vomiting have continued to progress. She was given a prescription for Zofran, however she states that this is not adequately controlling her symptoms. She continues to have pain in the upper abdominal area. Reports associated constipation. Denies any fevers, chills, sore throat, cough, dyspnea, chest pain, palpitations, diarrhea, back pain, or headaches. MD Complaint: abdominal pain - Related Data Previous Rx's Medication Instructions Recorded Ondansetron Odt [Zofran Odt] 4 mg PO Q8HR PRN #10 tab 10/03/22 HYDROcodone/APAP 7.5-325MG [[place] 1 tab PO Q6HR PRN 3 Days #12 tab 10/05/22 7.5-325] Ketorolac [Toradol] 10 mg PO Q6HR PRN #15 tab 10/05/22 Metoclopramide [Reglan] 10 mg PO Q6H PRN #20 tab 10/05/22 Allergies Allergy/AdvReac Type Severity Reaction Status Date / Time No Known Allergies Allergy Verified 10/05/22 07:29 Review of Systems ROS Statement: Those systems with pertinent positive or pertinent negative responses have been documented in the HPI. ROS Other: All systems not noted in ROS Statement are negative. Past Medical History Past Medical History: Skin Disorder, Syncope Additional Past Medical History / Comment(s): Hidradenitis suppurativa with ABX and surgical txs, syncopy, UTI, chronic pain. GALLBLADDER DISORDER, pneumothorax right lung in August 2020. History of Any Multi-Drug Resistant Organisms: None Reported Date of last positivie culture/infection: 12/23/2014 MDRO Source:: right axilla Past Surgical History: Section, Cholecystectomy Additional Past Surgical History / Comment(s): R axillary abscess (hidradenitis suppuriativa) removal, L axillary abscess (hidradenitis suppurativa) surgery- large excision with wound vac, sweat glands removed.03-07-16 I&D RT AXILLARY ABCESS. C-SEC X 2 Past Anesthesia/Blood Transfusion Reactions: No Reported Reaction Additional Past Anesthesia/Blood Transfusion Reaction / Comment(s): Pt received blood without reaction after 1st childbirth. Past Psychological History: Anxiety Smoking Status: Current every day smoker Past Alcohol Use History: Occasional Past Drug Use History: None Reported - Past Family History Father Family Medical History: No Reported History Additional Family Medical History / Comment(s): Father is healthy Mother Family Medical History: No Reported History Additional Family Medical History / Comment(s): Mother is healthy General Exam Limitations: no limitations General appearance: alert, in distress Head exam: Present: atraumatic, normocephalic, normal inspection Respiratory exam: Present: normal lung sounds bilaterally. Absent: respiratory distress, wheezes, rales, rhonchi, stridor Cardiovascular Exam: Present: regular rate, normal rhythm, normal heart sounds. Absent: systolic murmur, diastolic murmur, rubs, gallop, clicks GI/Abdominal exam: Present: soft, tenderness (upper abdomen), normal bowel sounds. Absent: distended Neurological exam: Present: alert, oriented X3, CN II-XII intact Psychiatric exam: Present: normal affect, normal mood Skin exam: Present: warm, dry, intact, normal color. Absent: rash Course Vital Signs 10/05/22 10/05/22 10/05/22 07:27 08:40 10:23 Temperature 98.2 F Pulse Rate 79 75 65 Respiratory 22 18 20 Rate Blood Pressure 155/84 117/89 118/84 O2 Sat by Pulse 99 100 99 Oximetry 10/05/22 10/05/22 11:04 12:39 Temperature Pulse Rate 77 66 Respiratory 18 18 Rate Blood Pressure 108/64 110/74 O2 Sat by Pulse 97 99 Oximetry Medical Decision Making - Medical Decision Making This is a 37-year-old female who presents to the emergency department for abdominal pain. Was pt. sent in by a medical professional or institution? @ -No Did you speak to anyone other than the patient for history? @ -No Did you review nursing and triage notes? @ -Yes, and I agree, it is accurate with regards to the patient's symptoms. Were old charts reviewed? @ -Computed tomography scan of the abdomen and pelvis from 10/03/22 revealing findings suggestive of gastroenteritis Differential Diagnosis? @ -Differential Abdominal Pain Women: Appendicitis, Cholecystitis, diverticulosis, ischemic bowel, pancreatitis, hepatitis, UTI, gastroenteritis, AAA, incarcerated hernia, bowel obstruction, constipation, inflammatory bowel, hepatitis, peptic ulcer disease, splenic infarction, perforated viscus, vulvitis, ovarian torsion, PID, kidney stone, placenta abruption, this is not meant to be an all-inclusive list EKG interpreted by me (3pts min.)? @ -Not obtained X-rays interpreted by me (1pt min.)? @ -Not obtained CT interpreted by me (1pt min.)? @ -Computed tomography scan of the abdomen and pelvis obtained. My interpretation identifies small bowel thickening. U/S interpreted by me (1pt. min.)? @ -Not obtained What testing was considered but not performed? (CT, X-rays, U/S, labs)? Why? @ -None What meds were considered but not given? Why? @ -None Did you discuss the management of the patient with other professionals? @ -No Did you reconcile home meds? @ -No Was smoking cessation discussed for >3mins.? @ -No Was critical care preformed (if so, how long)? @ -No Were there social determinants of health that impacted care today? How? (Homelessness, low income, unemployed, alcoholism, drug addiction, transportation, low edu. Level, literacy, decrease access to med. care, detention, rehab)? @ -No Was there de-escalation of care discussed even if they declined? (Discuss DNR or withdrawal of care, Hospice)? @ -No What co-morbidities impacted this encounter? (DM, HTN, Smoking, COPD, CAD, Cancer, CVA, Hep., AIDS, mental health diagnosis, sleep apnea, morbid obesity)? @ -None Was patient admitted / discharged? @ -Discharged. Lab work obtained and found to be nonactionable. Urinalysis consistent with contamination. Given the patient's progressive pain, we did ultimately decide to repeat the computed tomography scan. This revealed findings concerning for gastroenterocolitis, which has progressed when compared with the imaging 2 days ago. However, advised the patient that treatment still consists of supportive care. Symptoms were well controlled in the emergency department. Rx for Toradol, Davis, and Reglan provided with dosing instructions reviewed. Advised she take the Davis sparingly when her pain is the most severe and avoid driving or operating machinery when taking this. She will otherwise have close follow up with her PCP. Undiagnosed new problem with uncertain prognosis? @ -None Drug Therapy requiring intensive monitoring for toxicity (Heparin, Nitro, Insulin, Cardizem)? @ -None Were any procedures done? @ -None Diagnosis/symptom? @ -Gastroenterocolitis, intractable abdominal pain Acute, or Chronic, or Acute on Chronic? @ -Acute Uncomplicated (without systemic symptoms) or Complicated (systemic symptoms)? @ -Uncomplicated Side effects of treatment? @ -None Exacerbation, Progression, or Severe Exacerbation] @ -Not applicable Poses a threat to life or bodily function? @ -No Return precautions reviewed in depth, the patient is instructed to return to the emergency department with any new, worsening, or concerning symptoms. Patient verbalized understanding. This case was discussed in detail with the attending ED physician, Dr. Givens. Presentation, findings, and treatment plan discussed in detail as well. - Lab Data Result diagrams: 10/05/22 08:34 10/05/22 08:34 Lab Results 10/05/22 10/05/22 10/05/22 Range/Units 08:34 08:34 08:34 WBC 7.9 (3.8-10.6) k/uL RBC 4.39 (3.80-5.40) m/uL Hgb 12.7 (11.4-16.0) gm/dL Hct 37.6 (34.0-46.0) % MCV 85.7 (80.0-100.0) fL MCH 28.8 (25.0-35.0) pg MCHC 33.6 (31.0-37.0) g/dL RDW 13.0 (11.5-15.5) % Plt Count 251 (150-450) k/uL MPV 7.7 Neutrophils % 57 % Lymphocytes % 36 % Monocytes % 4 % Eosinophils % 2 % Basophils % 0 % Neutrophils # 4.5 (1.3-7.7) k/uL Lymphocytes # 2.8 (1.0-4.8) k/uL Monocytes # 0.3 (0-1.0) k/uL Eosinophils # 0.2 (0-0.7) k/uL Basophils # 0.0 (0-0.2) k/uL Sodium 136 L (137-145) mmol/L Potassium 3.5 (3.5-5.1) mmol/L Chloride 100 (98-107) mmol/L Carbon Dioxide 29 (22-30) mmol/L Anion Gap 7 mmol/L BUN 9 (7-17) mg/dL Creatinine 0.63 (0.52-1.04) mg/dL Est GFR (CKD-EPI)AfAm >90 (>60 ml/min/1.73 sqM) Est GFR (CKD-EPI)NonAf >90 (>60 ml/min/1.73 sqM) Glucose 106 H (74-99) mg/dL Plasma Lactic Acid Hua 0.7 (0.7-2.0) mmol/L Calcium 9.1 (8.4-10.2) mg/dL Total Bilirubin 0.4 (0.2-1.3) mg/dL AST 19 (14-36) U/L ALT 12 (4-34) U/L Alkaline Phosphatase 77 (38-126) U/L Total Protein 7.2 (6.3-8.2) g/dL Albumin 3.9 (3.5-5.0) g/dL Amylase 54 (30-110) U/L Lipase 65 (23-300) U/L Urine Color Urine Appearance (Clear) Urine pH (5.0-8.0) Ur Specific [place] (1.001-1.035) Urine Protein (Negative) Urine Glucose (UA) (Negative) Urine Ketones (Negative) Urine Blood (Negative) Urine Nitrite (Negative) Urine Bilirubin (Negative) Urine Urobilinogen (<2.0) mg/dL Ur Leukocyte Esterase (Negative) Urine RBC (0-5) /hpf Urine WBC (0-5) /hpf Ur Squamous Epith Cells (0-4) /hpf Urine Mucus (None) /hpf Urine HCG, Qual (Not Detectd) Urine Opiates Screen (NotDetected) Ur Oxycodone Screen (NotDetected) Urine Methadone Screen (NotDetected) Ur Propoxyphene Screen (NotDetected) Ur Barbiturates Screen (NotDetected) U Tricyclic Antidepress (NotDetected) Ur Phencyclidine Scrn (NotDetected) Ur Amphetamines Screen (NotDetected) U Methamphetamines Scrn (NotDetected) U Benzodiazepines Scrn (NotDetected) Urine Cocaine Screen (NotDetected) U Marijuana (THC) Screen (NotDetected) 10/05/22 10/05/22 10/05/22 Range/Units 08:41 08:41 08:41 WBC (3.8-10.6) k/uL RBC (3.80-5.40) m/uL Hgb (11.4-16.0) gm/dL Hct (34.0-46.0) % MCV (80.0-100.0) fL MCH (25.0-35.0) pg MCHC (31.0-37.0) g/dL RDW (11.5-15.5) % Plt Count (150-450) k/uL MPV Neutrophils % % Lymphocytes % % Monocytes % % Eosinophils % % Basophils % % Neutrophils # (1.3-7.7) k/uL Lymphocytes # (1.0-4.8) k/uL Monocytes # (0-1.0) k/uL Eosinophils # (0-0.7) k/uL Basophils # (0-0.2) k/uL Sodium (137-145) mmol/L Potassium (3.5-5.1) mmol/L Chloride (98-107) mmol/L Carbon Dioxide (22-30) mmol/L Anion Gap mmol/L BUN (7-17) mg/dL Creatinine (0.52-1.04) mg/dL Est GFR (CKD-EPI)AfAm (>60 ml/min/1.73 sqM) Est GFR (CKD-EPI)NonAf (>60 ml/min/1.73 sqM) Glucose (74-99) mg/dL Plasma Lactic Acid Hua (0.7-2.0) mmol/L Calcium (8.4-10.2) mg/dL Total Bilirubin (0.2-1.3) mg/dL AST (14-36) U/L ALT (4-34) U/L Alkaline Phosphatase (38-126) U/L Total Protein (6.3-8.2) g/dL Albumin (3.5-5.0) g/dL Amylase (30-110) U/L Lipase (23-300) U/L Urine Color Light Red Urine Appearance Cloudy H (Clear) Urine pH 6.5 (5.0-8.0) Ur Specific [place] 1.029 (1.001-1.035) Urine Protein 1+ H (Negative) Urine Glucose (UA) Negative (Negative) Urine Ketones Trace H (Negative) Urine Blood Small H (Negative) Urine Nitrite Negative (Negative) Urine Bilirubin Negative (Negative) Urine Urobilinogen 4.0 (<2.0) mg/dL Ur Leukocyte Esterase Moderate H (Negative) Urine RBC 4 (0-5) /hpf Urine WBC 25 H (0-5) /hpf Ur Squamous Epith Cells 8 H (0-4) /hpf Urine Mucus Moderate H (None) /hpf Urine HCG, Qual Not Detected (Not Detectd) Urine Opiates Screen Not Detected (NotDetected) Ur Oxycodone Screen Not Detected (NotDetected) Urine Methadone Screen Not Detected (NotDetected) Ur Propoxyphene Screen Not Detected (NotDetected) Ur Barbiturates Screen Not Detected (NotDetected) U Tricyclic Antidepress Not Detected (NotDetected) Ur Phencyclidine Scrn Not Detected (NotDetected) Ur Amphetamines Screen Not Detected (NotDetected) U Methamphetamines Scrn Not Detected (NotDetected) U Benzodiazepines Scrn Detected H (NotDetected) Urine Cocaine Screen Detected H (NotDetected) U Marijuana (THC) Screen Detected H (NotDetected) - Radiology Data Radiology results: report reviewed, image reviewed Disposition Clinical Impression: Abdominal pain, Gastroenteritis and colitis, viral Disposition: HOME SELF-CARE Instructions (If sedation given, give patient instructions): Gastroenteritis (ED), Acute Nausea and Vomiting (ED), Colitis (ED) Additional Instructions: Return to the emergency department with any new, worsening, or concerning symptoms. Take the Toradol and Tylenol as needed for pain relief. If you choose to take the Toradol, do not take any other anti-inflammatories such as ibuprofen. Take one or the other. You can alternate with the Reglan and the Zofran that was previously prescribed as needed for nausea and vomiting. Slowly advance your diet as tolerated and remain well-hydrated. Take the Davis sparingly when your pain is the most severe. Be aware that it may make you drowsy and you should avoid driving or operating machinery when taking this. Follow up with your primary care provider in 1-2 days. Prescriptions: HYDROcodone/APAP 7.5-325MG [Davis 7.5-325] 1 tab PO Q6HR PRN 3 Days #12 tab PRN Reason: Pain Metoclopramide [Reglan] 10 mg PO Q6H PRN #20 tab PRN Reason: Nausea And Vomiting Ketorolac [Toradol] 10 mg PO Q6HR PRN #15 tab PRN Reason: Pain Is patient prescribed a controlled substance at d/c from ED?: Yes When asked, does pt state using other controlled substances?: No If prescribed controlled substance>3 days was MAPS reviewed?: Prescribed <3 Days Referrals: Aldo Perez MD [Primary Care Provider] - 1-2 days
[2022-10-05 08:46] LABS: Basophils % (A) 0 %; Eosinophils # (A) 0.2 k/uL (0-0.7); Eosinophils % (A) 2 %; HCT 37.6 % (34.0-46.0); HGB 12.7 gm/dL (11.4-16.0); Lymphocytes # (A) 2.8 k/uL (1.0-4.8); Lymphocytes % (A) 36 %; MCH 28.8 pg (25.0-35.0); MCHC 33.6 g/dL (31.0-37.0); MCV 85.7 fL (80.0-100.0); Mean Platelet Volume 7.7; Monocytes # (A) 0.3 k/uL (0-1.0); Monocytes % (A) 4 %; Neutrophils # (A) 4.5 k/uL (1.3-7.7); Neutrophils % (A) 57 %; Platelet Count 251 k/uL (150-450); RBC 4.39 m/uL (3.80-5.40); WBC 7.9 k/uL (3.8-10.6)
[2022-10-05 08:55] LABS: ALT 12 U/L (4-34); AST 19 U/L (14-36); African American GFR (CKD) >90 (>60 ml/min/1.73 sqM); Albumin 3.9 g/dL (3.5-5.0); Alkaline Phosphatase 77 U/L (38-126); Amylase 54 U/L (30-110); Anion Gap 7 mmol/L; Blood Urea Nitrogen 9 mg/dL (7-17); Calcium 9.1 mg/dL (8.4-10.2); Carbon Dioxide 29 mmol/L (22-30); Chloride 100 mmol/L (98-107); Glucose 106 mg/dL (74-99); Lipase 65 U/L (23-300); Non-African American GFR(CKD) >90 (>60 ml/min/1.73 sqM); Potassium 3.5 mmol/L (3.5-5.1); Sodium 136 mmol/L (137-145); Total Bilirubin 0.4 mg/dL (0.2-1.3); Total Protein 7.2 g/dL (6.3-8.2)
[2022-10-05 09:00] LABS: Appearance,Urine Cloudy (Clear); Bilirubin,Urine Negative (Negative); Blood,Urine Small (Negative); Color,Urine Light Red; Glucose,Urine (UA) Negative (Negative); Ketones,Urine Trace (Negative); Leukocyte Esterase,Urine Moderate (Negative); Mucus,Urine Moderate /hpf; Nitrite,Urine Negative (Negative); PH, Urine 6.5 (5.0-8.0); Protein,Urine 1+ (Negative); RBC,Urine 4 /hpf (0-5); Specific Gravity,Urine 1.029 (1.001-1.035); Squamous Epithelial Cell,Urine 8 /hpf (0-4); WBC,Urine 25 /hpf (0-5)
[2022-10-05 09:07] LABS: Phencyclidine Screen,Urine Not Detected (NotDetected); Urn Cannabinoid Scrn Detected (NotDetected)
[2022-10-05 09:08] LABS: Amphetamine Screen,Urine Not Detected (NotDetected); Barbiturate Screen,Urine Not Detected (NotDetected); Benzodiazepines Screen,Urine Detected (NotDetected); Cocaine Screen,Urine Detected (NotDetected); Methadone Screen, Urine Not Detected (NotDetected); Opiate Screen,Urine Not Detected (NotDetected); Oxycodone Screen, Urine Not Detected (NotDetected); Tricyclic Antidepressant,Urine Not Detected (NotDetected)
[2022-10-05] MEDS ORDERED: HYDROmorphone 1 MG/ML 1 ML SYRINGE IVP STA (09:36)
[2022-10-05] MEDS ORDERED: KETOROLAC 15 MG/ML 1 ML VIAL IVP STA (09:36)
[2022-10-05] MEDS ORDERED: ONDANSETRON 4 MG/2 ML VIAL IVP STA (09:36)
--- NOTE | 2022-10-05 10:39 | CT ---
EXAMINATION TYPE: CT abdomen pelvis w con DATE OF EXAM: 10/05/2022 COMPARISON: 10/03/2022 HISTORY: abdominal pain CONTRAST: CT scan of the abdomen and pelvis is performed without Oral Contrast and with IV Contrast, patient in jected with 100 mL of Isovue 300. FINDINGS: LUNG BASES-: No visible nodule. No infiltrate. LIVER/GB: The gallbladder is surgically absent. Postoperative prominence of the extrahepatic biliar y tree. No space occupying hepatic lesion. PANCREAS: No inflammation. No distinct mass. SPLEEN: No splenic enlargement. No lesion seen. ADRENALS: No nodule. No thickening. KIDNEYS/BLADDER: No hydronephrosis. No nephrolithiasis. No distinct renal mass. Urinary bladder g rossly unremarkable. BOWEL: Normal appendix. There is wall thickening and distention of the small bowel as was seen previo usly. There is also increasing large bowel wall thickening. Correlate for gastroenterocolitis. No samuel e air or abscess seen. GENITAL ORGANS: No gross abnormality. LYMPH NODES: No greater than 1cm abdominal or pelvic lymph nodes are appreciated. AORTA: No significant abnormality. OSSEOUS STRUCTURES: No significant abnormality is seen. OTHER: No significant additional abnormality is seen. IMPRESSION: 1. There is wall thickening and distention of the small bowel as was seen previously. There is also i ncreasing large bowel wall thickening. Correlate for gastroenterocolitis.
[2022-10-05 11:05] VITALS: RESP 18
[2022-10-05] MEDS ORDERED: ONDANSETRON ODT 4 MG TAB PO STA (11:40)
[2022-10-05] MEDS ORDERED: HYDROcodone/APAP 7.5-325MG 1 EACH TAB PO ONE (11:40)
[2022-10-05] MEDS ORDERED: ACET/COD 300 MG/30 MG STARTER PACK 6 TAB BTL PO STA (12:36)
[2022-10-05 12:40] VITALS: BP 110/74; PULSE 66
== END 2022-10-05 12:51 | disposition home or self-care (01) ==
LOC: EC 07:23
DX: K52.9 Noninfective gastroenteritis and colitis, unspecified (principal); A08.4 Viral intestinal infection, unspecified; F17.200 Nicotine dependence, unspecified, uncomplicated; Z86.59 Personal history of other mental and behavioral disorders
CPT/HCPCS: 36415; 80053; 82150; 83605; 83690; 85025; 81001; 81025; 80306; 74177; 99285; 96374; 96375 ×5; 96361 ×2; J2270; J2765; J2405; J1170; J1885; C9113; Q9967

== ENCOUNTER 2023-01-06 08:20 | Emergency (ER) | payer OTHER ==
[2023-01-06 08:40] VITALS: RESP 18
--- NOTE | 2023-01-06 09:38 | ED ---
ENT HPI - General Chief complaint: ENT Stated complaint: Sore Throat Time Seen by Provider: 01/06/23 08:26 Source: patient, RN notes reviewed Mode of arrival: ambulatory Limitations: no limitations - History of Present Illness Initial comments: 37-year-old female presents emergency department for last sore throat, swallowing. Patient states started last few days. Patient states she has a lump on her left side of her jaw swelling in that region and a sore throat. No difficulty swallowing or difficulty breathing patient reports no fevers chills no difficulty eating or chewing. - Related Data Previous Rx's Medication Instructions Recorded Ondansetron Odt [Zofran Odt] 4 mg PO Q8HR PRN #10 tab 10/03/22 HYDROcodone/APAP 7.5-325MG [[place] 1 tab PO Q6HR PRN 3 Days #12 tab 10/05/22 7.5-325] Ketorolac [Toradol] 10 mg PO Q6HR PRN #15 tab 10/05/22 Metoclopramide [Reglan] 10 mg PO Q6H PRN #20 tab 10/05/22 Amoxic-Pot Clav 875-125Mg 1 tab PO Q12HR #20 tab 01/06/23 [Augmentin 875-125] Allergies Allergy/AdvReac Type Severity Reaction Status Date / Time No Known Allergies Allergy Verified 01/06/23 08:24 Review of Systems ROS Statement: Those systems with pertinent positive or pertinent negative responses have been documented in the HPI. ROS Other: All systems not noted in ROS Statement are negative. Past Medical History Past Medical History: Skin Disorder, Syncope Additional Past Medical History / Comment(s): Hidradenitis suppurativa with ABX and surgical txs, syncopy, UTI, chronic pain. GALLBLADDER DISORDER, pn eumothorax right lung in August 2020. History of Any Multi-Drug Resistant Organisms: None Reported Date of last positivie culture/infection: 12/23/2014 MDRO Source:: right axilla Past Surgical History: Section, Cholecystectomy Additional Past Surgical History / Comment(s): R axillary abscess (hidradenitis suppuriativa) removal, L axillary abscess (hidradenitis suppurativa) surgery- large excision with wound vac, sweat glands removed.03-07-16 I&D RT AXILLARY ABCESS. C-SEC X 2 Past Anesthesia/Blood Transfusion Reactions: No Reported Reaction Additional Past Anesthesia/Blood Transfusion Reaction / Comment(s): Pt received blood without reaction after 1st childbirth. Past Psychological History: Anxiety Smoking Status: Current every day smoker Past Alcohol Use History: Occasional Past Drug Use History: None Reported - Past Family History Father Family Medical History: No Reported History Additional Family Medical History / Comment(s): Father is healthy Mother Family Medical History: No Reported History Additional Family Medical History / Comment(s): Mother is healthy General Exam Limitations: no limitations General appearance: alert, in no apparent distress Head exam: Present: atraumatic, normocephalic, normal inspection Eye exam: Present: normal appearance, PERRL, EOMI. Absent: scleral icterus, conjunctival injection, periorbital swelling ENT exam: Present: mucous membranes moist, TM's normal bilaterally, normal external ear exam, other (Small nonfluctuant abscess left). Absent: normal oropharynx (Mild erythema) Neck exam: Present: normal inspection. Absent: tenderness, meningismus, lymphadenopathy Respiratory exam: Present: normal lung sounds bilaterally. Absent: respiratory distress, wheezes, rales, rhonchi, stridor Cardiovascular Exam: Present: regular rate, normal rhythm, normal heart sounds. Absent: systolic murmur, diastolic murmur, rubs, gallop, clicks Course Vital Signs 01/06/23 01/06/23 08:22 10:09 Temperature 98.5 F 98.2 F Pulse Rate 100 86 Respiratory 18 18 Rate Blood Pressure 112/74 126/76 O2 Sat by Pulse 98 99 Oximetry Medical Decision Making - Medical Decision Making Was pt. sent in by a medical professional or institution (, PA, DISPOSITION CLERK, urgent care, hospital, or fpc...) When possible be specific @ -No Did you speak to anyone other than the patient for history (EMS, parent, family, police, friend...)? What history was obtained from this source @ -No Did you review nursing and triage notes (agree or disagree)? Why? @ -I reviewed and agree with nursing and triage notes Were old charts reviewed (outside hosp., previous admission, EMS record, old EKG, old radiological studies, urgent care reports/EKG's, fpc records)? Report findings @ -No old charts were reviewed Differential Diagnosis (chest pain, altered mental status, abdominal pain women, abdominal pain men, vaginal bleeding, weakness, fever, dyspnea, syncope, headache, dizziness, GI bleed, back pain, seizure, CVA, palpatations, mental health, musculoskeletal)? @ -Facial abscess, pharyngitis, strep EKG interpreted by me (3pts min.). @ -None X-rays interpreted by me (1pt min.). @ -None done CT interpreted by me (1pt min.). @ -None done U/S interpreted by me (1pt. min.). @ -None done What testing was considered but not performed or refused? (CT, X-rays, U/S, labs)? Why? @ -None What meds were considered but not given or refused? Why? @ -None Did you discuss the management of the patient with other professionals (professionals i.e. , PA, DISPOSITION CLERK, lab, RT, psych nurse, social media content specialist, players club representative, teacher, navigating officer, binder caser)? Give summary @ -No Was smoking cessation discussed for >3mins.? @ -No Was critical care preformed (if so, how long)? @ -No Were there social determinants of health that impacted care today? How? (Homelessness, low income, unemployed, alcoholism, drug addiction, transportation, low edu. Level, literacy, decrease access to med. care, longterm, rehab)? @ -No Was there de-escalation of care discussed even if they declined (Discuss DNR or withdrawal of care, Hospice)? DNR status @ -No What co-morbidities impacted this encounter? (DM, HTN, Smoking, COPD, CAD, Cancer, CVA, ARF, Chemo, Hep., AIDS, mental health diagnosis, sleep apnea, morbid obesity)? @ -None Was patient admitted / discharged? Hospital course, mention meds given and route, prescriptions, significant lab abnormalities, going to OR and other pertinent info. @ -Discharge patient has a left-sided facial abscess very small nonfluctuant oral antibiotics were started patient negative strep that she complaint of sore throat. Undiagnosed new problem with uncertain prognosis? @ -No Drug Therapy requiring intensive monitoring for toxicity (Heparin, Nitro, Insulin, Cardizem)? @ -No Were any procedures done? @ -No Diagnosis/symptom? @ -Pharyngitis, facial abscess Acute, or Chronic, or Acute on Chronic? @ -Acute Uncomplicated (without systemic symptoms) or Complicated (systemic symptoms)? @ -uncomplicated Side effects of treatment? @ -No Exacerbation, Progression, or Severe Exacerbation? @ -No Poses a threat to life or bodily function? How? (Chest pain, [place], [place], pneumonia, PE, COPD, DKA, ARF, appy, cholecystitis, CVA, Diverticulitis, Homicidal, Suicidal, threat to staff... and all critical care pts) @ -No - Lab Data Lab Results 01/06/23 Range/Units 08:42 Group A Strep (PCR) NOT DETECTED (Not Detectd) Disposition Clinical Impression: Acute pharyngitis, Facial swelling, Abscess Disposition: HOME SELF-CARE Condition: Stable Instructions (If sedation given, give patient instructions): Abscess (ED) Additional Instructions: Please return to the Emergency Department if symptoms worsen or any other concerns. Prescriptions: Amoxic-Pot Clav 875-125Mg [Augmentin 875-125] 1 tab PO Q12HR #20 tab Is patient prescribed a controlled substance at d/c from ED?: No Referrals: Aldo Perez MD [Primary Care Provider] - 1-2 days Time of Disposition: 09:38
[2023-01-06] MEDS ORDERED: ACET/COD 300 MG/30 MG STARTER PACK 6 TAB BTL PO STA (10:02)
[2023-01-06 10:13] VITALS: BP 126/76; PULSE 86; TEMP 98.2
== END 2023-01-06 10:11 | disposition home or self-care (01) ==
LOC: EC 08:20
DX: J02.9 Acute pharyngitis, unspecified (principal); L02.01 Cutaneous abscess of face; F17.200 Nicotine dependence, unspecified, uncomplicated; Z86.59 Personal history of other mental and behavioral disorders
CPT/HCPCS: 87651; 99283

== ENCOUNTER 2023-01-25 16:12 | Emergency (ER) | payer OTHER ==
[2023-01-25 17:04] VITALS: RESP 20
[2023-01-25] MEDS ORDERED: KETOROLAC 15 MG/ML 1 ML VIAL IM STA (20:15)
[2023-01-25] MEDS ORDERED: KETOROLAC 15 MG/ML 1 ML VIAL IVP STA (20:37)
--- NOTE | 2023-01-25 20:51 | ED ---
General Adult HPI - General Chief complaint: Skin/Abscess/Foreign Body Stated complaint: Boil under R eye Time Seen by Provider: 01/25/23 20:05 Source: patient, RN notes reviewed Mode of arrival: ambulatory Limitations: no limitations - History of Present Illness Initial comments: 37-year-old female presents emergency Department with chief complaint of painful lump under her right axilla. She has a history of hidradenitis supprutiva. She states that this lump under her armpit has been present for around 3 days. She has not been on any antibiotic treatment thus far. She has had to have surgery for this in the past. She sees Dr. Tinoco. She denies any fever, chills. Denies nausea, vomiting. - Related Data Previous Rx's Medication Instructions Recorded Ondansetron Odt [Zofran Odt] 4 mg PO Q8HR PRN #10 tab 10/03/22 HYDROcodone/APAP 7.5-325MG [Gilbert 1 tab PO Q6HR PRN 3 Days #12 tab 10/05/22 7.5-325] Ketorolac [Toradol] 10 mg PO Q6HR PRN #15 tab 10/05/22 Metoclopramide [Reglan] 10 mg PO Q6H PRN #20 tab 10/05/22 Amoxic-Pot Clav 875-125Mg 1 tab PO Q12HR #20 tab 01/06/23 [Augmentin 875-125] Doxycycline [Vibramycin] 100 mg PO BID #20 capsule 01/25/23 Fluconazole [Diflucan] 150 mg PO ONCE #1 tab 01/25/23 HYDROcodone/APAP 5-325MG [Gilbert 5] 1 each PO Q6HR PRN #12 tab 01/25/23 Allergies Allergy/AdvReac Type Severity Reaction Status Date / Time No Known Allergies Allergy Verified 01/06/23 08:24 Review of Systems ROS Statement: Those systems with pertinent positive or pertinent negative responses have been documented in the HPI. ROS Other: All systems not noted in ROS Statement are negative. Past Medical History Past Medical History: Skin Disorder, Syncope Additional Past Medical History / Comment(s): Hidradenitis suppurativa with ABX and surgical txs, syncopy, UTI, chronic pain. GALLBLADDER DISORDER, pneumothorax right lung in August 2020. History of Any Multi-Drug Resistant Organisms: None Reported Date of last positivie culture/infection: 12/23/2014 MDRO Source:: right axilla Past Surgical History: Section, Cholecystectomy Additional Past Surgical History / Comment(s): R axillary abscess (hidradenitis suppuriativa) removal, L axillary abscess (hidradenitis suppurativa) surgery- large excision with wound vac, sweat glands removed.03-07-16 I&D RT AXILLARY ABCESS. C-SEC X 2 Past Anesthesia/Blood Transfusion Reactions: No Reported Reaction Additional Past Anesthesia/Blood Transfusion Reaction / Comment(s): Pt received blood without reaction after 1st childbirth. Past Psychological History: Anxiety Smoking Status: Current every day smoker Past Alcohol Use History: Occasional Past Drug Use History: None Reported - Past Family History Father Family Medical History: No Reported History Additional Family Medical History / Comment(s): Father is healthy Mother Family Medical History: No Reported History Additional Family Medical History / Comment(s): Mother is healthy General Exam Limitations: no limitations General appearance: alert, in no apparent distress Head exam: Present: atraumatic, normocephalic, normal inspection Eye exam: Present: normal appearance, PERRL, EOMI. Absent: scleral icterus, conjunctival injection, periorbital swelling ENT exam: Present: normal exam, mucous membranes moist Respiratory exam: Present: normal lung sounds bilaterally. Absent: respiratory distress, wheezes, rales, rhonchi, stridor Cardiovascular Exam: Present: regular rate, normal rhythm, normal heart sounds. Absent: systolic murmur, diastolic murmur, rubs, gallop, clicks Neurological exam: Present: alert, oriented X3 Psychiatric exam: Present: normal affect, normal mood Skin exam: Present: warm, dry, intact, other (Tender, Indurated area under right axilla) Course Vital Signs 01/25/23 01/25/23 16:49 21:22 Temperature 98.3 F 98.6 F Pulse Rate 110 H 98 Respiratory 20 20 Rate Blood Pressure 130/94 134/86 O2 Sat by Pulse 99 98 Oximetry Medical Decision Making - Medical Decision Making Was pt. sent in by a medical professional or institution (, PA, AUTO MECHANIC APPRENTICE, urgent care, hospital, or long term...) When possible be specific @ -No Did you speak to anyone other than the patient for history (EMS, parent, family, police, friend...)? What history was obtained from this source @ -No Did you review nursing and triage notes (agree or disagree)? Why? @ -I reviewed and agree with nursing and triage notes Were old charts reviewed (outside hosp., previous admission, EMS record, old EKG, old radiological studies, urgent care reports/EKG's, long term records)? Report findings @ -No old charts were reviewed Differential Diagnosis (chest pain, altered mental status, abdominal pain women, abdominal pain men, vaginal bleeding, weakness, fever, dyspnea, syncope, headache, dizziness, GI bleed, back pain, seizure, CVA, palpatations, mental health, musculoskeletal)? @ -HS, abscess, cellulitis, this list is not all inclusive EKG interpreted by me (3pts min.). @ -None X-rays interpreted by me (1pt min.). @ -None done CT interpreted by me (1pt min.). @ -None done U/S interpreted by me (1pt. min.). @ -None done What testing was considered but not performed or refused? (CT, X-rays, U/S, labs)? Why? @ -None What meds were considered but not given or refused? Why? @ -None Did you discuss the management of the patient with other professionals (professionals i.e. , PA, AUTO MECHANIC APPRENTICE, lab, RT, psych nurse, psychotherapist social worker, manager resource, teacher, toxics program officer, human services case manager)? Give summary @ -No Was smoking cessation discussed for >3mins.? @ -No Was critical care preformed (if so, how long)? @ -No Were there social determinants of health that impacted care today? How? (Homelessness, low income, unemployed, alcoholism, drug addiction, transportation, low edu. Level, literacy, decrease access to med. care, [facility], rehab)? @ -No Was there de-escalation of care discussed even if they declined (Discuss DNR or withdrawal of care, Hospice)? DNR status @ -No What co-morbidities impacted this encounter? (DM, HTN, Smoking, COPD, CAD, Cancer, CVA, ARF, Chemo, Hep., AIDS, mental health diagnosis, sleep apnea, morbid obesity)? @ -None Was patient admitted / discharged? Hospital course, mention meds given and route, prescriptions, significant lab abnormalities, going to OR and other pertinent info. @ -Discharged. Patient presented to the emergency department for chief complaint of pain under her right armpit. Patient has a history of HS. she states that she developed a painful lesion 3 days ago. She denies fever, chills, nausea, vomiting. She has not tried any antibiotics on outpatient basis at this point. Discussed risks of drainage of HS lesion. She'll be started on outpatient antibiotics and given medication for pain control. She was advised to follow-up with her surgeon. Patient understands agreeable with discharge plan. Patient stable at time of discharge. Case discussed with Dr. Rivero Undiagnosed new problem with uncertain prognosis? @ -No Drug Therapy requiring intensive monitoring for toxicity (Heparin, Nitro, Insulin, Cardizem)? @ -No Were any procedures done? @ -No Diagnosis/symptom? @ -Hidradenitis suppurativa Acute, or Chronic, or Acute on Chronic? @ -Acute Uncomplicated (without systemic symptoms) or Complicated (systemic symptoms)? @ -Uncomplicated Side effects of treatment? @ -No Exacerbation, Progression, or Severe Exacerbation? @ -No Poses a threat to life or bodily function? How? (Chest pain, [place], [place], pneumonia, PE, COPD, DKA, ARF, appy, cholecystitis, CVA, Diverticulitis, Homicidal, Suicidal, threat to staff... and all critical care pts) @ -No Disposition Clinical Impression: Hidradenitis suppurativa Disposition: HOME SELF-CARE Condition: Stable Prescriptions: Fluconazole [Diflucan] 150 mg PO ONCE #1 tab HYDROcodone/APAP 5-325MG [Gilbert 5] 1 each PO Q6HR PRN #12 tab PRN Reason: Pain Doxycycline [Vibramycin] 100 mg PO BID #20 capsule Is patient prescribed a controlled substance at d/c from ED?: No Referrals: Aldo Perez MD [Primary Care Provider] - 1-2 days Kathi Tinoco MD [STAFF PHYSICIAN] - 1-2 days
[2023-01-25] MEDS ORDERED: DOXYCYCLINE 100 MG CAP PO STA (20:56)
[2023-01-25] MEDS ORDERED: HYDROmorphone 1 MG/ML 1 ML SYRINGE IM STA (20:57)
[2023-01-25] MEDS ORDERED: ACET/COD 300 MG/30 MG STARTER PACK 6 TAB BTL PO STA (20:58)
[2023-01-25] MEDS ORDERED: IBUPROFEN 600 MG STARTER PACK 4 TAB BTL PO STA (20:58)
[2023-01-25 21:46] VITALS: BP 134/86; PULSE 98; TEMP 98.6
== END 2023-01-25 21:22 | disposition home or self-care (01) ==
LOC: EC 16:12
DX: L73.2 Hidradenitis suppurativa (principal); F17.200 Nicotine dependence, unspecified, uncomplicated; Z86.59 Personal history of other mental and behavioral disorders
CPT/HCPCS: 99283; 96372 ×2; J1170; J1885

== ENCOUNTER 2023-04-19 09:58 | Emergency (ER) | payer OTHER ==
--- NOTE | 2023-04-19 10:30 | ED ---
Nausea/Vomiting/Diarrhea HPI - General Chief complaint: Nausea/Vomiting/Diarrhea Stated complaint: Flu Symptoms Time Seen by Provider: 04/19/23 10:11 Source: patient, RN notes reviewed Mode of arrival: ambulatory Limitations: no limitations - History of Present Illness Initial comments: This is a 38 year old female who presents to the emergency department for nausea, vomiting, and body aches. States that she had fevers, coughing, chest pain, and shortness of breath several days ago when she went to [facility]. States she was told that she had pneumonia and she was started on antibiotics. However, since yesterday she has had nausea, vomiting, generalized abdominal pain, and body aches. States that she also feels like she has a fever. Denies any chest pain, coughing, or shortness of breath at this time, and states that symptoms are now all gastrointestinal in nature. MD complaint: nausea, vomiting, abdominal pain - Related Data Previous Rx's Medication Instructions Recorded Ondansetron Odt [Zofran Odt] 4 mg PO Q8HR PRN #10 tab 10/03/22 HYDROcodone/APAP 7.5-325MG [Nabb 1 tab PO Q6HR PRN 3 Days #12 tab 10/05/22 7.5-325] Ketorolac [Toradol] 10 mg PO Q6HR PRN #15 tab 10/05/22 Metoclopramide [Reglan] 10 mg PO Q6H PRN #20 tab 10/05/22 Amoxic-Pot Clav 875-125Mg 1 tab PO Q12HR #20 tab 01/06/23 [Augmentin 875-125] Doxycycline [Vibramycin] 100 mg PO BID #20 capsule 01/25/23 Fluconazole [Diflucan] 150 mg PO ONCE #1 tab 01/25/23 HYDROcodone/APAP 5-325MG [Nabb 5] 1 each PO Q6HR PRN #12 tab 01/25/23 Ketorolac [Toradol] 10 mg PO Q6HR PRN #15 tab 04/19/23 Ondansetron Odt [Zofran Odt] 4 mg PO Q8HR PRN #20 tab 04/19/23 Allergies Allergy/AdvReac Type Severity Reaction Status Date / Time No Known Allergies Allergy Verified 04/19/23 10:05 Review of Systems ROS Statement: Those systems with pertinent positive or pertinent negative responses have been documented in the HPI. ROS Other: All systems not noted in ROS Statement are negative. Past Medical History Past Medical History: Skin Disorder, Syncope Additional Past Medical History / Comment(s): Hidradenitis suppurativa with ABX and surgical txs, syncopy, UTI, chronic pain. GALLBLADDER DISORDER, pneu mothorax right lung in August 2020. History of Any Multi-Drug Resistant Organisms: None Reported Date of last positivie culture/infection: 12/23/2014 MDRO Source:: right axilla Past Surgical History: Section, Cholecystectomy Additional Past Surgical History / Comment(s): R axillary abscess (hidradenitis suppuriativa) removal, L axillary abscess (hidradenitis suppurativa) surgery- large excision with wound vac, sweat glands removed.03-07-16 I&D RT AXILLARY ABCESS. C-SEC X 2 Past Anesthesia/Blood Transfusion Reactions: No Reported Reaction Additional Past Anesthesia/Blood Transfusion Reaction / Comment(s): Pt received blood without reaction after 1st childbirth. Past Psychological History: Anxiety Smoking Status: Current every day smoker Past Alcohol Use History: Occasional Past Drug Use History: Marijuana - Past Family History Father Family Medical History: No Reported History Additional Family Medical History / Comment(s): Father is healthy Mother Family Medical History: No Reported History Additional Family Medical History / Comment(s): Mother is healthy General Exam Limitations: no limitations General appearance: alert, in no apparent distress Head exam: Present: atraumatic, normocephalic, normal inspection Respiratory exam: Present: normal lung sounds bilaterally. Absent: respiratory distress, wheezes, rales, rhonchi, stridor Cardiovascular Exam: Present: regular rate, normal rhythm, normal heart sounds. Absent: systolic murmur, diastolic murmur, rubs, gallop, clicks GI/Abdominal exam: Present: soft, normal bowel sounds. Absent: distended, tenderness, guarding, rebound, rigid Neurological exam: Present: alert, oriented X3, CN II-XII intact Psychiatric exam: Present: normal affect, normal mood Skin exam: Present: warm, dry, intact, normal color. Absent: rash Course Vital Signs 04/19/23 04/19/23 04/19/23 10:01 10:23 11:38 Temperature 98.6 F 99.1 F 98.0 F Pulse Rate 85 75 Respiratory 18 18 Rate Blood Pressure 119/77 109/88 113/70 O2 Sat by Pulse 100 99 Oximetry 04/19/23 14:50 Temperature 98.1 F Pulse Rate 69 Respiratory 20 Rate Blood Pressure 99/69 O2 Sat by Pulse 100 Oximetry Medical Decision Making - Medical Decision Making This is a 38 year old female who presents to the emergency department for abdominal pain, nausea, and vomiting. Was pt. sent in by a medical professional or institution? @ -No Did you speak to anyone other than the patient for history? @ -No Did you review nursing and triage notes? @ -Yes, and I agree, it is accurate with regards to the patient's symptoms. Were old charts reviewed? @ -No Differential Diagnosis? @ -Differential Abdominal Pain Women: Appendicitis, Cholecystitis, diverticulosis, ischemic bowel, pancreatitis, hepatitis, UTI, gastroenteritis, AAA, incarcerated hernia, bowel obstruction, constipation, inflammatory bowel, hepatitis, peptic ulcer disease, splenic infarction, perforated viscus, vulvitis, ovarian torsion, PID, kidney stone, placenta abruption, this is not meant to be an all-inclusive list EKG interpreted by me (3pts min.)? @ -Not obtained X-rays interpreted by me (1pt min.)? @ -Not obtained CT interpreted by me (1pt min.)? @ -Not obtained U/S interpreted by me (1pt. min.)? @ -Not obtained What testing was considered but not performed? (CT, X-rays, U/S, labs)? Why? @ -None What meds were considered but not given? Why? @ -None Did you discuss the management of the patient with other professionals? @ -No Did you reconcile home meds? @ -No Was smoking cessation discussed for >3mins.? @ -I discussed smoking cessation for greater than 3 minutes. The risk of smoking were discussed with the patient including but not limited to risks of cancer, stroke, coronary artery disease and COPD. Also discussed with patient were multiple methods of quitting smoking. Lastly we discussed the financial cost of smoking. Was critical care preformed (if so, how long)? @ -No Were there social determinants of health that impacted care today? How? (Homelessness, low income, unemployed, alcoholism, drug addiction, transportation, low edu. Level, literacy, decrease access to med. care, residential, rehab)? @ -No Was there de-escalation of care discussed even if they declined? (Discuss DNR or withdrawal of care, Hospice)? @ -No What co-morbidities impacted this encounter? (DM, HTN, Smoking, COPD, CAD, Cancer, CVA, Hep., AIDS, mental health diagnosis, sleep apnea, morbid obesity)? @ -Smoking Was patient admitted / discharged? @ -Discharged. Lab work obtained and found to be unremarkable. Urinalysis negative for signs of infection. Patient positive for influenza A. Her symptoms were well controlled in the emergency department. She was tolerating oral intake and felt stable for discharge home. Prescription for Zofran and Toradol provided with dosing instructions reviewed. Advised she slowly advance her diet as tolerated and remain well-hydrated. Undiagnosed new problem with uncertain prognosis? @ -None Drug Therapy requiring intensive monitoring for toxicity (Heparin, Nitro, Insulin, Cardizem)? @ -None Were any procedures done? @ -None Diagnosis/symptom? @ -Influenza A, Nausea/Vomiting Acute, or Chronic, or Acute on Chronic? @ -Acute Uncomplicated (without systemic symptoms) or Complicated (systemic symptoms)? @ -Uncomplicated Side effects of treatment? @ -None Exacerbation, Progression, or Severe Exacerbation] @ -Not applicable Poses a threat to life or bodily function? @ -No Return precautions reviewed in depth, the patient is instructed to return to the emergency department with any new, worsening, or concerning symptoms. Patient verbalized understanding. This case was discussed in detail with the attending ED physician, Dr. Mark. Presentation, findings, and treatment plan discussed in detail as well. - Lab Data Result diagrams: 04/19/23 10:28 04/19/23 10:28 Lab Results 04/19/23 04/19/23 04/19/23 Range/Units 10:28 10:28 10:28 WBC 5.8 (3.8-10.6) k/uL RBC 4.45 (3.80-5.40) m/uL Hgb 12.5 (11.4-16.0) gm/dL Hct 37.8 (34.0-46.0) % MCV 84.9 (80.0-100.0) fL MCH 28.2 (25.0-35.0) pg MCHC 33.2 (31.0-37.0) g/dL RDW 13.3 (11.5-15.5) % Plt Count 304 (150-450) k/uL MPV 8.0 Neutrophils % (Manual) 53 % Lymphocytes % (Manual) 42 % Monocytes % (Manual) 5 % Neutrophils # (Manual) 3.07 (1.3-7.7) k/uL Lymphocytes # (Manual) 2.44 (1.0-4.8) k/uL Monocytes # (Manual) 0.29 (0-1.0) k/uL Nucleated RBCs 0 (0-0) /100 WBC Manual Slide Review Performed Sodium 137 (137-145) mmol/L Potassium 3.7 (3.5-5.1) mmol/L Chloride 103 (98-107) mmol/L Carbon Dioxide 29 (22-30) mmol/L Anion Gap 5 mmol/L BUN 11 (7-17) mg/dL Creatinine 0.62 (0.52-1.04) mg/dL Est GFR (CKD-EPI)AfAm >90 (>60 ml/min/1.73 sqM) Est GFR (CKD-EPI)NonAf >90 (>60 ml/min/1.73 sqM) Glucose 95 (74-99) mg/dL Plasma Lactic Acid Hua (0.7-2.0) mmol/L Calcium 9.2 (8.4-10.2) mg/dL Total Bilirubin 0.3 (0.2-1.3) mg/dL AST 31 (14-36) U/L ALT 30 (4-34) U/L Alkaline Phosphatase 77 (38-126) U/L Total Protein 6.9 (6.3-8.2) g/dL Albumin 3.7 (3.5-5.0) g/dL Amylase 55 (30-110) U/L Lipase 51 (23-300) U/L Urine Color Yellow Urine Appearance Cloudy H (Clear) Urine pH 5.5 (5.0-8.0) Ur Specific [place] 1.019 (1.001-1.035) Urine Protein Trace H (Negative) Urine Glucose (UA) Negative (Negative) Urine Ketones Negative (Negative) Urine Blood Small H (Negative) Urine Nitrite Negative (Negative) Urine Bilirubin Negative (Negative) Urine Urobilinogen <2.0 (<2.0) mg/dL Ur Leukocyte Esterase Trace H (Negative) Urine RBC 1 (0-5) /hpf Urine WBC 9 H (0-5) /hpf Ur Squamous Epith Cells 19 H (0-4) /hpf Urine Bacteria Rare H (None) /hpf Urine Mucus Rare H (None) /hpf Urine HCG, Qual (Not Detectd) Influenza Type A (PCR) (Not Detectd) Influenza Type B (PCR) (Not Detectd) RSV (PCR) (Not Detectd) SARS-CoV-2 (PCR) (Not Detectd) 04/19/23 04/19/23 04/19/23 Range/Units 10:28 10:28 10:28 WBC (3.8-10.6) k/uL RBC (3.80-5.40) m/uL Hgb (11.4-16.0) gm/dL Hct (34.0-46.0) % MCV (80.0-100.0) fL MCH (25.0-35.0) pg MCHC (31.0-37.0) g/dL RDW (11.5-15.5) % Plt Count (150-450) k/uL MPV Neutrophils % (Manual) % Lymphocytes % (Manual) % Monocytes % (Manual) % Neutrophils # (Manual) (1.3-7.7) k/uL Lymphocytes # (Manual) (1.0-4.8) k/uL Monocytes # (Manual) (0-1.0) k/uL Nucleated RBCs (0-0) /100 WBC Manual Slide Review Sodium (137-145) mmol/L Potassium (3.5-5.1) mmol/L Chloride (98-107) mmol/L Carbon Dioxide (22-30) mmol/L Anion Gap mmol/L BUN (7-17) mg/dL Creatinine (0.52-1.04) mg/dL Est GFR (CKD-EPI)AfAm (>60 ml/min/1.73 sqM) Est GFR (CKD-EPI)NonAf (>60 ml/min/1.73 sqM) Glucose (74-99) mg/dL Plasma Lactic Acid Hua 1.0 (0.7-2.0) mmol/L Calcium (8.4-10.2) mg/dL Total Bilirubin (0.2-1.3) mg/dL AST (14-36) U/L ALT (4-34) U/L Alkaline Phosphatase (38-126) U/L Total Protein (6.3-8.2) g/dL Albumin (3.5-5.0) g/dL Amylase (30-110) U/L Lipase (23-300) U/L Urine Color Urine Appearance (Clear) Urine pH (5.0-8.0) Ur Specific [place] (1.001-1.035) Urine Protein (Negative) Urine Glucose (UA) (Negative) Urine Ketones (Negative) Urine Blood (Negative) Urine Nitrite (Negative) Urine Bilirubin (Negative) Urine Urobilinogen (<2.0) mg/dL Ur Leukocyte Esterase (Negative) Urine RBC (0-5) /hpf Urine WBC (0-5) /hpf Ur Squamous Epith Cells (0-4) /hpf Urine Bacteria (None) /hpf Urine Mucus (None) /hpf Urine HCG, Qual Not Detected (Not Detectd) Influenza Type A (PCR) Detected A (Not Detectd) Influenza Type B (PCR) Not Detected (Not Detectd) RSV (PCR) Not Detected (Not Detectd) SARS-CoV-2 (PCR) Not Detected (Not Detectd) Disposition Clinical Impression: Nicotine dependence, Influenza A, Nausea and vomiting Disposition: HOME SELF-CARE Instructions (If sedation given, give patient instructions): Influenza (ED), Acute Nausea and Vomiting (ED) Additional Instructions: Return to the emergency department with any new, worsening, or concerning symptoms. Take the Toradol with Tylenol as needed for pain relief. If you choose to take the Toradol, do not take any other anti-inflammatories such as ibuprofen, take one or the other. Take the Zofran up to every 8 hours as needed for nausea and vomiting. Slowly advance your diet as tolerated and remain well-hydrated. Follow up with your primary care provider in 1-2 days. Prescriptions: Ketorolac [Toradol] 10 mg PO Q6HR PRN #15 tab PRN Reason: Pain Ondansetron Odt [Zofran Odt] 4 mg PO Q8HR PRN #20 tab PRN Reason: Nausea And Vomiting Is patient prescribed a controlled substance at d/c from ED?: No Referrals: Aldo Perez MD [Primary Care Provider] - 1-2 days Time of Disposition: 13:37
[2023-04-19] MEDS: SODIUM CHLORIDE 0.9% 1,000 ML IV STA (10:50)
[2023-04-19] MEDS: KETOROLAC 15 MG/ML 1 ML VIAL IVP STA (10:51)
[2023-04-19] MEDS: ONDANSETRON 4 MG/2 ML VIAL IVP STA (10:52)
[2023-04-19] MEDS: PANTOPRAZOLE 40 MG/10 ML VIAL IVP STA (10:55)
[2023-04-19] MEDS: ACETAMINOPHEN IV (For NPO) 1,000 MG in EMPTY BAG 1 BAG IVPB STA (11:01)
[2023-04-19 11:22] LABS: ALT 30 U/L (4-34); AST 31 U/L (14-36); African American GFR (CKD) >90 (>60 ml/min/1.73 sqM); Albumin 3.7 g/dL (3.5-5.0); Alkaline Phosphatase 77 U/L (38-126); Amylase 55 U/L (30-110); Anion Gap 5 mmol/L; Blood Urea Nitrogen 11 mg/dL (7-17); Calcium 9.2 mg/dL (8.4-10.2); Carbon Dioxide 29 mmol/L (22-30); Chloride 103 mmol/L (98-107); Glucose 95 mg/dL (74-99); Lipase 51 U/L (23-300); Non-African American GFR(CKD) >90 (>60 ml/min/1.73 sqM); Potassium 3.7 mmol/L (3.5-5.1); Sodium 137 mmol/L (137-145); Total Bilirubin 0.3 mg/dL (0.2-1.3); Total Protein 6.9 g/dL (6.3-8.2)
[2023-04-19 11:26] LABS: HCT 37.8 % (34.0-46.0); HGB 12.5 gm/dL (11.4-16.0); MCH 28.2 pg (25.0-35.0); MCHC 33.2 g/dL (31.0-37.0); MCV 84.9 fL (80.0-100.0); Platelet Count 304 k/uL (150-450); RBC 4.45 m/uL (3.80-5.40); RDW 13.3 % (11.5-15.5); WBC 5.8 k/uL (3.8-10.6)
[2023-04-19] MEDS: MORPHINE SULFATE 4 MG/ML SYRINGE IVP STA ×2 (11:45→14:43)
[2023-04-19 12:02] LABS: Lymphocytes # (M) 2.44 k/uL (1.0-4.8); Monocytes # (M) 0.29 k/uL (0-1.0); Neutrophils # (M) 3.07 k/uL (1.3-7.7); Neutrophils % (M) 53 %; Nucleated Red Blood Cells 0 /100 WBC (0-0); Total Cells Counted 100
[2023-04-19 13:01] LABS: Appearance,Urine Cloudy (Clear); Bacteria,Urine Rare /hpf; Bilirubin,Urine Negative (Negative); Blood,Urine Small (Negative); Color,Urine Yellow; Glucose,Urine (UA) Negative (Negative); Ketones,Urine Negative (Negative); Leukocyte Esterase,Urine Trace (Negative); Mucus,Urine Rare /hpf; Nitrite,Urine Negative (Negative); PH, Urine 5.5 (5.0-8.0); Protein,Urine Trace (Negative); RBC,Urine 1 /hpf (0-5); Specific Gravity,Urine 1.019 (1.001-1.035); Squamous Epithelial Cell,Urine 19 /hpf (0-4); Urobilinogen,Urine <2.0 mg/dL (<2.0); WBC,Urine 9 /hpf (0-5)
[2023-04-19] MEDS: ACET/COD 300 MG/30 MG STARTER PACK 6 TAB BTL PO STA (14:49)
[2023-04-19] MEDS: ONDANSETRON 4 MG ODT STARTER PACK 2 TAB BTL PO STA (14:49)
[2023-04-19 15:13] VITALS: BP 99/69; PULSE 69; RESP 20; TEMP 98.1
== END 2023-04-19 14:55 | disposition home or self-care (01) ==
LOC: EC 09:58
DX: J10.1 Influenza due to other identified influenza virus with other respiratory manifestations (principal); F17.210 Nicotine dependence, cigarettes, uncomplicated; F12.90 Cannabis use, unspecified, uncomplicated; Z20.822 Contact with and (suspected) exposure to COVID-19; Z90.49 Acquired absence of other specified parts of digestive tract
CPT/HCPCS: 36415; 80053; 82150; 83605; 83690; 85025; 81001; 81025; 87636; 99406; 99284; 96374; 96375 ×4; 96376; 96361; J2270; J2405; J0131; J1885; S0119; C9113

== ENCOUNTER 2023-12-26 00:33 | Emergency (ER) | payer OTHER ==
[2023-12-26 00:38] VITALS: TEMP 98.1
[2023-12-26] MEDS: ASPIRIN 81 MG PO STA (01:11)
[2023-12-26] MEDS: SODIUM CHLORIDE 0.9% 500 ML 500 ML IV STA (01:12)
--- NOTE | 2023-12-26 01:40 | XR ---
EXAMINATION TYPE: XR chest 2V DATE OF EXAM: 12/26/2023 COMPARISON: Chest x-ray December 13, 2022 HISTORY: Chest pain. TECHNIQUE: Frontal and lateral views of the chest are obtained. FINDINGS: There is no focal air space opacity, pleural effusion, or pneumothorax seen. The cardiac silhouette size is stable and within normal limits. The osseous structures are intact. IMPRESSION: No acute process. No significant change from most recent prior. [facility], , 12/26/2023 1:38 AM
[2023-12-26 01:50] LABS: INR 1.4 (<1.2); Partial Thromboplastin Time 22.2 sec (22.0-30.0); Prothrombin Time 14.2 sec (10.0-12.5)
[2023-12-26 02:04] LABS: ALT 10 U/L (4-34); AST 22 U/L (14-36); African American GFR (CKD) >90 (>60 ml/min/1.73 sqM); Albumin 3.8 g/dL (3.5-5.0); Alkaline Phosphatase 69 U/L (38-126); Anion Gap 5 mmol/L; Blood Urea Nitrogen 17 mg/dL (7-17); Calcium 8.9 mg/dL (8.4-10.2); Carbon Dioxide 18 mmol/L (22-30); Chloride 111 mmol/L (98-107); Glucose 94 mg/dL (74-99); Lipase 173 U/L (23-300); Magnesium 1.8 mg/dL (1.6-2.3); Non-African American GFR(CKD) >90 (>60 ml/min/1.73 sqM); Potassium 4.2 mmol/L (3.5-5.1); Sodium 134 mmol/L (137-145); Total Bilirubin 0.5 mg/dL (0.2-1.3); Total Protein 7.3 g/dL (6.3-8.2)
[2023-12-26] MEDS: KETOROLAC 15 MG/ML 1 ML VIAL IVP STA (03:05)
[2023-12-26 03:17] LABS: Basophils % (A) 0 %; Eosinophils # (A) 0.2 k/uL (0-0.7); Eosinophils % (A) 3 %; HCT 32.8 % (34.0-46.0); HGB 10.8 gm/dL (11.4-16.0); Lymphocytes # (A) 3.8 k/uL (1.0-4.8); Lymphocytes % (A) 48 %; MCH 28.4 pg (25.0-35.0); MCV 86.2 fL (80.0-100.0); Mean Platelet Volume 7.8; Monocytes # (A) 0.4 k/uL (0-1.0); Monocytes % (A) 5 %; Neutrophils # (A) 3.3 k/uL (1.3-7.7); Neutrophils % (A) 42 %; Platelet Count 267 k/uL (150-450); RBC 3.81 m/uL (3.80-5.40); RDW 13.6 % (11.5-15.5); WBC 7.9 k/uL (3.8-10.6)
--- NOTE | 2023-12-26 04:18 | CT ---
EXAM: CT Angiography Chest With Intravenous Contrast CLINICAL HISTORY: ITS.REASON CT Reason: CP, SOB TECHNIQUE: Axial computed tomographic angiography images of the chest with intravenous contrast. CTDI is 21.67 mGy and DLP is 326.8 mGy-cm. This CT exam was performed using one or more of the following dose reduction techniques: automated exposure control, adjustment of the mA and/or kV according to patient size, and/or use of iterative reconstruction technique. MIP reconstructed images were created and reviewed. COMPARISON: No relevant prior studies available. FINDINGS: LUNGS: No focal consolidation, pleural effusion, or pneumothorax. HEART: Within normal limits. VASCULATURE: No acute pulmonary embolism. THYROID: Within normal limits. MEDIASTINUM + LYMPH NODES: There are no pathologically enlarged mediastinal, hilar, or axillary lymph nodes. SUPERIOR ABDOMEN: The included portions of the superior abdomen are within normal limits. MUSCULOSKELETAL: Within normal limits. IMPRESSION: No acute pulmonary embolism.
--- NOTE | 2023-12-26 05:07 | ED ---
Chest Pain HPI - General Chief Complaint: Chest Pain Stated Complaint: Chest Pain Time Seen by Provider: 12/26/23 00:41 Source: patient Mode of arrival: ambulatory Limitations: no limitations - History of Present Illness Initial Comments: 38-year-old female presenting with chief complaint of chest pain. Patient has been having intermittent right-sided chest pain for the last 2 days. The pain was more frequent today which prompted her to come to the ER. She admits to worsening pain with deep breaths. No lower extremity swelling. No nausea vomiting or abdominal pain. No shortness of breath. No fever, chills, cough, congestion, sore throat. No headache or neck pain. - Related Data Previous Rx's Medication Instructions Recorded Ondansetron Odt [Zofran Odt] 4 mg PO Q8HR PRN #10 tab 10/03/22 HYDROcodone/APAP 7.5-325MG [[place] 1 tab PO Q6HR PRN 3 Days #12 tab 10/05/22 7.5-325] Ketorolac [Toradol] 10 mg PO Q6HR PRN #15 tab 10/05/22 Metoclopramide [Reglan] 10 mg PO Q6H PRN #20 tab 10/05/22 Amoxic-Pot Clav 875-125Mg 1 tab PO Q12HR #20 tab 01/06/23 [Augmentin 875-125] Doxycycline [Vibramycin] 100 mg PO BID #20 capsule 01/25/23 Fluconazole [Diflucan] 150 mg PO ONCE #1 tab 01/25/23 HYDROcodone/APAP 5-325MG [[place] 5] 1 each PO Q6HR PRN #12 tab 01/25/23 Ketorolac [Toradol] 10 mg PO Q6HR PRN #15 tab 04/19/23 Ondansetron Odt [Zofran Odt] 4 mg PO Q8HR PRN #20 tab 04/19/23 Allergies Allergy/AdvReac Type Severity Reaction Status Date / Time No Known Allergies Allergy Verified 12/26/23 00:34 Review of Systems ROS Statement: Those systems with pertinent positive or pertinent negative responses have been documented in the HPI. ROS Other: All systems not noted in ROS Statement are negative. Past Medical History Past Medical History: Skin Disorder, Syncope Additional Past Medical History / Comment(s): UTI, chronic pain. GALLBLADDER DISORDER, pneumothorax right lung in August 2020. History of Any Multi-Drug Resistant Organisms: None Reported Date of last positivie culture/infection: 12/23/2014 MDRO Source:: right axilla Past Surgical History: Section, Cholecystectomy Additional Past Surgical History / Comment(s): R axillary abscess (hidradenitis suppuriativa) removal, L axillary abscess (hidradenitis suppurativa) surgery- large excision with wound vac, sweat glands removed.03-07-16 I&D RT AXILLARY ABCESS. C-SEC X 2 Past Anesthesia/Blood Transfusion Reactions: No Reported Reaction Additional Past Anesthesia/Blood Transfusion Reaction / Comment(s): Pt received blood without reaction after 1st childbirth. Past Psychological History: Anxiety Smoking Status: Current every day smoker Past Alcohol Use History: Occasional Past Drug Use History: Marijuana - Past Family History Father Family Medical History: No Reported History Additional Family Medical History / Comment(s): Father is healthy Mother Family Medical History: No Reported History Additional Family Medical History / Comment(s): Mother is healthy General Exam Limitations: no limitations General appearance: alert, in no apparent distress Head exam: Present: atraumatic, normocephalic, normal inspection Eye exam: Present: normal appearance, EOMI Neck exam: Present: normal inspection. Absent: meningismus Respiratory exam: Present: normal lung sounds bilaterally. Absent: respiratory distress, wheezes, rales, rhonchi, stridor Cardiovascular Exam: Present: regular rate, normal rhythm, normal heart sounds. Absent: systolic murmur, diastolic murmur, rubs, gallop, clicks Extremities exam: Absent: pedal edema Neurological exam: Present: alert, oriented X3 Psychiatric exam: Present: normal affect, normal mood Skin exam: Present: warm, dry, normal color Course Vital Signs 12/26/23 12/26/23 12/26/23 00:35 01:38 03:00 Temperature 98.1 F Pulse Rate 74 71 65 Respiratory 16 16 17 Rate Blood Pressure 105/79 121/89 115/89 O2 Sat by Pulse 100 99 96 Oximetry 12/26/23 05:38 Temperature Pulse Rate 74 Respiratory 18 Rate Blood Pressure 118/70 O2 Sat by Pulse 100 Oximetry Chest Pain MDM - MDM Was pt. sent in by a medical professional or institution (, PA, [facility] [employer], urgent care, hospital, or care home...) When possible be specific @ -No Did you speak to anyone other than the patient for history (EMS, parent, family, police, friend...)? What history was obtained from this source @ -No Did you review nursing and triage notes (agree or disagree)? Why? @ -I reviewed and agree with nursing and triage notes Were old charts reviewed (outside hosp., previous admission, EMS record, old EKG, old radiological studies, urgent care reports/EKG's, care home records)? Report findings @ -No old charts were reviewed Differential Diagnosis (chest pain, altered mental status, abdominal pain women, abdominal pain men, vaginal bleeding, weakness, fever, dyspnea, syncope, headache, dizziness, GI bleed, back pain, seizure, CVA, palpatations, mental health, musculoskeletal)? @ -MDM Differential Chest Pain: Stable Angina, Unstable Angina, STEMI, NSTEMI Aortic Dissection, Pneumothorax, Musculoskeletal, Esophageal Spasm GERD, Cholecystitis, Pancreatitis, Zos ter This is not meant to be an all-inclusive list. EKG interpreted by me (3pts min.). @ -EKG shows sinus rhythm ventricular rate 75. LA interval 206. QRS 90. QT 370. QTc 399. X-rays interpreted by me (1pt min.). @ -Chest x-ray shows no acute process. No significant change from most recent prior CT interpreted by me (1pt min.). @ -CTA shows no acute pulmonary embolism U/S interpreted by me (1pt. min.). @ -None done What testing was considered but not performed or refused? (CT, X-rays, U/S, labs)? Why? @ -None What meds were considered but not given or refused? Why? @ -None Did you discuss the management of the patient with other professionals (professionals i.e. , PA, [employer], lab, RT, psych nurse, licensed social worker, head of marketing, teacher, delinquency prevention officer, mental health case manager)? Give summary @ -No Was smoking cessation discussed for >3mins.? @ -No Was critical care preformed (if so, how long)? @ -No Were there social determinants of health that impacted care today? How? (Homelessness, low income, unemployed, alcoholism, drug addiction, transportation, low edu. Level, literacy, decrease access to med. care, long term, rehab)? @ -No Was there de-escalation of care discussed even if they declined (Discuss DNR or withdrawal of care, Hospice)? DNR status @ -No What co-morbidities impacted this encounter? (DM, HTN, Smoking, COPD, CAD, Cancer, CVA, ARF, Chemo, Hep., AIDS, mental health diagnosis, sleep apnea, morbid obesity)? @ -None Was patient admitted / discharged? Hospital course, mention meds given and route, prescriptions, significant lab abnormalities, going to OR and other pertinent info. @ -38-year-old female presenting with chief complaint of chest pain ongoing for 2 days. History and physical examination are conducted. Troponin 0.019. D- dimer 0.60. Chest x-ray shows no acute process. CTA is obtained which has not evidence of pulmonary embolism. EKG shows sinus rhythm. Heart score of 2. On reassessment patient is resting comfortably showing no acute signs of distress. She is educated on today's findings. Patient will be discharged home and is instructed to follow-up with her PCP. Discharged. Follow-up with PCP. Report back to ER with any new or worsening symptoms. Discussed return parameters and answered all questions. Patient conveyed verbal understanding and agreed to the plan. I discussed this case in detail with my attending Dr. Faulkner Undiagnosed new problem with uncertain prognosis? @ -No Drug Therapy requiring intensive monitoring for toxicity (Heparin, Nitro, Insulin, Cardizem)? @ -No Were any procedures done? @ -No Diagnosis/symptom? @ -Chest pain Acute, or Chronic, or Acute on Chronic? @ -Acute Uncomplicated (without systemic symptoms) or Complicated (systemic symptoms)? @ -Uncomplicated Side effects of treatment? @ -No Exacerbation, Progression, or Severe Exacerbation? @ -No Poses a threat to life or bodily function? How? (Chest pain, [place], [place], pneumonia, PE, COPD, DKA, ARF, appy, cholecystitis, CVA, Diverticulitis, Homicidal, Suicidal, threat to staff... and all critical care pts) @ -Low likelihood Disposition Clinical Impression: Chest pain Disposition: HOME SELF-CARE Condition: Good Instructions (If sedation given, give patient instructions): Chest Pain (ED) Additional Instructions: Follow-up with PCP. Report back to ER with any new or worsening symptoms. Is patient prescribed a controlled substance at d/c from ED?: No Referrals: Ana,Emad, MD [Primary Care Provider] - 1-2 days Time of Disposition: 05:07
[2023-12-26 05:39] VITALS: BP 118/70; PULSE 74; RESP 18
== END 2023-12-26 05:57 | disposition home or self-care (01) ==
LOC: EC 00:33
DX: R07.89 Other chest pain (principal); F17.200 Nicotine dependence, unspecified, uncomplicated
CPT/HCPCS: 36415; 93005; 85379; 80053; 83690; 83735; 84484; 85025; 85610; 85730; 71046; 71275; 99285; 96374; J1885; Q9967